=== PATIENT | male | born 1935 | race Caucasian/White ===

== ENCOUNTER 2016-11-29 14:55 | Emergency (ER) | payer OTHER, MEDICARE ==
[~2016-11-29 14:55] MED LIST: ABILIFY5 MG PO; ACETAMINOPHEN325 MG PO; ACETAMINOPHEN650 MG PR; ALPRAZOLAM0.25 MG PO; AMBIEN5 MG PO; ASPIRIN81 M1 PO; CARAFATE EQUIVAL1 GM PO; CARDIZEM C2 PO; CEPHALEXIN500 MG PO; DIGOXIN0.125 MG PO; GABAPENTIN300 MG PO; IPRATROPIUM BROMIDE/ IN; IRON325 MG PO; METHADONE HCL10 MG PO; METOPROLOL SUCC25 MG PO; METRONIDAZOLE500 MG PO; NICOTINE T21 MG/24 H TOP; NITROSTAT0.4 MG SL; O2; RANITIDINE ACID75 MG PO; REGLAN5 MG PO; ULTRAM EQIVALEN50 MG PO; ZOFRAN ODT4 MG PO; ZOLOFT50 MG PO
--- NOTE | 2016-11-29 16:46 | ED NURSING NOTES ---
Clinical Report - Nurses [facility] [place] [address] 11/29/2016 14:55 Patient: KOTA ROCHE TRIAGE Triage time 1550. --16:04 Ronald Forte R.N. History ( triage started, family asking about wait. Notified that no rooms were open and pt would have to wait in WR until room became available. Pt and son state he is fine and they will come back tomorrow. Pt is alert, oriented, no distress. Advised to stay for treatment, pt and family declines.). --16:04 Ronald Forte R.N. DISPOSITION / DISCHARGE The patient left the Emergency Department before triage; patient was accompanied by a family member. The patient appears to be alert, oriented x4, coherent and in no acute distress. The patient stated is leaving the ED due to the long waiting time. Prior to leaving the ED, he was advised to stay for completion of treatment and return if needed. He was informed of the risks of leaving and verbalized understanding of these risks. Patient left without signing form prior to leaving. He left the Emergency Department via private vehicle. --16:05 Ronald Forte R.N. Locked/Released at 11/29/2016 22:27 by Ronald Forte R.N.
--- NOTE | 2016-11-29 16:46 | ED NURSING NOTES ---
Clinical Report - Nurses [facility] [place] [address] 11/29/2016 14:55 Patient: KOTA ROCHE TRIAGE Triage time 1550. --16:04 Ronald Forte R.N. History ( triage started, family asking about wait. Notified that no rooms were open and pt would have to wait in WR until room became available. Pt and son state he is fine and they will come back tomorrow. Pt is alert, oriented, no distress. Advised to stay for treatment, pt and family declines.). --16:04 Ronald Forte R.N. DISPOSITION / DISCHARGE The patient left the Emergency Department before triage; patient was accompanied by a family member. The patient appears to be alert, oriented x4, coherent and in no acute distress. The patient stated is leaving the ED due to the long waiting time. Prior to leaving the ED, he was advised to stay for completion of treatment and return if needed. He was informed of the risks of leaving and verbalized understanding of these risks. Patient left without signing form prior to leaving. He left the Emergency Department via private vehicle. --16:05 Ronald Forte R.N. Locked/Released at 11/29/2016 22:27 by Ronald Forte R.N.
--- NOTE | 2016-11-29 22:27 | ED MED RECONCILIATION SUMMARY ---
Patient: KOTA ROCHE Medication Reconciliation Report [facility] VisitID: [id number] [address] [place] [place] [address] 81y, M Registration Date/Time: 11/29/2016 Weight: (not available) Height/Length: (not available) BMI: (not available) ALLERGIES: The patient's Home Medications are listed below: Not obtained. The source(s) of the original Home Medication information: Not obtained. The following Medications were given to the patient in the Emergency Department: None. The following Medications were prescribed to the patient: None.
--- NOTE | 2016-11-29 22:27 | ED MED RECONCILIATION SUMMARY ---
Patient: KOTA ROCHE Medication Reconciliation Report [facility] VisitID: [id number] [address] [place] [address] 81y, M Registration Date/Time: 11/29/2016 Weight: (not available) Height/Length: (not available) BMI: (not available) ALLERGIES: The patient's Home Medications are listed below: Not obtained. The source(s) of the original Home Medication information: Not obtained. The following Medications were given to the patient in the Emergency Department: None. The following Medications were prescribed to the patient: None.
--- NOTE | 2016-11-29 22:27 | ED MAR SUMMARY ---
..... Medication Administration Record [facility] [address] [place], [place] [id number] Patient: KOTA ROCHE Visit ID: [id number] 81y, M Weight: (not available) Height/Length: (not available) BMI: (not available) ALLERGIES:
--- NOTE | 2016-11-29 22:27 | ED MAR SUMMARY ---
..... Medication Administration Record [facility] [address] [place], [place] [id number] Patient: KOTA ROCHE Visit ID: [id number] 81y, M Weight: (not available) Height/Length: (not available) BMI: (not available) ALLERGIES:
== END 2016-11-29 16:00 | disposition left against medical advice (07) ==
LOC: ED SRH 14:55
DX: Z53.21 Procedure and treatment not carried out due to patient leaving prior to being seen by health care provider (principal)

== ENCOUNTER 2016-12-02 13:16 | Emergency (ER) | payer OTHER, MEDICARE ==
--- NOTE | 2016-12-02 14:52 | DIAGNOSTIC IMAGING REPORT ---
PROCEDURE: XR ANKLE 3 OR 4 VIEWS - LEFT INDICATION: TRAUMA/INJURY TECHNIQUE: Four views. COMPARISON: None. FINDINGS: Moderate soft tissue swelling over the lateral malleolus. Osseous structures are osteopenic. Osseous structure and joint spaces are otherwise normal. No evidence of fracture. IMPRESSION: 1. Normal moderate soft tissue swelling over the lateral malleolus. 2. Osteopenia. 3. Otherwise negative left ankle.
--- NOTE | 2016-12-02 15:35 | ED NURSING NOTES ---
Clinical Report - Nurses [facility] [address] [place] [address] 12/02/2016 13:16 Patient: KOTA ROCHE TRIAGE Triage time 13:29. Acuity: LEVEL 3. Chief Complaint: ABDOMINAL PAIN, NAUSEA, VOMITING and DIARRHEA and (DIARRHEA FOR A WEEK. Weakness, fell a couple of days ago, x2-3. C/O lt ankle and lt rib cage.). Alert. No acute distress. SEPSIS SCREEN: Sepsis Screen: negative. Negative (no infection suspected/documented). --13:40 Elham Noriega R.N. 13:28 12/02/16. BP: 115/62. HR: 96. RR: 20. O2 saturation: 99%. Temp: 98.2 F. Pain level now: 06/27. --13:40 Elham Noriega R.N. Weight: 70.3 kg stated. Height/Length: 74 inches Per Patient. BMI: 19.9. --13:39 Elham Noriega R.N. Medications ALPRAZolam Oral (Tablet 0.25 mg) 1 tablet, as needed (max 2 tab in 24 hours). ASA 81 mg, daily. Digoxin Oral 0.125 mg, daily. Diltiazem HCl Oral 240 mg, daily. Gabapentin Oral 300 mg, 3-4 times a day as needed. Iron Oral. Metoclopramide HCl Oral 5 mg, 3x a day (before meals). Metoprolol Succinate ER Oral (Tablet Extended Release 24 Hour 25 mg) 1 tablet, daily. Nitrostat Sublingual 0.4 mg, as needed. Ondansetron Oral 4 mg, as needed. Oxygen home at 2.5l/min . Ranitidine HCl Oral (Capsule 150 mg) 1 capsule, 2x a day. Sertraline HCl Oral 50 mg, daily. Tramodol 50mg mg q 4-6 hrs prn . Zolpidem Tartrate Oral 5 mg, daily as needed. --13:36 Elham Noriega R.N. Medication/allergy information source: the patient's family. --13:40 Elham Noriega R.N. Allergies Morphine Sulfate. (confusion) Sulfa Drugs. --13:36 Elham Noriega R.N. History Arrived by private vehicle. Historian: patient and family. Accompanied by family. Primary physician ([email or web address]). Onset. (1 weeks ago). He has had nausea, vomiting and diarrhea. ( lt rib and ankle pain). 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 PAST MEDICAL HX: Immunizations: up-to-date. SOCIAL HX: Heavy tobacco smoker (cigarette)- less than 1 pack per day. No alcohol use or drug use. SKIN INTEGRITY ASSESSMENT: Skin integrity risk assessment was performed per protocol. Risk factors identified include restricted mobility and impaired nutrition (cocyx). FUNCTIONAL ASSESSMENT: Functional assessment: no impairments noted. LEARNING NEEDS ASSESSMENT: The learning needs assessment revealed no barriers. FALL RISK ASSESSMENT: Fall risk assessment completed. Risk factors identified include nausea, dizziness and patient age greater than 65 years, history of fall and impairment of mobility and sensation. Fall interventions initiated. Patient placed on stretcher. Side rails up x2. Brakes on Bed in low position. Patient visible from nurses' station and identified as a fall risk by room flagged. Family at bedside. Call light in reach of patient. NUTRITIONAL RISK ASSESSMENT: The patient has experienced recent weight loss. The patient has recently had decreased intake, a decreased appetite, chewing difficulty, recurrent vomiting and recurrent diarrhea. --13:40 Elham Noriega R.N. PROBLEMS: COPD - Chronic Obstructive Pulmonary Disease [Active]. 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 --13:34 Elham Noriega R.N. Kidney disease [Chronic]. Prostate Cancer [Chronic]. Emphysema [Chronic]. Abdominal Pain [Chronic]. Gastroesophageal Reflux Disease [Chronic]. --13:34 Elham Noriega R.N. Hyperkalemia. Drug Poisoning. Hypercapnia. Gastroenteritis. Aortic Dissection. Pressure Ulcer. Hypertension. Back Injury. Back Pain. Lumbar Strain. Fall. UTI - Urinary Tract Infection. Congestive Heart Failure. Hypotension. Atrial Fibrillation. Weakness. Dyspnea. Pneumonia. Depression. Vomiting. Abdominal Pain. Bronchitis. Renal Insufficiency. Anemia. COPD - Chronic Obstructive Pulmonary Disease. Immunizations. GI Bleeding. Syncope. Abnormal Test. Chest Pain. Hyperlipidemia. --13:34 Elham Noriega R.N. Hypertension [RuleOut]. --13:34 Elham Noriega R.N. ADDITIONAL SURGERIES: Abdominal Aortic Aneurysm Repair. Appendectomy. Back Surgery. Cholecystectomy. Endoscopy. Prostatectomy. Renal stents. SMA stent. --13:34 Elham Noriega R.N. Interventions ID band on patient. To room. --13:40 Elham Noriega R.N. PHYSICAL ASSESSMENT Ambulatory to room. Patient gowned. GENERAL / NEURO / PSYCH: Alert. Oriented X 4. Appears anxious. HEENT: Mucous membranes are pink. RESPIRATORY: Respirations not labored. CVS: Capillary refill less than 2 seconds. GI / : Abdominal tenderness in the left upper quadrant. SKIN: Skin is warm and dry. --13:41 Elham Noriega R.N. NURSING PROGRESS NOTES Patient gowned. Head of bed elevated. Two patient identifiers checked. Call light placed in reach. Side rails up x 2. Bed placed in lowest position. Brakes of bed on. Patient ready for evaluation. --13:42 Elham Noriega R.N. 14:12/02/2016 Site #1 started via IV in the right forearm with an 20g angiocath, with aseptic technique and good blood return; one attempt. Blood drawn: rainbow set. Labeled in the presence of the patient. Saline lock flushed with saline (blood banded). --14:48 Elham Noriega R.N. 14:10 12/02/2016 Started bag #1 1000 mL IV Fluids IV NS (Saline); at 750 mL/hr over 1 hour(s) via site #1 via IV pump. Allergies verified and confirmed 5 rights. IV patency established. IV site checked: no pain, redness, or swelling. IV flushed thoroughly pre- and post-medication administration. --14:49 Elham Noriega R.N. 15:10 12/02/2016 Site #1 removed. Catheter intact. Manual pressure and bandaid applied. --15:56 Elham Noriega R.N. 15:11 12/02/2016 IV Fluids IV NS Discontinued: bag #1 infused upon discharge. Total amount infused: 1000 mL. IV patency established. IV site checked: no pain, redness, or swelling. IV flushed thoroughly. --15:56 Elham Noriega R.N. 15:45 12/02/2016 Tramadol (TraMADol HCl) PO 50 mg given. Allergies verified, confirmed 5 rights and sedative warning given to the patient. --15:56 Elham Noriega R.N. DISPOSITION / DISCHARGE 15:50. Condition at departure: improved. No learning barriers present. Discharge instructions provided and reviewed with the patient and family. Patient and family verbalized understanding. Written instructions provided in Yi. The patient was discharged home and accompanied by family. He left the Emergency Department in a wheelchair and via private vehicle. Family member driving. Medication list reviewed and validated. --16:00 Elham Noriega R.N. 15:57 12/02/16. BP: 120/78. HR: 81. RR: 16. O2 saturation: 99% on room air. Temp: deferred. Pain level now: 01/25. 14:37 12/02/16. BP: 119/78. HR: 79. RR: 16. O2 saturation: 100% on room air. 13:28 12/02/16. BP: 115/62. HR: 96. RR: 20. O2 saturation: 99%. Temp: 98.2 F. Pain level now: 06/27. --16:00 Elham Noriega R.N. Locked/Released at 12/02/2016 16:02 by Elham Noriega R.N.
--- NOTE | 2016-12-02 15:35 | ED ORDER SUMMARY ---
..... Patient: KOTA ROCHE OrderSheet [facility] VisitID: [id number] [place] [address] 81y, M Registration Date/Time: 12/02/2016 ORDER SHEET Weight: 70.3 kg (stated) Allergies: Morphine Sulfate, Sulfa Drugs GENERAL ORDERS: Ankle 3 or 4V Left Urgent (13:50 12/02/2016 Sweta Armstrong) (Ack 13:51 LTapper) (14:47 Jameson R.N.) CBC w Diff Urgent (13:50 12/02/2016 Sweta Armstrong) (Ack 13:51 LTapper) (14:47 Jameson Magaña.N.) CMP Urgent (13:50 12/02/2016 Sweta Armstrong) (Ack 13:51 LTapper) (14:47 Jameson R.N.) MEDICATION ORDERS: Tramadol PO 50 mg (NOW) (15:37 12/02/2016 Sweta Armstrong) (15:55 Jameson R.N.) Pt is on Tramadol at home IV FLUIDS: IV NS : initial bolus none -, then 1000 mL/hr for X1 (NOW) (13:49 12/02/2016 Sweta Armstrong) (14:49 Jameson R.NJunie) ORDER SHEET NOTES: [Electronically signed by Artem Ware Dr. (15:38 12/02/2016)] [Electronically signed by Elham Noriega R.N. (16:02 12/02/2016)] [Electronically locked/signed by Elham Noriega R.N. (16:02 12/02/2016)]
--- NOTE | 2016-12-02 15:35 | ED ORDER SUMMARY ---
..... Patient: KOTA ROCHE OrderSheet [facility] VisitID: [id number] [place] [address] 81y, M Registration Date/Time: 12/02/2016 ORDER SHEET Weight: 70.3 kg (stated) Allergies: Morphine Sulfate, Sulfa Drugs GENERAL ORDERS: Ankle 3 or 4V Left Urgent (13:50 12/02/2016 Sweta Armstrong) (Ack 13:51 LTapper) (14:47 Jameson R.N.) CBC w Diff Urgent (13:50 12/02/2016 Sweta Armstrong) (Ack 13:51 LTapper) (14:47 Jameson Magaña.N.) CMP Urgent (13:50 12/02/2016 Sweta Armstrong) (Ack 13:51 LTapper) (14:47 Jameson R.N.) MEDICATION ORDERS: Tramadol PO 50 mg (NOW) (15:37 12/02/2016 Sweta Armstrong) (15:55 Jameson R.N.) Pt is on Tramadol at home IV FLUIDS: IV NS : initial bolus none -, then 1000 mL/hr for X1 (NOW) (13:49 12/02/2016 Sweta Armstrong) (14:49 Jameson R.NJunie) ORDER SHEET NOTES: [Electronically signed by Artem Ware Dr. (15:38 12/02/2016)] [Electronically signed by Elham Noriega R.N. (16:02 12/02/2016)] [Electronically locked/signed by Elham Noriega R.N. (16:02 12/02/2016)]
--- NOTE | 2016-12-02 15:35 | ED CLINICAL REPORT ---
Clinical Report - Physicians/Mid Levels [facility] [address] [place] [address] 12/02/2016 13:16 [id number] Time Seen: 13:41; initial patient contact. Arrived- By private vehicle. Historian- patient. HISTORY OF PRESENT ILLNESS Chief Complaint: VOMITING and DIARRHEA. This started about 1 week ago and is still present (Loose stool QOD persistent). It was gradual in onset and has been intermittent. The patient has had nausea, vomiting and diarrhea. No black stools, bloody stools, abdominal pain, constipation or flank pain. Has not recently been on antibiotics. The illness is described as mild. Similar symptoms previously: Many times. ( Son states he had C diff last month and was asymptomatic after Tx. This course of diarrhea is much milder than then.). Recent medical care: Not recently seen/assessed. REVIEW OF SYSTEMS No fever, muscle aches, cough, chest pain or difficulty breathing. No jaundice. He has had joint pain, involving the left ankle. All systems otherwise negative, except as recorded above. PAST HISTORY COPD - Chronic Obstructive Pulmonary Disease [Active]. 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 Kidney disease [Chronic]. Prostate Cancer [Chronic]. Emphysema [Chronic]. Abdominal Pain [Chronic]. Gastroesophageal Reflux Disease [Chronic]. Hyperkalemia. Drug Poisoning. Hypercapnia. Gastroenteritis. Aortic Dissection. Pressure Ulcer. Hypertension. Back Injury. Back Pain. Lumbar Strain. Fall. UTI - Urinary Tract Infection. Congestive Heart Failure. Hypotension. Atrial Fibrillation. Weakness. Dyspnea. Pneumonia. Depression. Vomiting. Abdominal Pain. Bronchitis. Renal Insufficiency. Anemia. COPD - Chronic Obstructive Pulmonary Disease. Immunizations. GI Bleeding. Syncope. Abnormal Test. Chest Pain. Hyperlipidemia. Additional Surgeries: Abdominal Aortic Aneurysm Repair. Appendectomy. Back Surgery. Cholecystectomy. Endoscopy. Prostatectomy. Renal stents. SMA stent. SOCIAL HISTORY Current every day smoker. No alcohol use or drug use. Is a local resident. Has good social support. ADDITIONAL NOTES The nursing notes have been reviewed with agreement regarding the chief complaint, PMH and patient medications and allergies. PHYSICAL EXAM Vital Signs: 12/02/2016 13:28 BP: 115/62. HR: 96. RR: 20. O2 saturation: 99%. Temp: 98.2 F. Pain level now: 06/27. Have been reviewed as normal. Appearance: Alert. Oriented X3. No acute distress. Eyes: Eyes normal inspection. ENT: Pharynx normal. CVS: Normal heart rate and rhythm. Heart sounds normal. Respiratory: No respiratory distress. Breath sounds normal. Abdomen: Soft and nontender. Bowel sounds normal. No organomegaly. No mass. Skin: Skin warm and dry. Normal skin color. No rash. Normal skin turgor. Extremities: Left ankle: mild tenderness and swelling. No limitation in ROM. No lower extremity edema. Neuro: Oriented X 3. No motor deficit. LABS, X-RAYS, AND EKG Lt Ankle X-ray: No fracture. Normal alignment. No bony lesion. Soft tissue swelling. Views: 3 view ankle series. Technique: good. The X-rays were independently viewed by me and interpreted contemporaneously by me. Prior films were not available for comparison. Interpretation time: 15:00. Laboratory Tests: CBC w Diff: (VERONICA: 12/02/2016 14:10) ( MsgRcvd 12/02/2016 14:26) Final results Test Result Flag Units (Reference) WHITE BLOOD COUNT 5.4 K/uL (4.5-11.5) RED BLOOD COUNT 3.52 L M/uL (4.50-5.90) HEMOGLOBIN 10.1 L gm/dL (13.5-17.5) HEMATOCRIT 31.5 L % (41.0-53.0) MEAN CELL VOLUME 89 fL (80-100) MEAN CORPUSCULAR HGB 29 pg (26-34) MEAN CORPUSCULAR HGB CONC 32 g/dL (31-37) RED CELL DISTRIBUTION WIDTH 16.7 H % (11.6-14.8) PLATELET COUNT 196 K/uL (150-400) LYMPH % 21.0 L % (25-40) MONO % 5.4 % (3-14) GRANULOCYTE % 73.6 CMP: (VERONICA: 12/02/2016 14:10) ( MngRcvd 12/02/2016 14:48) Final results Test Result Flag Units (Reference) GLUCOSE 111 H mg/dL (70-110) BUN 23 H mg/dL (7-18) CREATININE 1.9 H mg/dL (0.6-1.3) Estimated GFR 36.53 mL/min Estimated GFR- 44.27 mL/min Note: Persistent reduction over 3 months in eGFR<60 mL/min/1.73 m2 defines CKD. Patients with eGFR values>=60 mL/min/1.73 m2 may also have CKD if evidence ofpersistent proteinuria. Additional information may be foundat www.kidney.org. SODIUM 146 H mmol/L (136-145) POTASSIUM 4.1 mmol/L (3.5-5.1) CHLORIDE 109 H mmol/L (98-107) CARBON DIOXIDE 30 mmol/L (21-32) CALCIUM 7.9 L mg/dL (8.5-10.1) TOTAL PROTEIN 6.5 g/dL (6.4-8.2) ALBUMIN 2.9 L g/dL (3.3-5.0) BILIRUBIN, TOTAL 0.6 mg/dL (0.0-1.0) ALKALINE PHOSPHATASE 107 U/L (46-116) AST (SGOT) 16 U/L (15-37) ALT (SGPT) 15 U/L (12-78) . PROGRESS AND PROCEDURES Course of Care: 12/02/2016 13:28 BP: 115/62. HR: 96. RR: 20. O2 saturation: 99%. Temp: 98.2 F. Pain level now: 8/10. Vital Signs: have been reviewed as normal. Disposition: Condition: good. CLINICAL IMPRESSION Acute viral gastroenteritis. INSTRUCTIONS Drink plenty of fluids until better. Your Current Medications: CONTINUE TAKING THE FOLLOWING MEDICATIONS: ALPRAZolam Oral : Tablet 0.25 mg, 1 tablet, prn, max 2 tab in 24 hours. ASA : 81 mg daily. Digoxin Oral : 0.125 mg daily. Diltiazem HCl Oral : 240 mg daily. Gabapentin Oral : 300 mg 3-4 times a day, prn. Iron Oral. Metoclopramide HCl Oral : 5 mg 3x a day, before meals. Metoprolol Succinate ER Oral : Tablet Extended Release 24 Hour 25 mg, 1 tablet daily. Nitrostat Sublingual : 0.4 mg, prn. Ondansetron Oral : 4 mg, prn. Oxygen home at 2.5l/min *. Ranitidine HCl Oral : Capsule 150 mg, 1 capsule 2x a day. Sertraline HCl Oral : 50 mg daily. Tramodol 50mg mg q 4-6 hrs prn *. Zolpidem Tartrate Oral : 5 mg daily, prn. Follow-up: Follow up with your doctor in about two days. Call for an appointment. Blood pressure screening was not performed during this visit because the patient has an active diagnosis of hypertension. (Electronically signed by Artem Ware Dr. 12/02/2016 15:38)
--- NOTE | 2016-12-02 16:02 | ED MED RECONCILIATION SUMMARY ---
Patient: KOTA ROCHE Medication Reconciliation Report [facility] VisitID: [id number] [address] [place] [address] 81y, M Registration Date/Time: 12/02/2016 Weight: 70.3 kg Height/Length: 74 in. BMI: 19.9 ALLERGIES: Morphine Sulfate, Sulfa Drugs The patient's Home Medications are listed below: CONTINUE TAKING THE FOLLOWING MEDICATIONS: ALPRAZolam Oral (0.25 mg) 1 tablet, max 2 tab in 24 hours ASA 81 mg, daily Digoxin Oral 0.125 mg, daily Diltiazem HCl Oral 240 mg, daily Gabapentin Oral 300 mg, 3-4 times a day Iron Oral Metoclopramide HCl Oral 5 mg, 3x a day, before meals Metoprolol Succinate ER Oral (25 mg) 1 tablet, daily Nitrostat Sublingual 0.4 mg Ondansetron Oral 4 mg Oxygen home at 2.5l/min Ranitidine HCl Oral (150 mg) 1 capsule, 2x a day Sertraline HCl Oral 50 mg, daily Tramodol 50mg mg q 4-6 hrs prn Zolpidem Tartrate Oral 5 mg, daily The source(s) of the original Home Medication information: patient's family member The following Medications were given to the patient in the Emergency Department: IV NS IV Fluids bolus 0, then 750 mL/hr, administered: 12/02/2016 2:10:00 PM Tramadol [PO] PO 50 mg, administered: 12/02/2016 3:45:00 PM The following Medications were prescribed to the patient: None.
--- NOTE | 2016-12-02 16:02 | ED MED RECONCILIATION SUMMARY ---
Patient: KOTA ROCHE Medication Reconciliation Report [facility] VisitID: [id number] [address] [place] [address] 81y, M Registration Date/Time: 12/02/2016 Weight: 70.3 kg Height/Length: 74 in. BMI: 19.9 ALLERGIES: Morphine Sulfate, Sulfa Drugs The patient's Home Medications are listed below: CONTINUE TAKING THE FOLLOWING MEDICATIONS: ALPRAZolam Oral (0.25 mg) 1 tablet, max 2 tab in 24 hours ASA 81 mg, daily Digoxin Oral 0.125 mg, daily Diltiazem HCl Oral 240 mg, daily Gabapentin Oral 300 mg, 3-4 times a day Iron Oral Metoclopramide HCl Oral 5 mg, 3x a day, before meals Metoprolol Succinate ER Oral (25 mg) 1 tablet, daily Nitrostat Sublingual 0.4 mg Ondansetron Oral 4 mg Oxygen home at 2.5l/min Ranitidine HCl Oral (150 mg) 1 capsule, 2x a day Sertraline HCl Oral 50 mg, daily Tramodol 50mg mg q 4-6 hrs prn Zolpidem Tartrate Oral 5 mg, daily The source(s) of the original Home Medication information: patient's family member The following Medications were given to the patient in the Emergency Department: IV NS IV Fluids bolus 0, then 750 mL/hr, administered: 12/02/2016 2:10:00 PM Tramadol [PO] PO 50 mg, administered: 12/02/2016 3:45:00 PM The following Medications were prescribed to the patient: None.
--- NOTE | 2016-12-02 16:02 | ED DISCHARGE INSTRUCTIONS ---
Patient: KOTA ROCHE General Instructions [facility] VisitID: [id number] [place] [address] 81y, M Registration Date/Time: 12/02/2016 Acute viral gastroenteritis. INSTRUCTIONS Drink plenty of fluids until better. Your Current Medications: CONTINUE TAKING THE FOLLOWING MEDICATIONS: ALPRAZolam Oral : Tablet 0.25 mg, 1 tablet, prn, max 2 tab in 24 hours. ASA : 81 mg daily. Digoxin Oral : 0.125 mg daily. Diltiazem HCl Oral : 240 mg daily. Gabapentin Oral : 300 mg 3-4 times a day, prn. Iron Oral. Metoclopramide HCl Oral : 5 mg 3x a day, before meals. Metoprolol Succinate ER Oral : Tablet Extended Release 24 Hour 25 mg, 1 tablet daily. Nitrostat Sublingual : 0.4 mg, prn. Ondansetron Oral : 4 mg, prn. Oxygen home at 2.5l/min *. Ranitidine HCl Oral : Capsule 150 mg, 1 capsule 2x a day. Sertraline HCl Oral : 50 mg daily. Tramodol 50mg mg q 4-6 hrs prn *. Zolpidem Tartrate Oral : 5 mg daily, prn. Follow-up: Follow up with your doctor in about two days. Call for an appointment. Blood pressure screening was not performed during this visit because the patient has an active diagnosis of hypertension. ADDITIONAL INFORMATION Viral Gastroenteritis (6Yr-Adult) Gastroenteritis is another name for thestomach flu.It is most often caused by a virus that affects the stomach and intestinal tract. Symptoms include stomach cramping and fever, vomiting and/or diarrhea, and can last from 2 to 7 days. The danger from repeated vomiting or diarrhea is dehydration. This is the loss of too much water and minerals from the body. When this occurs, body fluids must be replaced. Antibiotics are not effective for this illness, but simple home treatment will be helpful. Home Care If symptoms are severe, rest at home for the next 24 hours. Avoid tobacco, caffeine, and alcohol use, which can worsen symptoms. Acetaminophen (Tylenol) or ibuprofen (Motrin, Advil) may be usedfor fever or pain unless another medication was prescribed. NOTE: If you have chronic liver or kidney disease or ever had a stomach ulcer or GI bleeding, talk with your doctor before using these medicines. Aspirin should never be used in anyone under 18 years of age who is ill with a fever. It may cause severe liver damage. If medicines for diarrhea or vomiting were prescribed, be sure they are takenonly as directed. If vomiting, drink small amounts of clear fluids (such as water, sports drinks, clear sodas) at frequent intervals to prevent dehydration. Start with 1 to 2 tablespoons every 10 minutes. Once vomiting stops, follow these guidelines: During The First 12 To 24 Hours follow the diet below: Beverages: Sport drinks like Gatorade, soft drinks without caffeine; javier evelia, mineral water (plain or flavored), decaffeinated tea and coffee. Soups: Clear broth, consomm and bouillon Desserts: Plain gelatin (Jell-O), Popsicles and fruit juice bars. During The Next 24 Hours you may add the following to the above: Hot cereal, plain toast, bread, rolls, crackers Plain noodles, rice, mashed potatoes, chicken noodle or rice soup Unsweetened canned fruit (avoid pineapple), bananas Limit fat intake to less than 15 grams per day by avoiding margarine, butter, oils, mayonnaise, sauces, gravies, fried foods, peanut butter, meat, poultry, and fish. Limit fiber; avoid raw or cooked vegetables, fresh fruits (except bananas), and bran cereals. Limit caffeine and chocolate. Do not use spices or seasonings except salt. During The Next 24 Hours The patient can gradually resume a normal diet as symptoms lessen. Preventing Spread Hand washing with soap and water is the best way to prevent the spread of viruses. Caregivers should wash their hands before andafter touching the sick person. The sick person, as well as everyone in the family,should wash their hands after using the toilet and before meals. Clean the toilet after each use. People with diarrhea should not prepare food for others. If you are preparing your own foods, wash your hands before and after. Follow Up with your doctor as advised. Call your doctor if you are not improving over the next 2 to 3 days. If a stool (diarrhea) sample was taken, you may call in 2 days (or as directed) for the results. Get Prompt Medical Attention if any of the following occur: Increasing abdominal pain Continued vomiting (unable to keep liquids down) Frequent diarrhea (more than 5 times a day) Blood in vomit or stool (black or red color) Dark urine, reduced urine output, or extreme thirst Weakness, dizziness, fainting Drowsiness, confusion, stiff neck, or seizure Fever of 100.4F (38C) oral or higher, not better with fever medication New rash You have been given the following additional information: Gastroenteritis, Viral (8Y-Adult) (Electronically signed by Artem Ware Dr. 12/02/2016 15:38)
--- NOTE | 2016-12-02 16:02 | ED MAR SUMMARY ---
..... Medication Administration Record Former[facility] [address] [place] [address] Patient: KOTA ROCHE Visit ID: [id number] 81y, M Weight: 70.3 kg Height/Length: 74 in BMI: 19.9 ALLERGIES: Morphine Sulfate, Sulfa Drugs Start 14:10 12/02/2016 Elham Noriega R.N., Stop 15:11 12/02/2016 Elham Noriega R.N. Medication Administered: IV NS (SALINE), Dose: IV Fluids over 1 hour(s), Rate: 750 mL/hr, Dispensed: 1000 mL bag, Site: #1 right forearm. Medication Ordered: IV NS : initial bolus none -, then 1000 mL/hr for X1 (NOW). Given 15:45 12/02/2016 Elham Noriega R.N. Medication Administered: TRAMADOL [PO] (TRAMADOL HCL), Dose: 50 mg PO. Medication Ordered: Tramadol PO 50 mg (NOW).
--- NOTE | 2016-12-02 16:02 | ED MAR SUMMARY ---
..... Medication Administration Record [facility] [address] [place] [address] Patient: KOTA ROCHE Visit ID: [id number] 81y, M Weight: 70.3 kg Height/Length: 74 in BMI: 19.9 ALLERGIES: Morphine Sulfate, Sulfa Drugs Start 14:10 12/02/2016 Elham Noriega R.N., Stop 15:11 12/02/2016 Elham Noriega R.N. Medication Administered: IV NS (SALINE), Dose: IV Fluids over 1 hour(s), Rate: 750 mL/hr, Dispensed: 1000 mL bag, Site: #1 right forearm. Medication Ordered: IV NS : initial bolus none -, then 1000 mL/hr for X1 (NOW). Given 15:45 12/02/2016 Elham Noriega R.N. Medication Administered: TRAMADOL [PO] (TRAMADOL HCL), Dose: 50 mg PO. Medication Ordered: Tramadol PO 50 mg (NOW).
== END 2016-12-02 15:50 | disposition home or self-care (01) ==
LOC: ED SRH 13:16
DX: A08.4 Viral intestinal infection, unspecified (principal); K21.9 Gastro-esophageal reflux disease without esophagitis; J44.9 Chronic obstructive pulmonary disease, unspecified; Z79.891 Long term (current) use of opiate analgesic; Z79.899 Other long term (current) drug therapy; Z88.2 Allergy status to sulfonamides; F17.210 Nicotine dependence, cigarettes, uncomplicated

== ENCOUNTER 2016-12-24 13:49 | Inpatient (IN) | payer OTHER, MEDICARE ==
[~2016-12-24] VITALS: Ht 188 cm; Wt 72.3 kg
[2016-12-24] VITALS (7 sets, daily range): BP systolic 77–96; BP diastolic 46–62
--- NOTE | 2016-12-24 16:05 | DIAGNOSTIC IMAGING REPORT ---
PROCEDURE: XR CHEST 1 VIEW INDICATION: SHORTNESS OF BREATH, initial encounter TECHNIQUE: Portable AP view 03:35 p.m. COMPARISON: Chest x-ray 09/23/2016 FINDINGS: The patient is rotated. New mild retrocardiac consolidation with small left pleural effusion stable aneurysmal thoracic aorta. Heart size is normal. Thorax is normal. IMPRESSION: 1. Left basilar pneumonia with small pleural effusion 2. Stable aneurysmal thoracic aorta
--- NOTE | 2016-12-24 16:36 | ED CLINICAL REPORT ---
Clinical Report - Physicians/Mid Levels [facility] [address] [place] [address] 12/24/2016 13:50 Patient: KOTA ROCHE Time Seen: 14:52. Arrived- By private vehicle. Historian- patient and son. HISTORY OF PRESENT ILLNESS Chief Complaint: DYSPNEA, COUGH and WEAKNESS. This started several days ago and is still present. It was gradual in onset and has been waxing/waning. At its maximum, severity described as moderate. When seen in the E.D., severity described as moderate. The patient has had weight loss, fatigue and generalized weakness. (the patient has a home health nurse who comes twice weekly. She was at his home today and was concerned because his blood pressure was low and his heart rate was up.). REVIEW OF SYSTEMS The patient has had chills, a cough and difficulty breathing and experienced sweats. No fever, calf pain, chest pain, pedal edema or abdominal pain. No black stools, bloody stools, constipation, diarrhea or nausea. No vomiting or urinary problems. The patient has had palpitations (chronically). It has been similar to previous symptoms. All systems otherwise negative, except as recorded above. PAST HISTORY PCP - ZOLTAN FONSECA Problems: Hyperkalemia. Drug Poisoning. Hypercapnia. Gastroenteritis. Aortic Dissection. Pressure Ulcer. Hypertension. Back Injury. Back Pain. Lumbar Strain. Fall. UTI - Urinary Tract Infection. Congestive Heart Failure. Hypotension. Atrial Fibrillation. Weakness. Dyspnea. Pneumonia. Depression. Vomiting. Abdominal Pain. Bronchitis. Renal Insufficiency. Anemia. COPD - Chronic Obstructive Pulmonary Disease. GI Bleeding. Syncope. Abnormal Test. Chest Pain. Hyperlipidemia. Medications: ALPRAZolam Oral (Tablet 0.25 mg) 1 tablet, as needed (max 2 tab in 24 hours). ASA 81 mg, daily. Digoxin Oral 0.125 mg, daily. Diltiazem HCl Oral 240 mg, daily. Gabapentin Oral 300 mg, 3-4 times a day as needed. Iron Oral. Metoclopramide HCl Oral 5 mg, 3x a day (before meals). Metoprolol Succinate ER Oral (Tablet Extended Release 24 Hour 25 mg) 1 tablet, daily. Nitrostat Sublingual 0.4 mg, as needed. Ondansetron Oral 4 mg, as needed. Oxygen home at 2.5l/min . Ranitidine HCl Oral (Capsule 150 mg) 1 capsule, 2x a day. Tramodol 50mg mg q 4-6 hrs prn . Zolpidem Tartrate Oral 5 mg, daily as needed. Allergies: Morphine Sulfate. (confusion) Sulfa Drugs. SOCIAL HISTORY Current every day heavy tobacco smoker (cigarette)- 1 pack per day. No alcohol use or drug use. He lives with a family member. Has good social support. FAMILY HISTORY Denies family medical history. ADDITIONAL NOTES The nursing notes have been reviewed. PHYSICAL EXAM Vital Signs: 12/24/2016 13:53 BP: 84/58. HR: 117. RR: 18. O2 saturation: 96%. Pain level now: 7/10. Have been reviewed. Appearance: Alert. (Markedly kyphotic). Eyes: Pupils equal, round and reactive to light. ENT: Pharynx normal. Neck: Neck supple. CVS: Abnormal rhythm, which is irregularly irregular. Respiratory: No respiratory distress. Prolonged expirations. Decreased air movement. Mild bilateral rhonchi present in the bases. No wheezes. Abdomen: No visible injury. Soft and nontender. Bowel sounds normal. No organomegaly. No mass. Skin: Skin warm and dry. Normal skin color. No rash. Normal skin turgor. Extremities: Extremities exhibit normal ROM. No calf tenderness. No lower extremity edema. LABS, X-RAYS, AND EKG EKG: Rate: 105. Atrial fibrillation. Decreased QRS voltage. Non-specific ST segment / T wave abnormalities. Changes present when compared to prior EKG. (23 September 2016). The study has been independently viewed by me. Chest X-ray: (IMPRESSION: 1. Left basilar pneumonia with small pleural effusion 2. Stable aneurysmal thoracic aorta). The X-rays were interpreted by the radiologist and contemporaneously by me. Laboratory Tests: UA-Culture if indicated: (VERONICA: 12/24/2016 16:30) ( MsgRcvd 12/24/2016 16:54) Final results Test Result Flag Units (Reference) URINE COLOR YELLOW URINE APPEARANCE CLEAR URINE GLUCOSE NEGATIVE (NEGATIVE) URINE BILIRUBIN NEGATIVE (NEGATIVE) URINE KETONE NEGATIVE (NEGATIVE) URINE SPECIFIC GRAVITY 1.020 (1.010-1.030) URINE PH 6.0 (5.0-8.0) URINE PROTEIN 1+ (NEGATIVE) URINE UROBILINOGEN 0.2 EU/dL (0.2-1.0) URINE NITRITE NEGATIVE (NEGATIVE) URINE BLOOD NEGATIVE (NEGATIVE) URINE LEUK ESTERASE NEGATIVE (NEGATIVE) URINE RBC 0-1 rbc/hpf (0-1) URINE WBC 0-1 wbc/hpf (0-1) URINE EPITHELIAL CELLS 0-1 EPI/hpf (0-5) URINE BACTERIA NONE SEEN (NONE SEEN) URINE COMMENT CULT NOT INDICATED 3-5 Hyaline Casts/l.p.f.2+ AmorphousURINE CULTURES ARE SET-UP BASED ON THE FOLLOWING CRITERIA:POSITIVE NITRITEPOSITIVE LEUKOCYTE ESTERASEGREATER THAN 10 WHITE BLOOD CELLSMODERATE (2+) OR GREATER BACTERIA CBC w Diff: (VERONICA: 12/24/2016 14:00) ( [facility] 12/24/2016 16:37) Final results Test Result Flag Units (Reference) WHITE BLOOD COUNT 20.4 H K/uL (4.5-11.5) RED BLOOD COUNT 3.44 L M/uL (4.50-5.90) HEMOGLOBIN 10.3 L gm/dL (13.5-17.5) HEMATOCRIT 31.3 L % (41.0-53.0) MEAN CELL VOLUME 91 fL (80-100) MEAN CORPUSCULAR HGB 30 pg (26-34) MEAN CORPUSCULAR HGB CONC 33 g/dL (31-37) RED CELL DISTRIBUTION WIDTH 17.2 H % (11.6-14.8) PLATELET COUNT 263 K/uL (150-400) POLY % 70 % (50-75) BAND % 8 % (0-8) LYMPH 11 L % (25-40) MONO 11 % (3-14) EOSINOPHIL % 0 % (0-4) BASOPHIL % 0 % (0-2) METAMYELOCYTE % 0 % (0-1) MYELOCYTE 0 % (0-1) OTHER CELL TYPE 0 ANISOCYTOSIS 1+ [id number]: (VERONICA: 12/24/2016 14:00) ( MsgRcvd 12/24/2016 17:28) Final results Test Result Flag Units (Reference) PROCALCITONIN <0.5 ng/mL (0-0.5) PCT Concentration: Interpretation : Risk/option for action PCT <=0.5 ng/mL : Systemic : Low risk forinfection(sepsis): progression to severeis not likely. : systemic infection.Local bacterial : CAUTION-PCT levelsinfection is : below 0.5 ng/mL do notpossible. : exclude an infection,because localizedinfections (withoutsystemic signs) may beassociated with suchlow levels. If PCT ismeasured very earlyafter a bacterialchallenge (usually <6hours), these valuesmay still be low. Inthis case PCT shouldbe re-assessed 6-24hours later. PCT >0.5 and : Systemic infection: Moderate risk for<= 2 ng/mL : (sepsis) is : progression to severepossible, but : systemic infection.other conditions : The patient should beare known to : closely monitoredelevate PCT. : both clinically andby re-assessing PCTwithin 6-24 hours. PCT > 2 ng/mL : Systemic infection: High risk for(sepsis) is likely: progression to severeunless other : systemic infection.causes are known. : PCT >= 10 ng/mL : Important systemic: High likelihood ofinflammatory : severe sepsis orresponse, almost : septic shock.exclusively due to:severe bacterial :sepsis or septic :shock. : Lactate, Serum: (VERONICA: 12/24/2016 17:00) ( [facility] 12/24/2016 17:52) Final results Test Result Flag Units (Reference) LACTIC ACID 2.2 H mmol/L (0.4-2.0) BNP: (VERONICA: 12/24/2016 14:00) ( [facility] 12/24/2016 15:57) Final results Test Result Flag Units (Reference) B-TYPE NATRIURETIC PEPTIDE 158 H pg/ml (5-100) CMP: (VERONICA: 12/24/2016 14:00) ( [facility] 12/24/2016 15:42) Final results Test Result Flag Units (Reference) GLUCOSE 146 H mg/dL (70-110) BUN 31 H mg/dL (7-18) CREATININE 3.1 H mg/dL (0.6-1.3) Estimated GFR 20.76 mL/min Estimated GFR- 25.16 mL/min Note: Persistent reduction over 3 months in eGFR<60 mL/min/1.73 m2 defines CKD. Patients with eGFR values>=60 mL/min/1.73 m2 may also have CKD if evidence ofpersistent proteinuria. Additional information may be foundat www.[email or web address].org. SODIUM 141 mmol/L (136-145) POTASSIUM 3.4 L mmol/L (3.5-5.1) CHLORIDE 103 mmol/L (98-107) CARBON DIOXIDE 24 mmol/L (21-32) CALCIUM 8.4 L mg/dL (8.5-10.1) TOTAL PROTEIN 6.5 g/dL (6.4-8.2) ALBUMIN 2.6 L g/dL (3.3-5.0) BILIRUBIN, TOTAL 0.9 mg/dL (0.0-1.0) ALKALINE PHOSPHATASE 104 U/L (46-116) AST (SGOT) 13 L U/L (15-37) ALT (SGPT) 10 L U/L (12-78) LIPASE 48 L U/L (73-393) AMYLASE 19 L U/L (25-115) CPK 24 U/L (24-260) TROPONIN I 0.07 ng/mL (0.00-1.5) TROPONIN REFERENCE RANGE:<0.1 NEGATIVE0.1-1.5 INDETERMINANT>1.5 POSITIVE . PROGRESS AND PROCEDURES Course of Care: Patient is stable. Discussed case with hospitalist, (Edmond churchill saw the patient in the ER). Reviewed test results and need for additional work-up. Agreed upon treatment plan, need for patient follow-up and decision to admit. Patient/family counseled. Old medical records reviewed. Disposition: Admitted to the Critical Care Unit. CLINICAL IMPRESSION Hypotension. Pneumonia. Renal insufficiency. (Electronically signed by Kota Rodriguez MD 12/24/2016 18:57)
--- NOTE | 2016-12-24 16:36 | ED NURSING NOTES ---
Clinical Report - Nurses [facility] [address] [place] [address] 12/24/2016 13:50 [id number] Triage time 13:53 Dec 24 2016. Acuity: LEVEL 3. Chief Complaint: DIZZINESS and WEAKNESS. Alert. RAJESH COMA SCORE: [place] Coma Scale: 15- eyes open spontaneously (4); best verbal response- oriented x 4 (5); best motor response- obeys commands (6). --14:04 Venkata Albarado R.N. 13:53 12/24/16. BP: 84/58. HR: 117 (irregular). RR: 18. O2 saturation: 96% on nasal cannula at 2 liters/minute. Pain level now: 7/10. Additional comments: bACK AND lEG pAIN. --14:04 Venkata Albarado R.N. 13:53 12/24/16. Temp: 97.2 F (oral). --19:23 Venkata Albarado R.N. Weight: 58.5 kg. --13:54 Venkata Albarado R.N.. Height/Length: 108 inches Per Patient. BMI: 7.8. --13:52 Venkata Albarado R.N. Medications ALPRAZolam Oral (Tablet 0.25 mg) 1 tablet, as needed (max 2 tab in 24 hours). ASA 81 mg, daily. Digoxin Oral 0.125 mg, daily. Diltiazem HCl Oral 240 mg, daily. Gabapentin Oral 300 mg, 3-4 times a day as needed. Iron Oral. Metoclopramide HCl Oral 5 mg, 3x a day (before meals). Metoprolol Succinate ER Oral (Tablet Extended Release 24 Hour 25 mg) 1 tablet, daily. Nitrostat Sublingual 0.4 mg, as needed. Ondansetron Oral 4 mg, as needed. Oxygen home at 2.5l/min . Ranitidine HCl Oral (Capsule 150 mg) 1 capsule, 2x a day. Tramodol 50mg mg q 4-6 hrs prn . Zolpidem Tartrate Oral 5 mg, daily as needed. --13:56 Venkata Albarado R.N. Allergies Morphine Sulfate. (confusion) Sulfa Drugs. --13:56 Venkata Albarado R.N. History Historian: patient. ( Dizziness with Low BP and leg and Back Pain (chronic)). Patient was last known well (One and half Weeks ago). He has had trouble walking and weakness. Treatment SEARCH SPECIALIST: None. PAST MEDICAL HX: Immunizations: up-to-date. SOCIAL HX: Heavy tobacco smoker (cigarette)- 1 pack per day. No alcohol use or drug use. No infectious disease exposure. ABUSE ASSESSMENT: No report of abuse. FALL RISK ASSESSMENT: Fall risk assessment completed. No fall risk identified. NUTRITIONAL RISK ASSESSMENT: The nutritional risk assessment revealed no deficiencies. FUNCTIONAL ASSESSMENT: Functional assessment: no impairments noted. LEARNING NEEDS ASSESSMENT: The learning needs assessment revealed no barriers. SKIN INTEGRITY ASSESSMENT: Skin integrity risk assessment completed. No skin integrity risk identified. --14:04 Venkata Albarado R.N. PROBLEMS: COPD - Chronic Obstructive Pulmonary Disease [Active]. 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 --14:03 Venkata Albarado R.N. Kidney disease [Chronic]. Prostate Cancer [Chronic]. Emphysema [Chronic]. Abdominal Pain [Chronic]. Gastroesophageal Reflux Disease [Chronic]. --14:03 Venkata Albarado R.N. Hyperkalemia. Drug Poisoning. Hypercapnia. Gastroenteritis. Pressure Ulcer. Hypertension. Back Injury. Back Pain. Lumbar Strain. Fall. UTI - Urinary Tract Infection. Congestive Heart Failure. Hypotension. Weakness. Dyspnea. Pneumonia. Depression. Vomiting. Abdominal Pain. Bronchitis. Renal Insufficiency. Anemia. COPD - Chronic Obstructive Pulmonary Disease. Immunizations. GI Bleeding. Syncope. Abnormal Test. Chest Pain. Hyperlipidemia. --14:03 Venkata Albarado R.N. Hypertension [RuleOut]. --14:03 Venkata Albarado R.N. ADDITIONAL SURGERIES: Abdominal Aortic Aneurysm Repair. Appendectomy. Back Surgery. Cholecystectomy. Endoscopy. Prostatectomy. Renal stents. SMA stent. --14:03 Venkata Albarado R.N. Interventions ID band on patient. To treatment room. --14:04 Venkata Albarado R.N. PHYSICAL ASSESSMENT 14:10 12/24/16. To room via wheelchair. Patient gowned. GENERAL / NEURO / PSYCH: The patient is awake and alert, is oriented and cooperative and appears uncomfortable. He has good eye contact. RESPIRATORY: Respirations not labored. CVS: Cardiac rhythm: atrial fibrillation. SKIN: Skin is warm and dry. --14:10 Jill Virk R.N. NURSING PROGRESS NOTES 14:12/24/2016 Site #1 started via IV in the right antecubital space with an 20g angiocath, with aseptic technique and good blood return; one attempt. Saline lock flushed with 10 mL saline. --14:20 Jill Virk R.N. 14:10 12/24/2016 Site #2 started via IV in the left antecubital space with an 20g angiocath, with aseptic technique and good blood return; one attempt. Blood drawn: rainbow set. Labeled in the presence of the patient and sent to the lab (Blood Banded). --14:21 Jill Virk R.N. 14:10 12/24/16. Oxygen administered by nasal cannula at 2 liters. playground monitor, pulse oximeter and NIBP monitor placed on patient. Patient gowned. Head of bed elevated. Call light placed in reach. Side rails up x 2. Bed placed in lowest position. Brakes of bed on. --14:10 Jill Virk R.N. 14:16 12/24/16. Reassessment after oxygen administered. He is calm. Overall patient status is the same- he states feels the same. GENERAL / NEURO / PSYCH: Patient is calm and cooperative. Alert. RESPIRATORY: No respiratory distress. CVS: Cardiac rhythm: occasional ectopic beats (irregular). SKIN: Skin is dry. --14:16 Jill Virk R.N. 14:10 12/24/16. BP: 92/59. HR: 100. RR: 21. --14:16 Jill Virk R.N. 14:17 12/24/2016 Started bag #1 1000 mL IV Fluids IV NS (Saline); at 250 mL/hr over 4 hour(s) via site #2 via IV pump. --14:22 Jill Virk R.N. 14:48 12/24/16. The patient is resting quietly. Overall patient status is the same- he states feels the same. GENERAL / NEURO / PSYCH: Patient is calm and cooperative. RESPIRATORY: No respiratory distress. CVS: Cardiac rhythm: (irregular). SKIN: Skin is warm and dry. --14:48 Jill Virk R.N. 14:30 12/24/16. BP: 89/53. HR: 89. RR: 18. O2 saturation: 100% on nasal cannula at 2 liters/minute. --14:48 Jill Vrik R.N. EKG time: (5249). EKG was performed by a tech and shown to the ED physician. --14:51 Dipesh Alvarado 15:11 12/24/16. The patient is resting quietly. Overall patient status is the same- he states feels the same. GENERAL / NEURO / PSYCH: Alert. RESPIRATORY: No respiratory distress. CVS: Cardiac rhythm: (irregular). SKIN: Skin is warm and dry. --15:11 Jill Virk R.N. 15:09 12/24/16. BP: 93/58. HR: 92. RR: 18. O2 saturation: 99% on nasal cannula at 2 liters/minute. --15:11 Jill Virk R.N. 15:58 12/24/16. BP: 86/54. HR: 88 (irregular). RR: 21. O2 saturation: 99% on nasal cannula at 2 liters/minute. --15:59 Venkata Albarado R.N. 16:30 12/24/16. Patient ID band checked for patient name, birthdate and medical record number. Catheterized urine collected with return of darell-colored clear urine; odor is normal; sample sent to lab for urinalysis and culture. Specimen labeled in the presence of the patient. --16:43 Venkata Albarado R.N. ( H/P forms on chart.). --16:45 Karley Rosas ER Tech1 ( Overview faxed to CCU). --17:18 Karley Rosas ER Tech1 17:15 12/24/2016 Started 2 gm of Ceftriaxone IVPB in bag #1 50 mL; at 100 mL/hr over 30 minute(s) via site #2 via IV pump. Allergies verified and confirmed 5 rights. IV patency established. IV site checked: no pain, redness, or swelling. IV flushed thoroughly pre- and post-medication administration. --19:07 Venkata Albarado R.N. 17:45 12/24/2016 Ceftriaxone IVPB Discontinued: bag #1 infused. Total amount infused: 50 mL. IV patency established. IV site checked: no pain, redness, or swelling. IV flushed thoroughly. (Ceftriaxone 2 Gms IVPB). --19:08 Venkata Albarado R.N. 18:00 12/24/2016 Azithromycin * IVPB 500 --19:11 Venkata Albarado R.N. 18:00 12/24/2016 Site #[address] upon admission; patent, no pain and no signs of infection or infiltration. Flushed with 10 mL saline; flushes easily. --19:18 Venkata Albarado R.N. 18:00 12/24/2016 Site #[address] upon admission; no pain and no signs of infection or infiltration. No blood return present. Flushed with 10 mL saline; flushes easily. --19:18 Venkata Albarado R.N. 18:00 12/24/2016 IV Fluids IV NS Discontinued: bag #1 infused upon admission. Total amount infused: 1000 mL. IV patency established. IV site checked: no pain, redness, or swelling. IV flushed thoroughly. --19:17 Venkata Albarado R.N. 18:05 12/24/2016 Azithromycin IVPB Discontinued: bag #1 upon admission. Total amount infused: 250mL mL. IV patency established. IV site checked: no pain, redness, or swelling. IV flushed thoroughly. (Sent with pt on admit to ICU). --19:13 Venkata Albarado R.N. <<STRICKEN ENTRY-- 19:15 12/24/2016 IV Fluids IV NS Discontinued: bag #1 infused upon admission. IV patency established. IV site checked: no pain, redness, or swelling. IV flushed thoroughly. --19:16 Venkata Albarado R.N. --END STRIKE>> Correction. --19:17 Venkata Albarado R.N. DISPOSITION / DISCHARGE 17:47 12/24/16. BP: 93/63. HR: 87 (irregular and normal rate). RR: 20. O2 saturation: 98% on nasal cannula at 2 liters/minute. Pain level now: 5/10. Additional comments: Back and Legs. --17:51 Venkata Albarado R.N. 17:54 12/24/16. Temp: 98.2 F (oral). --17:54 Venkata Albarado R.N. Departure time: 18:00 Dec 24 2016. Condition at departure: improved. Admitted to the Critical Care Unit. Transported via by transport team with monitor, IV and O2. Report was given to a nurse via a phone call. Report included patient's care, treatment, medications, reviewed medication reconcilliation, and condition (including any recent changes or anticipated changes). All questions were answered. Report was acknowledged and care was transferred. (LINDY Dhillon). Patient's personal items; items were placed in belongings bag, given to the patient and transported with the patient. Collection of belongings was witnessed by 1 nurse. --18:01 Venkata Albarado R.N. Locked/Released at 12/24/2016 19:23 by Venkata Albarado R.N.
--- NOTE | 2016-12-24 16:37 | ED ORDER SUMMARY ---
..... Patient: KOTA ROCHE OrderSheet [facility] VisitID: [id number] [address] [place] [address] 81y, M Registration Date/Time: 12/24/2016 ORDER SHEET Weight: 58.5 kg Allergies: Morphine Sulfate, Sulfa Drugs GENERAL ORDERS: Brand Engineer (Continuous) (13:52 12/24/2016 Caden R.N. verbal order read back to Marcial LUNDBERG) (13:53 Ceferinoelli R.N.) EKG - ER Stat (13:52 12/24/2016 Caden R.N. verbal order read back to Marcial LUNDBERG) (Ack 13:56 LNations ER Tech1) (14:01 LNations ER Tech1) Oxygen (2 L/min) (NC) (13:52 12/24/2016 Caden R.N. verbal order read back to Marcial LUNDBERG) (13:53 Ceferinoelli R.N.) Pulse oximeter (13:52 12/24/2016 Caden R.N. verbal order read back to Marcial LUNDBERG) (Ack 13:56 LNations ER Tech1) (14:01 LNations ER Tech1) Chest 1V Urgent (15:15 12/24/2016 Marcial LUNDBERG) (Ack 15:18 LNations ER Tech1) (15:34 LNations ER Tech1) CBC w Diff Urgent (15:15 12/24/2016 Marcial LUNDBERG) (Ack 15:18 LNations ER Tech1) (15:59 JRomanelli R.N.) CMP Urgent (15:15 12/24/2016 Marcial LUNDBERG) (Ack 15:18 LNations ER Tech1) (15:59 omanelli R.N.) UA-Culture if indicated Urgent (15:15 12/24/2016 Marcial LUNDEBRG) (Ack 15:18 LNations ER Tech1) (16:42 JRomanelli R.N.) Amylase Urgent (15:15 12/24/2016 Marcial LUNDBERG) (Ack 15:18 LNations ER Tech1) (15:59 omanelli R.N.) Lipase Urgent (15:15 12/24/2016 Marcial LUNDBERG) (Ack 15:18 LNations ER Tech1) (15:59 JRomanelli R.N.) CPK Urgent (15:15 12/24/2016 Marcial LUNDBERG) (Ack 15:18 LNations ER Tech1) (15:59 JRomanelli R.N.) Troponin-I Urgent (15:15 12/24/2016 Marcial LUNDBERG) (Ack 15:18 LNations ER Tech1) (15:59 JRomanelli R.N.) BNP Urgent (15:15 12/24/2016 Marcial LUNDBERG) (Ack 15:18 LNations ER Tech1) (16:00 JRomanelli R.N.) Lactate, Serum Urgent (16:19 12/24/2016 Marcial LUNDBERG) (Ack 16:54 LNations ER Tech1) (19:17 JRomanelli R.N.) Blood Culture (No) (N/A) Urgent (16:20 12/24/2016 Marcial LUNDBERG) (Ack 16:54 LNations ER Tech1) (19:17 JRomanelli R.N.) PCT (Procalcitonin) Urgent (16:20 12/24/2016 Marcial LUNDBERG) (Ack 16:54 LNations ER Tech1) (19:17 JRomanelli R.N.) MEDICATION ORDERS: IV FLUIDS: IV NS : initial bolus none -, then 250 mL/hr (NOW) (13:51 12/24/2016 Caden R.N. verbal order read back to Marcial LUNDBERG) (14:22 Kathe R.N.) IV Saline Lock (13:52 12/24/2016 Caden R.N. verbal order read back to Marcial LUNDBERG) (14:20 Kathe R.N.) Ceftriaxone IV 2 gm/50mL (NOW) (17:14 12/24/2016 JRomanelli R.N. verbal order read back to Marcial LUNDBERG) (19:07 JRomanelli R.N.) Azithromycin IV 500 mg/250 mL (NOW) (17:15 12/24/2016 JRomanelli R.N. verbal order read back to Marcial LUNDBERG) (19:11 JRomanelli R.N.) ORDER SHEET NOTES: [Electronically signed by Kota Rodriguez MD (18:57 12/24/2016)] [Electronically signed by Venkata Albarado R.N. (:12/24/2016)] [Electronically locked/signed by Venkata Albarado R.N. (12/24/2016)]
--- NOTE | 2016-12-24 16:37 | ED ORDER SUMMARY ---
..... Patient: KOTA ROCHE OrderSheet [facility] VisitID: [id number] [address] [place] [address] 81y, M Registration Date/Time: 12/24/2016 ORDER SHEET Weight: 58.5 kg Allergies: Morphine Sulfate, Sulfa Drugs GENERAL ORDERS: Commercial Floor Covering Installer (Continuous) (13:52 12/24/2016 Caden R.N. verbal order read back to Marcial LUNDBERG) (13:53 Ceferinoelli R.N.) EKG - ER Stat (13:52 12/24/2016 Caden R.N. verbal order read back to Marcial LUNDBERG) (Ack 13:56 LNations ER Tech1) (14:01 LNations ER Tech1) Oxygen (2 L/min) (NC) (13:52 12/24/2016 Caden R.N. verbal order read back to Marcial LUNDBERG) (13:53 Ceferinoelli R.N.) Pulse oximeter (13:52 12/24/2016 Caden R.N. verbal order read back to Marcial LUNDBERG) (Ack 13:56 LNations ER Tech1) (14:01 LNations ER Tech1) Chest 1V Urgent (15:15 12/24/2016 Marcial LUNDBERG) (Ack 15:18 LNations ER Tech1) (15:34 LNations ER Tech1) CBC w Diff Urgent (15:15 12/24/2016 Marcial LUNDBERG) (Ack 15:18 LNations ER Tech1) (15:59 JRomanelli R.N.) CMP Urgent (15:15 12/24/2016 Marcial LUNDBERG) (Ack 15:18 LNations ER Tech1) (15:59 omanelli R.N.) UA-Culture if indicated Urgent (15:15 12/24/2016 Marcial LUNDBERG) (Ack 15:18 LNations ER Tech1) (16:42 JRomanelli R.N.) Amylase Urgent (15:15 12/24/2016 Marcial LUNDBERG) (Ack 15:18 LNations ER Tech1) (15:59 omanelli R.N.) Lipase Urgent (15:15 12/24/2016 Marcial LUNDBERG) (Ack 15:18 LNations ER Tech1) (15:59 JRomanelli R.N.) CPK Urgent (15:15 12/24/2016 Marcial LUNDBERG) (Ack 15:18 LNations ER Tech1) (15:59 JRomanelli R.N.) Troponin-I Urgent (15:15 12/24/2016 Marcial LUNDBERG) (Ack 15:18 LNations ER Tech1) (15:59 JRomanelli R.N.) BNP Urgent (15:15 12/24/2016 Marcial LUNDBERG) (Ack 15:18 LNations ER Tech1) (16:00 JRomanelli R.N.) Lactate, Serum Urgent (16:19 12/24/2016 Marcial LUNDBERG) (Ack 16:54 LNations ER Tech1) (19:17 JRomanelli R.N.) Blood Culture (No) (N/A) Urgent (16:20 12/24/2016 Marcial LUNDBERG) (Ack 16:54 LNations ER Tech1) (19:17 JRomanelli R.N.) PCT (Procalcitonin) Urgent (16:20 12/24/2016 Marcial LUNDBERG) (Ack 16:54 LNations ER Tech1) (19:17 JRomanelli R.N.) MEDICATION ORDERS: IV FLUIDS: IV NS : initial bolus none -, then 250 mL/hr (NOW) (13:51 12/24/2016 Caden R.N. verbal order read back to Marcial LUNDBERG) (14:22 Kathe R.N.) IV Saline Lock (13:52 12/24/2016 Caden R.N. verbal order read back to Marcial LUNDBERG) (14:20 Kathe R.N.) Ceftriaxone IV 2 gm/50mL (NOW) (17:14 12/24/2016 JRomanelli R.N. verbal order read back to Marcial LUNDBERG) (19:07 JRomanelli R.N.) Azithromycin IV 500 mg/250 mL (NOW) (17:15 12/24/2016 JRomanelli R.N. verbal order read back to Marcial LUNDBERG) (19:11 JRomanelli R.N.) ORDER SHEET NOTES: [Electronically signed by Kota Rodriguez MD (18:57 12/24/2016)] [Electronically signed by Venkata Albarado R.N. (:12/24/2016)] [Electronically locked/signed by Venkata Albarado R.N. (12/24/2016)]
--- NOTE | 2016-12-24 17:54 | History & Physical Report ---
Admission Admit Date 12/24/16 Information Source Information Source: Self, Child Reliability: Good History Chief Complaint diarrhea and low blood pressure History of Present Illness Pt is a 81 year old male with a pmh as outlined below that is presenting with a approximately one week history of diarrhea and generalized weakness. Patients son claims that for the past 6 days the patient has been having soft stools amixed with occasional bouts of diarrhea. Patients son has been attempting to coax the patient into eating and drinking more however the patient has been reluctant to eat. Patients son noticed that he was becoming progessively more lethargic which would cause a vicious sycle of not eating and becoming more lethargic. Patient today was seen by his visiting nurse and seen to be lethargic. When prompted to do vital signs the patient was seen to be hypotensive and tachycardic. At this time the visiting nurse decided to call ems. Patient History 1. Pneumonia 2. Aortic aneurysm 3. COPD (chronic obstructive pulmonary disease) 4. Hypotension 5. Diarrhea Social History - pt is an active smoker and has no plans on quiting anytime pt does not drink or use illicit substances Pt currently is retired lives at his sons house Family History Family history was reviewed; no changes noted. Medications and Allergies Medications Current Medications Sig/Dena Start time Last Medication Dose Route Stop Time Status Admin Alprazolam 0.25 MG DAILY 12/25 899 UNV PO Aspirin 81 MG DAILY 12/25 899 UNV PO Digoxin 125 MCG DAILY 12/25 899 UNV PO Diltiazem HCl 240 MG DAILY 12/25 899 UNV PO Metoprolol Succinate 25 MG DAILY 12/25 899 UNV PO Sertraline HCl 50 MG DAILY 12/25 899 UNV PO Pantoprazole Sodium 40 MG DAILY@12/25 UNV Sesquihydrate PO Ferrous Sulfate 325 MG BID 12/24 2100 UNV PO Gabapentin 300 MG BID 12/24 2100 UNV PO Azithromycin 500 MG DAILY 12/24 1716 AC Sodium Chloride 250 ML IV Ceftriaxone Sodium/ 50 ML DAILY 12/24 171 UNVr Dextrose IV Sodium Chloride 1,000 ML ASDIRECTED 12/24 171 UNV IV Trazodone HCl 25 MG Q6H 12/24 171 UNV PO Pt will be placed on ceftriaxone and azithromycin as well Allergies Coded Allergies: Sulfa Drugs (Intermediate, HIVES 03/20/16) Morphine (Intermediate, ITCHY & CRAZY 03/20/16) Review of Systems Constitutional Weakness, Malaise. Denies: Fever, Chills, Sweats, Other. Eyes Denies: Pain, Vision Change, Conjunctival Inflammation, Eyelid Inflammation, Redness, Other. ENT Denies: Ear Pain, Ear Discharge, Nose Pain, Nasal Discharge, Nasal Congestion, Mouth Pain, Mouth Swelling, Throat Pain, Throat Swelling, Other. Respiratory Pleuritic Pain. Denies: Cough, Dry, SOB w/exertion, Wheezing, Hemoptysis, Sputum, Other. Cardiovascular Denies: Chest Pain, Palpitations, Orthopnea, PND, Edema, Light-headedness, Other. Gastrointestinal Nausea, Diarrhea. Denies: Vomiting, Abdominal Pain, Constipation, Melena, Hematochezia, Other. Genitourinary Denies: Dysuria, Frequency, Incontinence, Hematuria, Retention, Other. Musculoskeletal Denies: Neck Pain, Shoulder Pain, Arm Pain, Back Pain, Hand Pain, Leg Pain, Foot Pain, Other. Skin Denies: Rash, Lesions, Jaundice, Bruising, Other. Neurological Denies: Weakness, Numbness, Incoordination, Change in speech, Confusion, Seizures, Other. Physical Exam General Appearance Alert, Cooperative, No acute distress HEENT Atraumatic, PERRLA, Moist mucous membranes Lungs Normal exam, Clear to auscultation, Normal air movement Neck Supple, No JVD, 2+ carotid pulse wo bruit Cardiovascular Regular rate and rhythm, Normal S1 and S2, No murmurs, gallops, rubs Abdomen Soft, No tenderness, No guarding, No rebound Extremities No cyanosis, No edema, Normal pulses, Strength = upper ext's, Strength = lower ext's Skin No Rashes Neurological Normal gait, Normal speech, Sensation intact, Reflexes 2+ and equal Psych/Mental Status Mental status normal LAB Results Laboratory Tests 12/24 12/24 12/24 12/24 1400 1400 1400 1630 Chemistry Plasma Sodium (136 - 145 mmol/L) 141 Plasma Potassium (3.5 - 5.1 mmol/L) 3.4 Plasma Chloride (98 - 107 mmol/L) 103 CO2 (Enzymatic) (21 - 32 mmol/L) 24 BUN (7 - 18 mg/dL) 31 Creatinine (0.6 - 1.3 mg/dL) 3.1 Est GFR ( Amer) (mL/min) 25.16 Est GFR (Non-Af Amer) (mL/min) 20.76 Glucose (70 - 110 mg/dL) 146 Plasma Calcium (8.5 - 10.1 mg/dL) 8.4 Total Bilirubin (0.0 - 1.0 mg/dL) 0.9 AST (15 - 37 U/L) 13 ALT (12 - 78 U/L) 10 Alkaline Phosphatase (46 - 116 U/L) 104 Creatine Kinase (24 - 260 U/L) 24 Troponin (0.00 - 1.5 ng/mL) 0.07 B-Natriuretic Peptide (5 - 100 pg/ml) 158 Total Protein (6.4 - 8.2 g/dL) 6.5 Albumin (3.3 - 5.0 g/dL) 2.6 Amylase (25 - 115 U/L) 19 Lipase (73 - 393 U/L) 48 Procalcitonin (0 - 0.5 ng/mL) <0.5 Hematology WBC (4.5 - 11.5 K/uL) 20.4 RBC (4.50 - 5.90 M/uL) 3.44 Hgb (13.5 - 17.5 gm/dL) 10.3 Hct (41.0 - 53.0 %) 31.3 MCV (80 - 100 fL) 91 MCH (26 - 34 pg) 30 RDW (11.6 - 14.8 %) 17.2 Neut % (Auto) (50 - 75 %) 70 Lymph % (Auto) (25 - 40 %) 11 Elliott % (Auto) (3 - 14 %) 11 Eos % (Auto) (0 - 4 %) 0 Baso % (Auto) (0 - 2 %) 0 Band Neutrophils % (0 - 8 %) 8 Metamyelocytes % (0 - 1 %) 0 Myelocytes (0 - 1 %) 0 Other Cell Type 0 Plt Count, EDTA (150 - 400 K/uL) 263 Anisocytosis (manual) 1+ PUBS MCHC (31 - 37 g/dL) 33 Urines Urine Color YELLOW Urine Appearance CLEAR Urine pH (5.0 - 8.0) 6.0 Ur Specific [place] (1.010 - 1.030) 1.020 Urine Protein (NEGATIVE) 1+ Urine Ketones (NEGATIVE) NEGATIVE Urine Blood (NEGATIVE) NEGATIVE Urine Nitrite (NEGATIVE) NEGATIVE Urine Bilirubin (NEGATIVE) NEGATIVE Urine Urobilinogen (0.2 - 1.0 EU/dL) 0.2 Ur Leukocyte Esterase (NEGATIVE) NEGATIVE Urine RBC (0 - 1 rbc/hpf) 0-1 Urine WBC (0 - 1 wbc/hpf) 0-1 Ur Epithelial Cells (0 - 5 EPI/hpf) 0-1 Urine Bacteria (NONE SEEN) NONE SEEN Urine Glucose (NEGATIVE) NEGATIVE Urine Comment CULT NOT INDICATED 12/24 1699 Chemistry Lactic Acid Pending Microbiology Date/Time Procedure - Status Source Growth 12/24 1699 Blood Culture - RECD BLOOD 12/24 1699 Blood Culture - RECD BLOOD Assessment and Plan Problem List 1. Pneumonia Plan - pt has an incidental finding of pneumonia on xray after a week long bout of diarrhea - pt has a wbc of 20 and resulting left shift - pt not coughing or producing sputum - will treat with ceftriaxone and azithromycin - will continue to trend bp - will monitor in icu 2. Diarrhea Status Chronic Onset Date Unknown Plan - pt has been having diarrhea for the better part of 5 days - will continue to monitor output - will start feeding patient and aggressively rehydrate 3. CKD (chronic kidney disease) stage 3, GFR 30-59 ml/min Status Chronic Onset Date Unknown Plan - Pt found to have worsening kidney function - pts creatinine has gone from 2-->3.1 - most likely secondary to dehydration given poor po intake and diarrhea - will aggressively hydrate as much as possible - if renal function does not improve will obtain urine lytes 4. COPD (chronic obstructive pulmonary disease) Plan - chronic - no exacerbation noted - will c/w home meds 5. Hypotension Plan - Pt seen to be hypotensive on arrival - secondary to dehydration, diarrhea, and infectious process - patient has responded to 750 ml of IV fluids while in the ER - will continue to monitor - will hydrate as much as possible given chf history - will trend bmp 6. Systolic and diastolic CHF, chronic Plan - chronic issue - will c/w home meds, will hold anti hypertensives until bp normalizes 7. Hypertension Plan - chronic established - will hold anti hypertensives for the time being
--- NOTE | 2016-12-24 18:45 | NUR ---
Patient admitted to room 301 from ER with Weakness, dizziness, and pneumonia. Patient CCU status. Patient transfered via stretcher accompanied by DINING CAR STEWARD. Patient moved from stretcher to bed via slide sheet. Son at bedside. Patient placed on Tele. Patient has HX of A-fib. Denies pain at this time. IV LAC patent and RAC saline locked. 3 open pressure ulcers on coccyx. Picture taken and will be placed in chart by NOC shift nurse. Mepilex placed on coccyx. Son states " he had a nursing coming out to check on his pressure wounds but is now going to be going over to wound care center to help with healing". Patient has a wound care appointment this 12/27/16 per son. Pleasant and cooperative with care. Will continue to monitor.
--- NOTE | 2016-12-24 19:23 | ED DISCHARGE INSTRUCTIONS ---
Patient: KOTA ROCHE General Instructions [facility] VisitID: [id number] [address] [place] [address] 81y, M Registration Date/Time: 12/24/2016 Hypotension. Pneumonia. Renal insufficiency. (Electronically signed by Kota Rodriguez MD 12/24/2016 18:57)
--- NOTE | 2016-12-24 19:23 | ED DISCHARGE INSTRUCTIONS ---
Patient: KOTA ROCHE General Instructions [facility] VisitID: [id number] [address] [place] [address] 81y, M Registration Date/Time: 12/24/2016 Hypotension. Pneumonia. Renal insufficiency. (Electronically signed by Kota Rodriguez MD 12/24/2016 18:57)
--- NOTE | 2016-12-24 19:24 | ED MAR SUMMARY ---
..... Medication Administration Record [facility] [address] [place] [address] Patient: KOTA ROCHE Visit ID: [id number] 81y, M Weight: 58.5 kg Height/Length: 108 in BMI: 7.8 ALLERGIES: Morphine Sulfate, Sulfa Drugs Start 14:17 12/24/2016 Jill Virk R.N., Stop 18:00 12/24/2016 Venkata Albarado R.N. Medication Administered: IV NS (SALINE), Dose: IV Fluids over 4 hour(s), Rate: 250 mL/hr, Dispensed: 1000 mL bag, Site: #2 left AC. Medication Ordered: IV NS : initial bolus none -, then 250 mL/hr (NOW). Start 17:15 12/24/2016 Venkata Albarado R.N., Stop 17:45 12/24/2016 Venkata Albarado R.N. Medication Administered: CEFTRIAXONE [IVPB], Dose: 2 gm IVPB over 30 minute(s), Rate: 100 mL/hr, Dispensed: 50 mL bag, Site: #2 left AC. Medication Ordered: Ceftriaxone IV 2 gm/50mL (NOW). Start 18:00 12/24/2016 Venkata Albarado R.N., Stop 18:05 12/24/2016 Venkata Albarado R.N. Medication Administered: Azithromycin *, Dose: 500 * IVPB. Medication Ordered: Azithromycin IV 500 mg/250 mL (NOW).
--- NOTE | 2016-12-24 19:24 | ED MED RECONCILIATION SUMMARY ---
Patient: KOTA ROCHE Medication Reconciliation Report [facility] VisitID: [id number] [address] [place] [address] 81y, M Registration Date/Time: 12/24/2016 Weight: 58.5 kg Height/Length: 108 in. BMI: 7.8 ALLERGIES: Morphine Sulfate, Sulfa Drugs The patient's Home Medications are listed below: THE FOLLOWING MEDICATIONS NEED TO BE RECONCILED: ALPRAZolam Oral (0.25 mg) 1 tablet, max 2 tab in 24 hours ASA 81 mg, daily Digoxin Oral 0.125 mg, daily Diltiazem HCl Oral 240 mg, daily Gabapentin Oral 300 mg, 3-4 times a day Iron Oral Metoclopramide HCl Oral 5 mg, 3x a day, before meals Metoprolol Succinate ER Oral (25 mg) 1 tablet, daily Nitrostat Sublingual 0.4 mg Ondansetron Oral 4 mg Oxygen home at 2.5l/min Ranitidine HCl Oral (150 mg) 1 capsule, 2x a day Tramodol 50mg mg q 4-6 hrs prn Zolpidem Tartrate Oral 5 mg, daily The source(s) of the original Home Medication information: Not obtained. The following Medications were given to the patient in the Emergency Department: IV NS IV Fluids bolus 0, then 250 mL/hr, administered: 12/24/2016 2:17:00 PM Ceftriaxone [IVPB] IVPB bolus 0, then 2 gm 100 mL/hr, administered: 12/24/2016 5:15:00 PM Azithromycin IVPB bolus 0, then 500, administered: 12/24/2016 6:00:00 PM The following Medications were prescribed to the patient: None.
--- NOTE | 2016-12-24 19:24 | ED MED RECONCILIATION SUMMARY ---
Patient: KOTA ROCHE Medication Reconciliation Report [facility] VisitID: [id number] [address] [place] [address] 81y, M Registration Date/Time: 12/24/2016 Weight: 58.5 kg Height/Length: 108 in. BMI: 7.8 ALLERGIES: Morphine Sulfate, Sulfa Drugs The patient's Home Medications are listed below: THE FOLLOWING MEDICATIONS NEED TO BE RECONCILED: ALPRAZolam Oral (0.25 mg) 1 tablet, max 2 tab in 24 hours ASA 81 mg, daily Digoxin Oral 0.125 mg, daily Diltiazem HCl Oral 240 mg, daily Gabapentin Oral 300 mg, 3-4 times a day Iron Oral Metoclopramide HCl Oral 5 mg, 3x a day, before meals Metoprolol Succinate ER Oral (25 mg) 1 tablet, daily Nitrostat Sublingual 0.4 mg Ondansetron Oral 4 mg Oxygen home at 2.5l/min Ranitidine HCl Oral (150 mg) 1 capsule, 2x a day Tramodol 50mg mg q 4-6 hrs prn Zolpidem Tartrate Oral 5 mg, daily The source(s) of the original Home Medication information: Not obtained. The following Medications were given to the patient in the Emergency Department: IV NS IV Fluids bolus 0, then 250 mL/hr, administered: 12/24/2016 2:17:00 PM Ceftriaxone [IVPB] IVPB bolus 0, then 2 gm 100 mL/hr, administered: 12/24/2016 5:15:00 PM Azithromycin IVPB bolus 0, then 500, administered: 12/24/2016 6:00:00 PM The following Medications were prescribed to the patient: None.
--- NOTE | 2016-12-24 19:24 | ED MAR SUMMARY ---
..... Medication Administration Record [facility] [address] [place] [address] Patient: KOTA ROCHE Visit ID: [id number] 81y, M Weight: 58.5 kg Height/Length: 108 in BMI: 7.8 ALLERGIES: Morphine Sulfate, Sulfa Drugs Start 14:17 12/24/2016 Jill Virk R.N., Stop 18:00 12/24/2016 Venkata Albarado R.N. Medication Administered: IV NS (SALINE), Dose: IV Fluids over 4 hour(s), Rate: 250 mL/hr, Dispensed: 1000 mL bag, Site: #2 left AC. Medication Ordered: IV NS : initial bolus none -, then 250 mL/hr (NOW). Start 17:15 12/24/2016 Venkata Albarado R.N., Stop 17:45 12/24/2016 Venkata Albarado R.N. Medication Administered: CEFTRIAXONE [IVPB], Dose: 2 gm IVPB over 30 minute(s), Rate: 100 mL/hr, Dispensed: 50 mL bag, Site: #2 left AC. Medication Ordered: Ceftriaxone IV 2 gm/50mL (NOW). Start 18:00 12/24/2016 Venkata Albarado R.N., Stop 18:05 12/24/2016 Venkata Albarado R.N. Medication Administered: Azithromycin *, Dose: 500 * IVPB. Medication Ordered: Azithromycin IV 500 mg/250 mL (NOW).
--- NOTE | 2016-12-24 19:41 | NUR ---
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 RN ENTERED ROOM TO ASSESS PATIENT. PT ALERT AND ORIENTED, COOPERATIVE WITH CARE. BP RECHECKED 78/62, BP CUFF CHANGED RIGHT ARM. BP WAS 79/55, HR 88, O2 SAT 100% ON 2 LPM. MD CALLED @ 1938 AND INFORMED OF PATIENTS LOW BP. MD ORDERED 200 ML NS BOLUS NOW. ORDER READ BACK, AND WRITTEN IN CHART, WILL ADMINISTER WHEN AVAILABLE.
--- NOTE | 2016-12-24 22:01 | NUR ---
DR. PEREZ PRESENT ON UNIT. MD INFORMED OF PATIENTS BP AFTER THE BOLUS OF 93/62, HR 86, O2 SAT 98% ON ROOM AIR. RN AND MD DISCUSSED PATIENT'S VITALS, URINE OUTPUT, LABS, AND CURRENT MEDICATIONS. MD ORDERED 1 GM VANCO TONIGHT, AND FOR PHARMACY TO DOSE IN AM, PRN APODACA ORDER FOR URINE RETENTION, AND TO NOTIFY MD IF PT BECOMES SYMPTOMATIC WITH HYPOTENSION, AND TO INCREASE IV FLUIDS TO 150 ML/HR. MD INFORMED OF CURRENT BP OF 84/59, DUE TO PT HX, AND LABS MD WANTS TO INCREASE FLUIDS TO SLOWLY HYDRATE PATIENT. ORDERS READ BACK, ORDERS WRITTEN IN CHART, FAXED TO PHARMACY. KENYETTA
[2016-12-25] VITALS (25 sets, daily range): BP systolic 79–110; BP diastolic 50–88
--- NOTE | 2016-12-25 01:15 | NUR ---
PT HAS HAD NO URINE OUTPUT SINCE COMING TO UNIT. URINAL OFFERED MULTIPLE TIMES. RN ASSIST PATIENT TO USE URINAL, PT WAS ABLE TO VOID 10 ML. BLADDER SCAN COMPLETED, 82 ML NOTED. ENCOURAGED PT TO DRINK FLUIDS. BP 97/58, HR 80, 100% ON 2 LPM O2. WCTM
--- NOTE | 2016-12-25 07:57 | NUR ---
Pharmacy to dose Vancomycin (assume PNA). SCr elevated over baseline, weight decreased substantially. Beginning at 1 gm IV q24hrs, next dose 2200 this pm; will follow SCr, hydration status and order trough as appropriate with dosing changes. bob
--- NOTE | 2016-12-25 10:47 | NUR ---
NUTRITION ASSESSMENT: S: Pt admitted with dx/o hypotension, pneumonia, diarrhea. Pt with PMH of abdominal aortic aneurysm, chronic anemia, chronic renal insuff, anxiety, smoking wiht no plans to quit per H&P. 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 Anti nausea rx in place, pt holding emesis bag, states nauseasted. Ate ~75% breakfast this am. O: Diet Rx: Low sodium, Mech Soft, Thin NKFA
--- NOTE | 2016-12-25 12:25 | NUR ---
NUTRITION ADDENDUM: Spoke with MD regarding my concerns about pts nutrition and wt loss. Consider nutrition support to help prevent further wt loss and promote some wt gain. RD to continue to communicate with multidiciplinary team and follow closely.
--- NOTE | 2016-12-25 18:30 | NUR ---
PT HAS BEEN UNABLE TO KEEP ANY FOOD OR DRINK DOWN TODAY. DENIES NAUSEA, BUT HAS EMESIS WITHIN A FEW MINUTES OF EATING OR DRINKING. BP IMPROVED. UOP REMAINS LOW, BUT IS ALSO IMPROVING. BLADDER SCAN DONE FOR 192 ML, BUT PT WAS UNABLE TO VOID AT THAT TIME. WILL CONTINUE TO MONITOR BLADDER SCAN AND CONSIDER APODACA PLACEMENT IF PT CONTINUES TO BE UNABLE TO VOID. MEDICATED WITH PO TRAMADOL FOR PAIN WITH SOME RELIEF. ORDER REC'D FOR IV TORADOL X1. WCTM.
--- NOTE | 2016-12-25 19:45 | Progress Note ---
Subjective General Pt seen and examined this morning. Patient is improving, his blood pressure and mentation are improving significantly. However patient is having persistent vomiting with ingestion of any food. Constitutional Denies: Fever, Chills, Sweats, Weakness, Malaise, Other. Eyes Denies: Pain, Vision Change, Conjunctival Inflammation, Eyelid Inflammation, Redness, Other. Respiratory Denies: Cough, Dry, SOB w/exertion, Wheezing, Hemoptysis, Pleuritic Pain, Sputum , Other. Cardiovascular Denies: Chest Pain, Palpitations, Orthopnea, PND, Edema, Light-headedness, Other. Gastrointestinal Vomiting. Denies: Nausea, Abdominal Pain, Diarrhea, Constipation, Melena, Hematochezia, Other. Genitourinary Denies: Dysuria, Frequency, Incontinence, Hematuria, Retention, Other. Physical Exam Vital Signs / I&Os Vital Signs Date Time Temp Pulse Resp B/P Pulse O2 O2 Flow FiO2 Ox Delivery Rate 12/25 1921 96 18 103/55 99 Nasal 2.0 Cannula 12/25 1810 97.9 108 21 101/64 100 Nasal 2.0 Cannula / 1716 90 21 87/63 100 Nasal 2.0 Cannula / 1611 82 16 91/62 100 Nasal 2.0 Cannula 02/07 1509 96 16 101/64 100 Nasal 2.0 Cannula 02/07 1402 97.5 81 18 95/57 100 Nasal 2.0 Cannula 02/ 1327 81 02/07 1327 72 18 96/65 100 Nasal 2.0 Cannula 02/07 1200 71 18 90/54 100 Nasal 2.0 Cannula 02/07 1129 97.5 77 18 97/56 100 Nasal 2.0 Cannula 02/07 1000 81 18 86/59 100 Nasal 2.0 Cannula 02/07 0900 Nasal 2.0 Cannula 02/07 0900 91 18 85/51 94 Nasal 2.0 Cannula 02/07 0800 93 18 102/57 94 Nasal 2.0 Cannula 02/07 0700 98.1 83 18 87/54 99 Nasal 2.0 Cannula 02/07 0600 98.1 87 18 88/51 99 Nasal 2.0 Cannula 02/07 0519 2.0 02/07 0505 77 18 87/50 99 Nasal 2.0 Cannula 02/07 0433 88 22 101/51 100 Nasal 2.0 Cannula 02/07 0308 86 20 90/56 100 Nasal 2.0 Cannula 12/25 0210 79 14 85/54 100 Nasal 2.0 Cannula 12/25 0100 79/53 12/25 0024 95 21 97/58 98 Nasal 2.0 Cannula 12/24 2309 93 20 96/57 97 Nasal 2.0 Cannula 12/24 2200 98.1 86 19 90/61 98 Nasal 2.0 Cannula 12/24 2100 98.2 78 17 84/59 100 Nasal 2.0 Cannula 12/24 2041 2.0 12/24 2016 89 22 93/62 100 Nasal 2.0 Cannula 12/24 2000 97.7 80 20 77/46 94 Nasal 2.0 Cannula 12/24 1931 Nasal 2.0 Cannula I&O 12/24 0800 12/24 1600 12/25 0000 Intake Total 516 Output Total 0 Balance 516 General Appearance Alert, Oriented X3, No acute distress HEENT Normal exam, PERRLA, Moist mucous membranes Lungs Normal exam, Clear to auscultation, Normal air movement Cardiovascular Regular rate and rhythm, No murmurs, gallops, rubs Abdomen Normal bowel sounds, Soft, No tenderness Extremities No edema, Normal pulses, No tenderness Neurological Normal speech, Sensation intact, Cranial nerves intact Psych/Mental Status Mental status normal LAB Results Laboratory Tests 12/25 035 Chemistry Plasma Sodium (136 - 145 mmol/L) 144 Plasma Potassium (3.5 - 5.1 mmol/L) 3.1 Plasma Chloride (98 - 107 mmol/L) 109 CO2 (Enzymatic) (21 - 32 mmol/L) 23 BUN (7 - 18 mg/dL) 33 Creatinine (0.6 - 1.3 mg/dL) 2.9 Est GFR ( Amer) (mL/min) 27.18 Est GFR (Non-Af Amer) (mL/min) 22.42 Glucose (70 - 110 mg/dL) 85 Plasma Calcium (8.5 - 10.1 mg/dL) 7.3 Plasma Magnesium (1.8 - 2.4 mg/dL) 1.5 Total Bilirubin (0.0 - 1.0 mg/dL) 0.4 AST (15 - 37 U/L) 8 ALT (12 - 78 U/L) 8 Alkaline Phosphatase (46 - 116 U/L) 78 Total Protein (6.4 - 8.2 g/dL) 5.2 Albumin (3.3 - 5.0 g/dL) 2.1 Hematology WBC (4.5 - 11.5 K/uL) 11.1 RBC (4.50 - 5.90 M/uL) 2.83 Hgb (13.5 - 17.5 gm/dL) 8.1 Hct (41.0 - 53.0 %) 25.2 MCV (80 - 100 fL) 89 MCH (26 - 34 pg) 29 RDW (11.6 - 14.8 %) 17.9 Gran % 69.9 Lymph % (Auto) (25 - 40 %) 23.0 Mcculloch % (Auto) (3 - 14 %) 7.1 Plt Count, EDTA (150 - 400 K/uL) 177 PUBS MCHC (31 - 37 g/dL) 32 Microbiology Date/Time Procedure - Status Source Growth 12/24 2319 MRSA Screen - RECD NASAL Assessment and Plan Problem List 1. Pneumonia Plan - currently stable, no evidence of worsening infection - will c/w antibioitics 2. Weak Plan - pts weakness is tied to po intake - will continue with feeding as tolerated - will get pt eval 3. CKD (chronic kidney disease) stage 3, GFR 30-59 ml/min Status Chronic Onset Date Unknown Plan - chronic issue - improving significantly - will continue with IV fluid 4. Nausea and vomiting Status Acute Onset Date Unknown Plan - pt has persistent vomiting without any nausea - pt presenting with vomiting without any nausea - pt is unable to keep any food down without immediately vomiting - will keep pt npo - will start bid ppis - will start q6 h carafate - will have surgery assess pt for scope 5. Diarrhea Plan - resolved 6. Hypotension Plan - improving steadily - will c.w fluid administration - will switch to d5 ns
--- NOTE | 2016-12-25 20:35 | NUR ---
PT RESTINGIN BED. ALERT ADN OREITNED TO NAME, PLACE AND BIRTHDATE - NEEDS REORIENTATION TO DATE AND YEAR. NO COMPLAINTS OF PAIN, NOCHEST PAIN,NO NAUSEA. TELE SHOWS AFIB - HEART RATE AT 74. BLOOD PRESSURE AT 106/67 - NO COMPLAINTS OF DIZZINESS. PT MOVING AROUND IN BED ON REQUESTS. WAFFLE MATTRESS IN PLACE. KCL INFUSING, NORMAL SALINE INFUSING AT 150/HR. NO SOB NOTED. PT IS ON 2 LITERS NC - O2 SATS AT 100%. NO COMPLAINTS OF NAUSEA BUT EMEISIS OF 150ML NOTED - UNDIGESTED FOOD - PT JUST ATE A CINNAMON ROLE. SCDS BILAT. BRUISING NOTED AT IV SITE - IV TO LAC AND RAC NOTED. CALL LIGHT WITHIN REACH. WILL CONTINUE TO MONITOR.
--- NOTE | 2016-12-25 23:29 | NUR ---
SPOKE WITH DR RIGGINS - MADE AWARE THAT PT HAS HAD LOW URINE OUTPUT, PT UNABLE TO VOID AT THIS TIME, BLADDER SCAN OF 259ML. DR AWARE OF FLUIDS INFUSING AT 150/HR. NEW ORDER RECIEVED FOR A POLEY PRN BLADDER SCAN GREATER THAN 500ML. NO OTHER NEW ORDERS AT THIS TIME. WILL CONTINUE TO MONITOR.
[2016-12-26] VITALS (24 sets, daily range): BP systolic 80–108; BP diastolic 49–64
--- NOTE | 2016-12-26 06:46 | NUR ---
BLADDER SCAN SHOWS 232ML.
--- NOTE | 2016-12-26 10:51 | NUR ---
NUTRITION FOLLOW UP NOTE: Pt NPO for EGD today. Pt apparently cannot keep any food down and is having emesis after eating. Rec consider post pyloric nutrition support if pt unable to return to eating. Or TPN if not able to use gut. RD avail for consult if desired.
--- NOTE | 2016-12-26 11:24 | NUR ---
NOT SEEN D/T H[facility]ENS[facility]. WILL CK BK 12-27-16
--- NOTE | 2016-12-26 11:55 | NUR ---
PT ALERT AND ORIENTED X3 HAS NO COMPLAINTS, HAS BEEN NPO SINCE THIS MORNING. WAITING FOR DR. OLIVAS TO SIGN CONSENT FOR EGD TO DX WHY IS VOMITTING AFTER EATING OR TAKING FLUIDS. DIMITRIOS HALL GIVEN TO KEEP PT WARM.
--- NOTE | 2016-12-26 12:56 | NUR ---
PATIENT ARRIVED TO PACU AT 1248. SPONT RESP. AROUSABLE. VITALS STABLE. NO COMPLAINT OF NAUSEA OR DISCOMFORT. WILL CONTINUE TO MONITOR.
--- NOTE | 2016-12-26 13:51 | CONSULTATION REPORT ---
DATE OF CONSULTATION: 12/26/2016 CHIEF COMPLAINT: 1. Food intolerance HISTORY OF PRESENT ILLNESS: The patient is a 81-year-old man who was admitted to the hospital 2 days ago due to diarrhea, low blood pressure and general weakness and weight loss. The patient reported that he could not hold down food, and vomited immediately after eating. Things will just simply not go down, and the patient has been extremely reluctant to eat, resulting in a great deal of weight loss and wasting. He is suspected of having some kind of mechanical problem in the upper GI tract, perhaps a stricture or stenosis or obstruction. The patient also had a 1 week history of diarrhea and generalized weakness. He had soft stools, and there was no blood reported. He appeared to be getting more lethargic at the time of admission and has been now managed with IV fluids and supportive treatment. MEDICAL/SURGICAL HISTORY: Medical history includes pneumonia, a thoracic aneurysm which is being watched, COPD, hypertension, and diarrhea. 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 In September last year, he had an upper GI endoscopy demonstrating gastritis, and at that time he was also noted to have weight loss and recurrent vomiting. MEDICATIONS: As an outpatient: 1. Alprazolam. 2. Aspirin. 3. Digoxin. 4. Diltiazem. 5. Metoprolol. 6. Sertraline. 7. Pantoprazole. 8. Ferrous sulfate. 9. Gabapentin. 10. Azithromycin. 11. Ceftriaxone. 12. Trazodone. 13. He has been started on antibiotics for pneumonia treatment while in the hospital. ALLERGIES: 1. SULFA, CAUSING HIVES. 2. MORPHINE, CAUSING MENTAL DISTURBANCE. SOCIAL HISTORY: The patient is still smoking and does not plan to quit. He is not drinking. He lives at his son's house. FAMILY HISTORY: Negative for GI malignancies, and no other changes noted. REVIEW OF SYSTEMS: A multipoint review of systems was obtained on 12/24/[address] Pruitt and is reviewed at this time. It is pertinent in that the patient denies vomiting, though this is now reported as being a significant symptom. PHYSICAL EXAMINATION: GENERAL: The patient is alert and cheerful, and he is familiar to me from previous encounters. HEENT: His ears and nose demonstrate no gross external lesions. Eyes are equal. There is no icterus. NECK: Without palpable masses. CHEST: Clear to auscultation. HEART: Regular, without murmur. ABDOMEN: Reveals no localized tenderness with palpation, and no localized tenderness in the epigastrium or the liver. LAB/IMAGING: Lab tests on admission were reviewed. His white count at that time was 20,000, hemoglobin and hematocrit of 10 and 31. The hemoglobin and hematocrit have since dropped to 8.1 and 25.2 as of yesterday. Chemistries showed hypokalemia at 3.1, decreased protein and albumin of 5.2 and 2.1. IMPRESSION: 1. Upper gastrointestinal dysfunction, possibly esophageal stricture or gastric outlet obstruction. 2. Left basilar pneumonia. 3. Stable thoracic aneurysm. 4. Unexplained anemia. PLAN: I agreed to perform an upper GI endoscopy as requested by Dr. Pruitt. The patient is familiar with this procedure, as well as the potential risks of perforation and bleeding and would like proceed as described.
--- NOTE | 2016-12-26 13:59 | OPERATIVE REPORT ---
DATE OF SURGERY: 12/26/2016 SURGEON: Giancarlo Salgado MD PREOPERATIVE DIAGNOSES: 1. Recurrent vomiting 2. Weight loss 3. Anemia POSTOPERATIVE DIAGNOSIS: 1. Gastric ulcer PROCEDURE PERFORMED: 1. Esophagogastroduodenoscopy with biopsy ANESTHESIA: Total IV general. INDICATIONS: The patient is a 81-year-old man with ongoing weight loss and anemia. He had recurrent emesis with eating. SURGICAL TECHNIQUE: The patient was taken to the endoscopy suite, where total IV general was administered and the patient was placed in the left lateral decubitus position. A well-lubricated endoscope was inserted. There was a white oval-shaped pill found in the lower esophagus, but this pushed through easily and may have refluxed up or simply been awaiting in the esophagus. This suggested possibly some poor peristaltic activity in the esophagus. There was no mechanical stricture in the esophagus, and the GE junction looked otherwise normal and nonconstricted. The stomach gastric body was entered. There was a 1.5 cm punched-out ulcer in the antrum with a fibrinous base. This did not appear to have particularly heaped up edges and was not strongly suggestive of a neoplastic ulcer. This is also a little surprising, since the patient was supposed to be on proton pump inhibitors prior to this procedure. The duodenum was entered and appeared to be normal, and there was no gastric outlet obstruction noted. On withdrawal, a CLOtest was obtained as well as multiple biopsies from the rim of the ulcer to rule out neoplastic change. In summary, this patient has a punched-out antral ulcer and needs intensified ulcer therapy. We will also need to rule out a neoplastic ulcer. If this patient should have ongoing inability to tolerate eating, then enteral feedings or a PEG tube or a PEG jejunostomy tube may be a consideration down the road.
--- NOTE | 2016-12-26 15:04 | Progress Note ---
Subjective General Pt seen and examined this morning. Patient was unable to tolerate any of his food last night. Patient altogether took less than 10% of his overall meals yesterday. Given patients reactivity to food, an EGD was obtained which showed the presence of an ulcer. Patient will be kept npo temporarily, will look for nutritional supplemenation while npo. Constitutional Denies: Fever, Chills, Sweats, Weakness, Malaise, Other. Respiratory Denies: Cough, Dry, SOB w/exertion, Wheezing, Hemoptysis, Pleuritic Pain, Sputum , Other. Cardiovascular Denies: Chest Pain, Palpitations, Orthopnea, PND, Edema, Light-headedness, Other. Gastrointestinal Vomiting. Denies: Nausea, Abdominal Pain, Diarrhea, Constipation, Melena, Hematochezia, Other. Musculoskeletal Neck Pain. Denies: Shoulder Pain, Arm Pain, Back Pain, Hand Pain, Leg Pain, Foot Pain, Other. Physical Exam Vital Signs / I&Os Vital Signs Date Time Temp Pulse Resp B/P Pulse O2 O2 Flow FiO2 Ox Delivery Rate 12/26 1438 86 12/26 1430 79 18 97/57 98 Room Air 12/26 1405 97.2 83 16 97/54 100 Nasal 0.0 Cannula 12/26 1324 75 15 103/60 100 Nasal 0.0 Cannula 12/26 1322 86 20 107/62 100 Nasal 0.0 Cannula 12/26 1305 97.9 75 13 102/59 95 02/08 1300 73 16 98/59 93 02/08 1255 74 19 84/49 98 02/08 1250 66 19 91/57 99 02/08 1248 97.3 73 18 92/58 98 02/08 1233 2.0 02/08 1106 97.5 80 18 100 Nasal 2.0 Cannula 02/08 1000 97.5 74 18 97/55 100 Nasal 2.0 Cannula 02/08 0900 2.0 02/08 0900 79 17 107/56 100 Nasal 2.0 Cannula 02/08 0800 85 14 107/63 100 Nasal 2.0 Cannula 02/08 0700 74 17 95/56 100 Nasal 2.0 Cannula 02/08 0600 98.1 82 16 98/63 100 Nasal 2.0 Cannula 02/08 0500 80 14 108/64 100 Nasal 2.0 Cannula 02/08 0400 69 17 98/52 100 Nasal 2.0 Cannula 02/08 0300 70 15 98/61 100 Nasal 2.0 Cannula 12/26 0200 98.1 79 17 101/62 100 Nasal 2.0 Cannula 12/26 0100 78 18 100/51 100 Nasal 2.0 Cannula 12/26 0010 85 23 94/58 100 Nasal 2.0 Cannula 12/25 2300 74 14 106/57 100 Nasal 2.0 Cannula 12/25 2219 98.2 82 16 98/58 100 Nasal 2.0 Cannula 12/25 2137 98 16 110/65 100 Nasal 2.0 Cannula 12/25 2019 Nasal 2.0 Cannula 12/25 2019 87 16 109/67 100 Nasal 2.0 Cannula 12/25 1952 2.0 12/25 1921 96 18 103/55 99 Nasal 2.0 Cannula 12/25 1810 97.9 108 21 101/64 100 Nasal 2.0 Cannula 12/25 1716 90 21 87/63 100 Nasal 2.0 Cannula 12/25 1611 82 16 91/62 100 Nasal 2.0 Cannula 12/25 1509 96 16 101/64 100 Nasal 2.0 Cannula I&O 12/25 0800 02/07 1600 /08 0000 Intake Total 6370 943 3993 Output Total 120 350 350 Balance 8615 571 5733 General Appearance Alert, Oriented X3, No acute distress HEENT PERRLA, EOMI, Moist mucous membranes Lungs Clear to auscultation, Normal air movement Cardiovascular Regular rate and rhythm, Normal S1 and S2, No murmurs, gallops, rubs Abdomen Normal bowel sounds, Soft, -continues to vomit after every meal Extremities No clubbing, Normal pulses, No tenderness Neurological Normal speech, Sensation intact, Cranial nerves intact LAB Results Microbiology Date/Time Procedure - Status Source Growth 12/26 1240 CLOtest - RECD GASTRIC Assessment and Plan Problem List 1. Diarrhea Plan - resolved no repeat episodes noted 2. Hypotension Plan - patient has periods of hypotension which is improved since admission - will continue with hydration - will continue with tele monitoring 3. Nausea and vomiting Status Acute Onset Date Unknown Plan - Pt was unable to tolerate any po intake since admission and stemming from his home - Pt was diagnosed with gastric ulcers in September but has not proceeded with treatment - Pt had an EGD today which showed the presence of a gastic ulcer with little to no bleeding 4. CKD (chronic kidney disease) stage 3, GFR 30-59 ml/min Status Chronic Onset Date Unknown Plan - pt has an established history of ckd - will continue with IV hydration - pts renal function has improved since admission.
--- NOTE | 2016-12-26 19:50 | NUR ---
PT RETURNED FROM EGD TODAY WHICH REVEALED A ULCER. PT HAS BEEN NPO AFTER THE PROCEDURE EXCEPT FOR HIS MEDS AND SIPS OF WATER. NO VOMITTING HAS OCCURRED SINCE HE HAS BEEN NPO ALL DAY. OOB TO [facility] AND HE PASSED DARK STOOL. BP HAS BEEN LOW 88/50. DR. MARTELL WAS NOTIFIED OF THIS WITH NO NEW ORDERS. PT HAS NO COMPLAINTS OF PAIN.
--- NOTE | 2016-12-26 23:07 | NUR ---
PT REMAINS ALERT AND ORIENTED TO NAMES, BIRTHDATE, PLACE AND YEAR - NEEDS REORIENTATION TO MONTH. DROWSY BUT ALERT. NO COMPLAINTS OF NUASEA. NO EMESIS. PT REMAINS NPO EXCEPT SIPS WITH MEDS. O2 SATS ON ROOM AIR AT 95%. WAFFLE MATTRESS IN PLACE. SCDS BILAT. PT MOVING AROUND IN BED WITH 1PERSON ASSIST AND ENCOURAGEMENT. TELE SHOWS AFIB - NO CHEST PAIN, NO HEART PALPITAITONS, NO SOB. PAIN AT A 3/10 TO BACK - CHRONIC PAIN DESCRIBED A CONSTANT ACHE - MEDICATED WITH PO TRAMADOL. CALL LIGHT WITHIN REACH. WILL CONTINUE TO MONITOR.
[2016-12-27] VITALS (32 sets, daily range): BP systolic 84–134; BP diastolic 51–84
--- NOTE | 2016-12-27 08:07 | NUR ---
PT SHOWED INCREASE CONFUSION THROUGH OUT THE SHIFT - PT BELIEVED HE WAS AT HOME. FOLLOWING COMMANDS. TUURNED EVERY COUPLE HOURS. MEPILEX IN PLACE. COOPERATIVE TO CARE. NO EMESIS. NO NAUSEA. REMAINS NPO. BED ALARM ON. CALL LIGHT WITHIN REACH.
--- NOTE | 2016-12-27 11:08 | NUR ---
pt with respiratory and unable to be seen this AM . WIll ck bk 2-10
--- NOTE | 2016-12-27 16:23 | NUR ---
NUTRITION CONSULT (FEEDING TUBE): Pt to have J-tube placed tomorrow a.m. This RD recieved verbal consult for enteral nutrition recommendations. Rec Peptamen or Vivonex RTF or equivalent. Rec rate to start slow at 25 mls per hour and then increase by 25 mls q shift to goal of 75 mls per hour continuous to provide ~1800 kcals and 90 g protein per 24 hour cycle. Monitor tolerance, bloading, cramping, diarrhea, etc. IVFs still running at 100 mls per hour. If IVFs d/c'd rec H20 bolus flush of 150 mls tid per protocol. RD to follow closely.
--- NOTE | 2016-12-27 18:52 | Progress Note ---
Subjective General Pt seen and examined. Patient is stable in comparison to the day prior. However patient is still vomiting medication and unable to keep anything down. Will speak to surgery regarding the possibility of placing a j tube for feeding. Constitutional Other (unable to assess ). Physical Exam Vital Signs / I&Os Vital Signs Date Time Temp Pulse Resp B/P Pulse O2 O2 Flow FiO2 Ox Delivery Rate 12/27 1830 98.2 72 22 113/73 100 Nasal 1.0 Cannula 12/27 1732 98.1 69 21 107/67 100 Nasal 1.0 Cannula 12/27 1700 98.1 69 16 115/67 100 Nasal 1.0 Cannula 12/27 1634 97.5 70 12 115/66 100 Nasal 1.0 Cannula 12/27 1616 98.2 70 19 101/71 100 Nasal 1.0 Cannula 12/27 1601 98.2 70 20 104/70 99 Nasal 1.0 Cannula 12/27 1534 98.1 67 17 99/69 100 Nasal 1.0 Cannula 12/27 1433 97.5 66 18 96/54 100 Nasal 1.0 Cannula 12/27 1330 97.5 67 15 94/51 100 Nasal 1.0 Cannula 12/27 1304 97.9 74 19 93/56 100 Nasal 1.0 Cannula 12/27 1300 97.9 68 19 87/59 100 Nasal 1.0 Cannula 12/27 1235 97.3 75 21 104/67 98 Nasal 1.0 Cannula 12/27 1200 97.3 68 22 84/53 100 Nasal 1.0 Cannula / 1100 72 20 95/65 100 Nasal 1.0 Cannula / 1000 70 18 107/66 100 Room Air 0.0 12/27 0909 2.0 / 0900 98.1 67 18 84/53 100 Room Air 0.0 / 0800 71 17 100/57 100 Room Air 0.0 / 0700 72 18 128/73 100 Room Air 0.0 / 0600 98.1 80 18 134/84 96 Room Air 2.0 12/27 0500 67 18 105/65 99 Room Air / 0412 69 19 117/59 97 Room Air / 0300 74 19 112/61 99 Room Air / 0200 98.1 84 18 113/67 96 Room Air / 0100 78 23 116/74 100 Room Air 12/27 0012 78 19 92/59 98 Room Air 12/26 2311 84 19 93/56 99 Room Air 12/26 2215 99.1 80 21 88/50 99 Room Air 12/26 2126 78 21 80/49 99 Room Air 12/26 2019 Room Air 12/26 2019 78 20 88/50 99 Room Air 12/26 2003 70 20 85/55 100 Room Air 12/26 2001 2.0 I&O 12/26 0800 12/26 1600 12/27 0000 Intake Total 2482 213 6181 Output Total 250 275 300 Balance 1407 -75 800 General Appearance Alert, Oriented X3, No acute distress HEENT PERRLA, Moist mucous membranes Lungs Clear to auscultation, Normal air movement Cardiovascular Normal S1 and S2, No murmurs, gallops, rubs Abdomen No tenderness, No guarding, No rebound Extremities Normal pulses, No tenderness Skin No Breakdown, No Significant Lesions Psych/Mental Status Confused LAB Results Laboratory Tests 12/27 0345 Chemistry Plasma Sodium (136 - 145 mmol/L) 147 Plasma Potassium (3.5 - 5.1 mmol/L) 3.4 Plasma Chloride (98 - 107 mmol/L) 115 CO2 (Enzymatic) (21 - 32 mmol/L) 22 BUN (7 - 18 mg/dL) 30 Creatinine (0.6 - 1.3 mg/dL) 2.7 Est GFR ( Amer) (mL/min) 29.51 Est GFR (Non-Af Amer) (mL/min) 24.35 Glucose (70 - 110 mg/dL) 94 Plasma Calcium (8.5 - 10.1 mg/dL) 7.4 Total Bilirubin (0.0 - 1.0 mg/dL) 0.3 AST (15 - 37 U/L) 13 ALT (12 - 78 U/L) 10 Alkaline Phosphatase (46 - 116 U/L) 81 Total Protein (6.4 - 8.2 g/dL) 4.8 Albumin (3.3 - 5.0 g/dL) 1.9 Hematology WBC (4.5 - 11.5 K/uL) 8.0 RBC (4.50 - 5.90 M/uL) 2.53 Hgb (13.5 - 17.5 gm/dL) 7.5 Hct (41.0 - 53.0 %) 23.0 MCV (80 - 100 fL) 91 MCH (26 - 34 pg) 30 RDW (11.6 - 14.8 %) 17.9 Neut % (Auto) (50 - 75 %) 77.7 Lymph % (Auto) (25 - 40 %) 10.7 [place] % (Auto) (3 - 14 %) 11.4 Eos % (Auto) (0 - 4 %) 0.1 Baso % (Auto) (0 - 2 %) 0.1 Plt Count, EDTA (150 - 400 K/uL) 177 PUBS MCHC (31 - 37 g/dL) 33 Assessment and Plan Problem List 1. Pneumonia Plan - will continue with antibiotics - improved - adequate lung exam 2. CKD (chronic kidney disease) stage 3, GFR 30-59 ml/min Status Chronic Onset Date Unknown Plan - established - stable at the moment - will continue with ivf infusion with D5NS 3. Nausea and vomiting Status Acute Onset Date Unknown Plan - secondary to gastic ulcer - will keep npo on IVF 4. Anemia Plan - Pt has anemia secondary to blood loss from ulcer - Will plan to do j tube tomorrow to feed patient - family agrees to plan 5. Gastric ulcer Plan - will continue with carafate and ppis bid - will obtain j tube tomorrow
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
[2016-12-28] VITALS (21 sets, daily range): BP systolic 98–127; BP diastolic 57–81
--- NOTE | 2016-12-28 02:46 | NUR ---
Pt alert and cooperative, SBP teens, afebrile, Afib 70-80 frequent PVC's, multi-focal and couplets, assists with repositioning, stools via bedpan brief, soft dark brown, forgets to use call light bed alarm on for safety/fall prevention. NPO for J-tube placement tomorrow.
--- NOTE | 2016-12-28 10:31 | NUR ---
INTRODUCED SELF TO PT AND DAUGHTER IN PRE OP HOLDING. PT AND DAUGHTER VERIFIED PT NAME, BIRTHDATE, ALLERGIES AND SURGICAL CONSENT. PT WAS GIVEN METOPROLOL AT APPROX 0915 12-28-16. PT NPO PREMIDNIGHT. PT CHART REVIEWED AND PT AND DAUGHTER QUESTIONS WERE ANSWERED. ANTIBIOTICS NOT INDICATED FOR PROCEDURE. FIOR
--- NOTE | 2016-12-28 10:33 | NUR ---
PT RESTATED NAME AND BIRTHDATE AFTER ENTERING OR SUITE. PT WAS TRASFERRED TO OR BED VIA OR STAFF. FIOR
--- NOTE | 2016-12-28 10:33 | NUR ---
RECEIVED TO UNIT, DROWSY, ABLE TO CLEAR THROAT. O2/NC IV TKO, ATRIAL FIB NOTED ON RHYTHM MONITOR.
--- NOTE | 2016-12-28 10:33 | NUR ---
PT TRANSPORTED TO PACU, REPORT GIVEN TO PACU NURSE. SD
--- NOTE | 2016-12-28 10:47 | NUR ---
SEEN BY SURGEON POST OPERATIVELY, SIPPING WATER, POSITIONED TO COMFORT IN BED, OMAR HUGGER FOR COMFORT. PLAN - RETURN TO UNIT
--- NOTE | 2016-12-28 11:02 | NUR ---
pt in OR. Will ck bk 2-13
--- NOTE | 2016-12-28 11:16 | OPERATIVE REPORT ---
DATE OF SURGERY: 12/28/2016 SURGEON: Jyoti Dunn III, MD CARDIOVASCULAR RADIOLOGIC TECHNOLOGIST: None. PREOPERATIVE DIAGNOSIS: 1. Peptic ulcer disease and poor nutrition POSTOPERATIVE DIAGNOSIS: 1. Peptic ulcer disease and poor nutrition PROCEDURE PERFORMED: 1. Upper gastrointestinal endoscopy with percutaneous endoscopic gastrostomy tube placement. ANESTHESIA: TIVA, posterior pharynx Cetacaine spray. ESTIMATED BLOOD LOSS: None. FLUIDS: 200 mL. PATHOLOGY SPECIMEN: None. INDICATIONS: The patient is a 81-year-old male with a recent diagnosis of pneumonia and a gastric ulcer who was having a hard time keeping food down and having diarrhea. Because of his nutritional status, it was felt that he should have some type of feeding tube device originally thought perhaps a jejunostomy would be better. However, because of his previous abdominal aortic aneurysm repair and possible adhesions, that a feeding jejunostomy would be much more complicated. Therefore, it was decided to place a PEG tube placement to see how this would work out for the patient. SURGICAL FINDINGS: No gross evidence of outlet obstruction. The patient was noted to have a superficial gastric nonbleeding ulcer of the distal stomach. The PEG tube was placed proximal to this in the stomach. SURGICAL TECHNIQUE: The patient was brought to the operating room and placed in the dorsal supine position, where he was administered TIVA and monitored closely by anesthesia. After proper anesthesia had taken effect, an Olympus fiberoptic video flexible upper GI endoscope was passed down the patient's posterior pharynx, esophagus intubated under direct visualization. The scope passed easily down the esophagus , through the EG junction, into the gastric lumen, where the ulcer was identified. The stomach was insufflated with air. The anterior abdominal wall was balloted, a good site proximal to the ulcer was identified. This site was then prepped using ChloraPrep, infiltrated using local anesthetic. A percutaneous needle was inserted through this site into the gastric lumen, through which a wire was passed through the catheter, which was grasped using a loop biopsy snare and pulled up along with the scope out the patient's mouth. The loop biopsy snare was released. The wire was then attached to the PEG tube. The PEG tube was then well lubricated and a small incision made at the exit site of the wire. The wire was then pulled, pulling the PEG tube down the patient's mouth and out the anterior abdominal wall. It was then secured into position after first dressing the wound with Betadine and 4 x 4s. The bolster was then slid down the PEG tube catheter and secured using 2 -0 silk. The PEG tube was then trimmed to length and the attachment placed. The patient tolerated the procedure well. The scope was then passed down the patient's mouth again down the esophagus into the gastric lumen. The PEG tube was visualized to be in good position. The scope was then withdrawn. The patient tolerated the procedure well and was transferred to the recovery room in stable condition. There were no intraoperative or anesthetic complications. PEG tube left behind was a 20-[place]ron[place].
--- NOTE | 2016-12-28 13:16 | NUR ---
NUTRITION NOTE: Pt with PEG tube placment. Recommend VIVONEX RTF to start slow at 20 mls per hour and run for 12 hours, if tolerated advance to 40 mls per hour and run for 12 hours, advance by 15 mls to goal rate of 55 mls per hour to provide 1320 kcals and 66 g protein. Initally wanted 75 mls per hour but MD would like to remain lower at 50 or 55 mls per hour to ensure tolerance. IVS continue to run at 100 mls per hour. If IVFs d/c' recommend water bolus flushes at 90 mls TID and 30 mls before and after med administration. Will follow up and monitor wts, labs, overal tolerance.
--- NOTE | 2016-12-28 18:17 | NUR ---
PT IS MORE ALERT TODAY AFTER HE HAD HIS PEG TUBE PLACEMENT. PT HAS BEEN PASSING LARGE AMOUNT OF BILE APPEARING LIQUID STOOL WHICH HAS EXCORIATED AROUND HIS RECTUM. RECTUM TUBE WAS PLACED BUT DUE TO THE SIZE OF HIS RECTAL VOLT IT MAY NOT WORK PLANNED HIS RECTAL AREA WAS COVERED WITH A THICK PINK PROTECTIVE CREAM AND MEPLEX WAS PLACED ON HIS COCCYX. PT WAS STARTED ON TUBE FEEDING AT 1600 AT 20 CC/HR. PT WAS GIVEN TORADOL FOR PAIN. EARLIER TODAY PT WAS HAVE RUNS OF CUPLETS AND BIGIMINY AND PRIOR TO OR PT HAD BEEN GIVEN METROPOLOL 5 MG IV. TORODOL 30 MG IV WAS GIVEN FOR PAIN.
--- NOTE | 2016-12-28 18:21 | Progress Note ---
Subjective General Pt had no acute events overnight. Patient went for feeding tube placement without any problems. Feeds were started on the patient and he is currently tolerating it. Constitutional Other (unable to assess ). Physical Exam Vital Signs / I&Os Vital Signs Date Time Temp Pulse Resp B/P Pulse O2 O2 Flow FiO2 Ox Delivery Rate 12/28 1705 84 16 120/70 98 Nasal 2.0 Cannula 12/28 1604 73 18 122/81 98 Nasal 2.0 Cannula 12/28 1510 69 22 116/70 97 Nasal 2.0 Cannula 12/28 1330 68 15 103/76 100 Nasal 2.0 Cannula 12/28 1300 72 22 104/73 99 Nasal 2.0 Cannula 12/28 1222 98.1 73 22 112/76 99 Nasal 2.0 Cannula 12/28 1200 76 20 114/76 Nasal Cannula 12/28 1145 70 20 110/71 98 Nasal 2.0 Cannula 12/28 1130 66 22 114/59 99 Nasal 2.0 Cannula 12/28 1115 70 20 112/74 99 Nasal 2.0 Cannula 12/28 1108 97.3 68 20 114/75 100 Nasal 2.0 Cannula 12/28 1045 74 20 109/68 99 Nasal 2.0 Cannula 12/28 1040 64 19 99/66 99 Nasal 2.0 Cannula 12/28 1035 68 20 97/61 100 / 1030 68 18 99/65 100 Nasal 2.0 Cannula 12/28 1027 98.8 77 16 98/62 97 Nasal 2.0 Cannula 12/28 0700 98.1 82 20 111/68 99 Room Air 1.0 12/28 0600 80 20 105/64 99 Room Air 12/28 0500 67 20 99/60 100 Room Air / 0400 68 21 107/60 100 Room Air 12/28 0300 99.0 72 20 100/65 100 Room Air / 0211 69 21 117/69 100 Room Air / 0100 76 23 98/57 99 Room Air / 0000 66 21 99/63 100 Room Air 12/27 2300 64 20 104/69 99 Room Air 12/27 2200 98.1 68 19 113/73 98 Room Air 12/27 2118 98.2 68 20 104/63 99 Room Air 12/27 2027 98.1 71 22 112/61 100 Room Air 12/27 1954 1.0 12/27 1915 98.4 79 18 110/62 98 Nasal 1.0 Cannula 12/27 1830 98.2 72 22 113/73 100 Nasal 1.0 Cannula I&O 12/27 0800 12/27 1600 12/28 0000 Intake Total 0 310 1695 Output Total 252 0 400 Balance -465 274 3603 General Appearance Cooperative, No acute distress HEENT Atraumatic, PERRLA, EOMI, Moist mucous membranes Lungs Normal exam, Clear to auscultation, Normal air movement Cardiovascular Regular rate and rhythm, Normal S1 and S2, No murmurs, gallops, rubs Abdomen Normal bowel sounds, Soft Rectal -diarrhea Extremities No clubbing, No edema, Normal pulses Skin No Rashes, No Significant Lesions Psych/Mental Status Mood normal LAB Results Laboratory Tests 12/28 0350 Chemistry Plasma Sodium (136 - 145 mmol/L) 149 Plasma Potassium (3.5 - 5.1 mmol/L) 3.0 Plasma Chloride (98 - 107 mmol/L) 118 CO2 (Enzymatic) (21 - 32 mmol/L) 19 BUN (7 - 18 mg/dL) 29 Creatinine (0.6 - 1.3 mg/dL) 2.6 Est GFR ( Amer) (mL/min) 30.83 Est GFR (Non-Af Amer) (mL/min) 25.43 Glucose (70 - 110 mg/dL) 101 Plasma Calcium (8.5 - 10.1 mg/dL) 7.5 Total Bilirubin (0.0 - 1.0 mg/dL) 0.6 AST (15 - 37 U/L) 11 ALT (12 - 78 U/L) 8 Alkaline Phosphatase (46 - 116 U/L) 77 Total Protein (6.4 - 8.2 g/dL) 4.7 Albumin (3.3 - 5.0 g/dL) 1.8 Coagulation Protein C Antigen Pending Hematology WBC (4.5 - 11.5 K/uL) 5.9 RBC (4.50 - 5.90 M/uL) 3.08 Hgb (13.5 - 17.5 gm/dL) 9.2 Hct (41.0 - 53.0 %) 27.7 MCV (80 - 100 fL) 90 MCH (26 - 34 pg) 30 RDW (11.6 - 14.8 %) 17.0 Neut % (Auto) (50 - 75 %) 65.8 Lymph % (Auto) (25 - 40 %) 19.5 [place] % (Auto) (3 - 14 %) 14.1 Eos % (Auto) (0 - 4 %) 0.3 Baso % (Auto) (0 - 2 %) 0.3 Plt Count, EDTA (150 - 400 K/uL) 168 PUBS MCHC (31 - 37 g/dL) 33 Assessment and Plan Problem List 1. Gastric ulcer Plan - Pt has endoscopic evidence of gastric ulcer - peg tube placed for feeding given inability to keep food down - will initiate tube feedings and monitor for ability to tolerate it - will begin at 20 ml/hr and advance slowly 2. Diarrhea Plan - Pt having repeat episodes of diarrhea despite not having it for a few days - will place rectal tube - will send stool for c diff 3. Nausea and vomiting Status Acute Onset Date Unknown Plan - no episodes of vomiting since the feeding throught the peg started - will monitor for vomiting 4. CKD (chronic kidney disease) stage 3, GFR 30-59 ml/min Status Chronic Onset Date Unknown Plan - stable - will continue with IV hydration
[2016-12-29] VITALS (8 sets, daily range): BP systolic 102–126; BP diastolic 63–87
--- NOTE | 2016-12-29 00:55 | NUR ---
PATIENT HAD RUNS OF BIGEMINY, ASSESSED PATIENT, STATED NO PAIN OR DISCOMFORT, HAD SOME ELECTRICAL ACTIVITY AND BASELINE AFIB, PATIENT C/O SEVERE PRESSURE CHEST PAIN, GAVE 2MG OF MORPHINE WITH NO RELIEF, APPLIED O2 NC AT 2L, GOT EKG, BASELINE AFIB, HR BETWEEN, 75-90, BP 126/87, RR 17, O2 SAT 100% ON 2L, PATIENT PALE, MD AWARE, NEW ORDERS RECIEVED, WILL CONTINUE TO MONITOR
--- NOTE | 2016-12-29 01:24 | NUR ---
PATIENT STATES CHEST PAIN BETTER AFTER GI COCKTAIL, WILL CONTINUE TO MONITOR
--- NOTE | 2016-12-29 01:46 | NUR ---
RESIDUAL CHECKED FREQUENTLY FROM NEW PEG PLACEMENT AND TUBE FEED ADMINISTRATION, LESS THAN 1ML RESIDUAL EACH TIME, 90ML WATER GIVEN AT 2200, WILL CONTINUE TO MONITOR
--- NOTE | 2016-12-29 04:39 | NUR ---
CHECKED RESIDUALS ON TUBE FEED, 0 OUT, INCREASED TUBE FEED TO 40ML PER HOUR, NO FURTHER C/O CHEST PAIN AFTER GI COCKTAIL ADMINISTERED, WILL CONTINUE TO MONITOR
--- NOTE | 2016-12-29 13:45 | NUR ---
PT UP IN CHAIR WITH LIFT. DID NOT TOLERATE BEING UP IN CHAIR. C/O BACK AND GENERALIZED PAIN. MORPHINE GIVEN WITH LITTLE RELIEF. ATE 1/2 OF YOGURT AND SIPS OF COFFEE. FELT BETTER ONCE BACK IN BED. MONITOR SHOWS AF WITH PERIODS OF FREQUENT PVC'S AND RUNS. DR. TARANGO AWARE OF UNABLE TO TOLERATED CHAIR. NO EMESIS. RECTAL TUBE DRAINING ABOUT 150ML OF DARK LIQUID STOOL.
--- NOTE | 2016-12-29 17:02 | NUR ---
REPORT GIVEN TO DUNCAN RN, ON ACUTE CARE, AND ACCEPTED CARE. PT TRANSFERRED TO 202.
--- NOTE | 2016-12-29 17:38 | Progress Note ---
Subjective General Pt doing very well today. Patient has not vomited once since feeding has started. Patient additionally has increased energy. Patient has been having diarrhea which will be sent for analysis. Constitutional Other (unable to assess ). Physical Exam Vital Signs / I&Os Vital Signs Date Time Temp Pulse Resp B/P Pulse O2 O2 Flow FiO2 Ox Delivery Rate 12/29 1723 97.9 77 24 115/65 98 Nasal 2.0 Cannula 12/29 1438 97.9 70 24 108/63 98 Nasal 2.0 Cannula 12/29 1035 97.7 70 24 116/75 100 Nasal 2.0 Cannula 12/29 0800 Nasal 2.0 Cannula 12/29 0740 2.0 12/29 0632 97.5 75 22 102/63 99 Nasal 2.0 Cannula 12/29 0226 97.5 84 24 107/68 99 Nasal 2.0 Cannula 12/29 0056 89 19 126/87 100 Nasal 2.0 Cannula 12/29 0053 2.0 12/28 2234 97.3 71 21 108/76 98 Room Air 12/28 2123 Room Air 12/28 1811 97.3 77 21 127/65 97 I&O 12/28 0800 12/28 1600 12/29 0000 Intake Total 0924 696 0893 Output Total 200 100 Balance 253 744 5789 General Appearance Cooperative, No acute distress HEENT Atraumatic, PERRLA, Moist mucous membranes Lungs Normal exam, Clear to auscultation Cardiovascular Normal S1 and S2, No murmurs, gallops, rubs Abdomen Soft, - peg site looks appropriate Extremities Normal pulses, No tenderness Skin - some rawness seen on the backside Psych/Mental Status Mood normal LAB Results Laboratory Tests 12/29 12/29 0600 0600 Chemistry Plasma Sodium (136 - 145 mmol/L) 146 Plasma Potassium (3.5 - 5.1 mmol/L) 2.9 Plasma Chloride (98 - 107 mmol/L) 114 CO2 (Enzymatic) (21 - 32 mmol/L) 18 BUN (7 - 18 mg/dL) 27 Creatinine (0.6 - 1.3 mg/dL) 2.5 Est GFR ( Amer) (mL/min) 32.25 Est GFR (Non-Af Amer) (mL/min) 26.61 Glucose (70 - 110 mg/dL) 157 Plasma Calcium (8.5 - 10.1 mg/dL) 7.3 Plasma Magnesium (1.8 - 2.4 mg/dL) 1.4 Troponin (0.00 - 1.5 ng/mL) <0.05 Hematology WBC (4.5 - 11.5 K/uL) 6.4 RBC (4.50 - 5.90 M/uL) 2.98 Hgb (13.5 - 17.5 gm/dL) 9.0 Hct (41.0 - 53.0 %) 26.9 MCV (80 - 100 fL) 90 MCH (26 - 34 pg) 30 RDW (11.6 - 14.8 %) 16.7 Neut % (Auto) (50 - 75 %) 64.9 Lymph % (Auto) (25 - 40 %) 19.9 [place] % (Auto) (3 - 14 %) 14.5 Eos % (Auto) (0 - 4 %) 0.3 Baso % (Auto) (0 - 2 %) 0.4 Plt Count, EDTA (150 - 400 K/uL) 158 PUBS MCHC (31 - 37 g/dL) 33 Microbiology Date/Time Procedure - Status Source Growth 12/29 1615 Clostridium difficile Toxin A & B - RECD STOOL 12/29 1615 Specimen Source - RECD STOOL Assessment and Plan Problem List 1. Gastric ulcer Plan - c/w treatment- ppis bid and carafate solution - will continue with tube feeding for the time being 2. Diarrhea Plan - pt has been having diarrhea since the feeds had started - will send for c diff - will replace electrolytes as needed 3. Nausea and vomiting Status Acute Onset Date Unknown Plan - resolved - pt has not had any vomiting episodes today 4. CKD (chronic kidney disease) stage 3, GFR 30-59 ml/min Status Chronic Onset Date Unknown Plan - stable
--- NOTE | 2016-12-29 22:53 | NUR ---
PATIENT IS ALERT AND ORIENTED, HE HAS BEEN C/O PX, NO C.O N,V. BOWEL TONES PRESENT, ALERT AND ORIENTED, RECTAL DRAIN IN TACT. LUNG SOUNDS DIMINISHED.
[2016-12-30 02:34] VITALS: BP 108/62
[2016-12-30 06:47] VITALS: BP 116/65
--- NOTE | 2016-12-30 09:36 | NUR ---
PATIENT SITTING UP IN CHAIR FOR BREAKFAST USING MECHANICAL LIFT TO GET FROM BED TO CHAIR. G TUBE RUNNING W/O PROBLEMS. IV SL'D PER MD ORDERS. RECTAL TUBE IN PLACE. NO DISTRESS NOTED. SEE SHIFT ASSESSMENT FOR DETAILS.
[2016-12-30 10:49] VITALS: BP 117/77
--- NOTE | 2016-12-30 12:01 | NUR ---
THIS RN SPOKE TO SON THIS MORNING AND TO DTR ABOUT DC PLANS. BOTH STATE THEY WOULD LIKE PATIENT TO DC HOME WITH THEM WITH 24 HOUR CARE AND HAVE TEACHING ABOUT TUBE FEEDING AND NOT TO DC TO SNF. RELAYED INFO TO CARE TEAM.
[2016-12-30 14:43] VITALS: BP 107/65
--- NOTE | 2016-12-30 16:30 | Progress Note ---
Subjective General PT doing well without any acute events overnight. Patient is more energetic this morning, and is communicating more than he had in the previous days. Patient has not had any vomiting after feeds were started. Constitutional Denies: Fever, Chills, Sweats, Weakness, Malaise, Other. Respiratory Denies: Cough, Dry, SOB w/exertion, Wheezing, Hemoptysis, Pleuritic Pain, Sputum , Other. Gastrointestinal Diarrhea. Denies: Nausea, Vomiting. Musculoskeletal Neck Pain. Physical Exam Vital Signs / I&Os Vital Signs Date Time Temp Pulse Resp B/P Pulse O2 O2 Flow FiO2 Ox Delivery Rate 12/30 1443 97.9 84 20 107/65 97 Room Air 12/30 1049 97.9 82 20 117/77 98 Room Air 12/30 1024 96 12/30 0918 2.0 12/30 0647 97.9 90 18 116/65 96 Nasal 2.0 Cannula 12/30 0234 97.9 65 16 108/62 98 Nasal 2.0 Cannula 12/30 0025 Nasal 2.0 Cannula 12/29 2254 98.1 68 18 111/64 99 Nasal 2.0 Cannula 12/29 2104 2.0 12/29 1840 97.9 75 20 117/70 97 Nasal 2.0 Cannula 12/29 1723 97.9 77 24 115/65 98 Nasal 2.0 Cannula I&O 12/29 0800 12/29 1600 12/30 0000 Intake Total 4598 600 0017 Output Total 225 415 925 Balance 1244 247 399 General Appearance Alert, No acute distress HEENT Normal exam, PERRLA, EOMI, Moist mucous membranes Lungs Clear to auscultation, Normal air movement Cardiovascular - no tachycardia, irregular rhtym Abdomen Normal exam, Normal bowel sounds, - peg site looks good Skin - rawness to the backside secondary to frequent cleaning Psych/Mental Status Mood normal LAB Results Laboratory Tests 12/30 0550 Chemistry Plasma Sodium (136 - 145 mmol/L) 144 Plasma Potassium (3.5 - 5.1 mmol/L) 3.4 Plasma Chloride (98 - 107 mmol/L) 115 CO2 (Enzymatic) (21 - 32 mmol/L) 19 BUN (7 - 18 mg/dL) 22 Creatinine (0.6 - 1.3 mg/dL) 2.1 Est GFR ( Amer) (mL/min) 39.44 Est GFR (Non-Af Amer) (mL/min) 32.54 Glucose (70 - 110 mg/dL) 108 Plasma Calcium (8.5 - 10.1 mg/dL) 7.5 Total Bilirubin (0.0 - 1.0 mg/dL) 0.4 AST (15 - 37 U/L) 11 ALT (12 - 78 U/L) 9 Alkaline Phosphatase (46 - 116 U/L) 77 Total Protein (6.4 - 8.2 g/dL) 4.8 Albumin (3.3 - 5.0 g/dL) 1.9 Hematology WBC (4.5 - 11.5 K/uL) 6.1 RBC (4.50 - 5.90 M/uL) 3.08 Hgb (13.5 - 17.5 gm/dL) 9.3 Hct (41.0 - 53.0 %) 27.7 MCV (80 - 100 fL) 90 MCH (26 - 34 pg) 30 RDW (11.6 - 14.8 %) 17.5 Neut % (Auto) (50 - 75 %) 60.6 Lymph % (Auto) (25 - 40 %) 26.4 [place] % (Auto) (3 - 14 %) 12.3 Eos % (Auto) (0 - 4 %) 0.3 Baso % (Auto) (0 - 2 %) 0.4 Plt Count, EDTA (150 - 400 K/uL) 147 PUBS MCHC (31 - 37 g/dL) 33 Assessment and Plan Problem List 1. Gastric ulcer Plan - will continue with ppi and carafate solution - will continue with low rate feeds for the time being - will increase rate to 30 ml,hr - will sit upright while in chair 2. Nausea and vomiting Status Acute Onset Date Unknown Plan - pt has not had any vomiting since the peg was placed 3. Diarrhea Plan - continual - c diff sent - will continue to monitor electrolytes and replace as necessary 4. CKD (chronic kidney disease) stage 3, GFR 30-59 ml/min Status Chronic Onset Date Unknown Plan - stable 5. Weak Plan - pt has improved strength after feeds had started
[2016-12-30 19:25] VITALS: BP 109/69
[2016-12-30 22:26] VITALS: BP 117/76
--- NOTE | 2016-12-30 23:00 | NUR ---
Patient repositioned in bed periodically. PEG feed on rest period and is to resume at 6AM. Made sure rectal tube is not kinked.
[2016-12-31] VITALS (7 sets, daily range): BP systolic 109–125; BP diastolic 67–86
--- NOTE | 2016-12-31 | NUR ---
Dr. Iqbal confirms that Vivonex feed (which is currently not available) could be substituted with Fibresource feed as it has the same contents.
--- NOTE | 2016-12-31 10:42 | NUR ---
In to see patient who presents to the hospital with stage 3 pressure ulcers to the coccyx that were present upon admission, in fact patient [facility] that they missed because of this admission. Please see the photographic wound assessment sheet for photo and wound characterisitics. Dressing change completed, wounds cleansed with NS, then Therahoney applied to wound bases after ensuring no allergies to honey. Covered with Adpatic cut to fit and secured with Mepilex Sacrum Foam that will both cover wounds and also treat/protect the surrounding stage 1 pressure injuries on sacrum/coccyx and buttocks. Extensive patient education regarding etiology, prevention and treatment of pressure injuries to patient. Showed picture patient so he will understand the dire need to keep pressure/weight off of coccyx area. Pt agrees to try and keep weight off and will allow staff to repostion him regularly. In addition, feet/ankles swollen, heels feel mushy, and with Erythema, faint blanchable, no open areas, there is patches of dry skin plaques on plantar surface of left heel. Will continue to monitor.
--- NOTE | 2016-12-31 11:43 | NUR ---
pt supine in bed upon entering room. pt agreeable to skilled PT intervention. pt completed supine to sit Min A and HOB elevated. pt completed sit to stand using a FWW Min A x2. Once standing pt completed 3 side steps towards HOB and then controlled stand to sit at the EOB. pt c/o of fatigue. pt required Mod A for sit to supine for BLE. pt continued to require 2PA to adjust and move in bed. pt left supine in a bridge position of his bottom per instructions from finger grip machine operator. pt is recommended to d/c to SNF with PT for increased strengthening for safe basic functional mobility. Will continue to follow.
--- NOTE | 2016-12-31 13:04 | NUR ---
NUTRITION FOLLOW UP NOTE: Pt continues on tube feeding this am, continues with diarrhea which started prior to tube feeding. Rectal tube placed as well. Per brick pitcher pt has a stage III healing ucler (on his bottom) not open per nsg. Pt is tolerating his tube feeding at 55 mls per hour, minimal residuals and no nausea reported per nsg. Pt started on Fibersource HN over the weekend d/t limited supply for the weekend, suggested pt go back to free amino acid formula for optimal absorption of protein. Discussed pt in multidiciplinary rounds today, pt was C-diff negative, and MD suggesting start Immodium for diarrhea. Home infusion to be consulted for eligability for home enteral feedings. Noted pt sign wt gain since admit admit wt 59kg and todays wt 70 kg since Dec 24, alerted MD with concern via phone. RD continue to closely monitor.
--- NOTE | 2016-12-31 18:51 | Progress Note ---
Subjective General Pt seen and examined. Patient is tolerating feeds and is very energetic today. Patient is improved and speaking much more. Constitutional Weakness. Denies: Fever, Chills, Sweats, Malaise, Other. Respiratory Denies: Cough, Dry, SOB w/exertion, Wheezing, Hemoptysis, Pleuritic Pain, Sputum , Other. Cardiovascular Denies: Chest Pain, Palpitations, Orthopnea, PND, Edema, Light-headedness, Other. Gastrointestinal Diarrhea. Denies: Nausea, Vomiting, Abdominal Pain, Constipation, Melena, Hematochezia, Other. Musculoskeletal Neck Pain. Denies: Shoulder Pain, Arm Pain, Back Pain, Hand Pain, Leg Pain, Foot Pain, Other. Physical Exam Vital Signs / I&Os Vital Signs Date Time Temp Pulse Resp B/P Pulse O2 O2 Flow FiO2 Ox Delivery Rate 01/01 1051 98.1 80 20 117/70 98 Nasal 2.0 Cannula 01/01 0855 97.5 77 20 113/77 99 Nasal 2.0 Cannula 01/01 0800 2.0 01/01 0752 2.0 01/01 0227 98.1 73 20 124/85 99 Nasal 2.0 Cannula 12/31 2344 Nasal 2.0 Cannula 12/31 2227 97.3 79 20 121/72 100 Nasal 2.0 Cannula 12/31 2109 2.0 12/31 1808 2.0 12/31 1808 97.9 113 20 121/79 100 Nasal 2.0 Cannula I&O 12/31 0800 12/31 1600 01/01 0000 Intake Total 330 748 Output Total 728 350 325 Balance -398 -350 423 General Appearance Alert, Oriented X3, No acute distress HEENT Normal exam, PERRLA, Moist mucous membranes Lungs Normal exam, Clear to auscultation Neck Supple Cardiovascular Regular rate and rhythm, Normal S1 and S2, No murmurs, gallops, rubs Abdomen Soft, - peg site looks clean Extremities Normal exam, - edema present throughout his body Neurological Normal speech, Normal tone, Cranial nerves intact Assessment and Plan Problem List 1. Gastric ulcer Plan - Pt has endoscopic evidence of gastic ulcer - will continue treatment with bid ppis and carafate - will continue with tube feeding as tolerated 2. Persistent vomiting Plan - pt has persistent vomiting secondary to gastric inflammation - Pt when fed po is unable to tolerate anything and vomits it back up almost instataneously secondary to the inflammation - Given this scenario patient is at very high risk of aspiration and as a result aspiration pneumonia - Pts feeding tube is present to prevent this 3. Diarrhea Status Chronic Onset Date Unknown Plan - pt is having persistent diarrhea - will start immodium and hold reglan - pt is c diff negative 4. CKD (chronic kidney disease) stage 3, GFR 30-59 ml/min Status Chronic Onset Date Unknown Plan - stable - no further detioration 5. UTI (urinary tract infection) Status Acute Onset Date Unknown Plan - treatment complete
[2017-01-01] VITALS (7 sets, daily range): BP systolic 113–124; BP diastolic 68–85
--- NOTE | 2017-01-01 06:23 | NUR ---
TUBE FEEDING RESTARTED AT 0615. VIVONEX RTF AT 55ML/HR. NEW TUBING HUNG. FLUSHED PEG TUBE WITH 90ML PRIOR TO START.
--- NOTE | 2017-01-01 07:25 | NUR ---
VSS. A&OX3, FORGETFUL AT TIMES. UNEVENTFUL NIGHT. MEDICATED FOR PAIN. WCTM.
--- NOTE | 2017-01-01 10:54 | NUR ---
pt supine in bed upon entering room. pt was agreeable to completing skilled PT treatment. pt completed resistive knee/hip extension x5 BLE; resistive shoulder/elbow extension x5 BUE. pt completed supine to sit SBA with HOB elevated 30degrees. pt completed STS using Mod A with a FWW. pt completed 5 side steps towards HOB. LLE had increased difficulty lifting off the floor. pt completed stand to sit. pt had a seated break for 2 min and then stood again using Mod A with a FWW. v/c to get balance and not lean against the bed for the balance. pt required Min A for sit to supine and 2PA to scoot pt up in bed. pt safety is a concern if pt d/c home as pt's endurance and strength levels are not high enough to complete a safe bed <=> BSC transfer at this time. Safety with mobility concerns brought up with DTR in the room. pt is continued to be recommended to d/c to SNF with PT and OT to increase strength for safe basic functional mobility prior to returning home.
--- NOTE | 2017-01-01 11:14 | NUR ---
NUTRITION FOLLOW UP NOTE: Pt hipolito under review for home infusion, spoke with home infusion RD regarding qualifications for pump and semi elemental formula. Per review of pt PMH and admission course. Pt has been assessessed medically at high risk for aspiration as he is unable to keep food down prior PEG tube placement. Pt has lost ~27 pounds see September 2016 and has had diarrhea. Review MD notes and H&P. Pt tube feeding is currently running at 16 hours a day at 55 mls. Pt is off from 10pm to 6am to prevent risk of aspiration during noc while sleeping per MD. Pt is recieving ~880 kcals and 74 g protein. If pt unable to run continues which just was reported to this RD, Rec consider higher aidee formula to optimize kcal and protein at a lower volume. Will continue to discuss with multidicipliary team and home infusion. Will follow kodi.
--- NOTE | 2017-01-01 14:47 | NUR ---
NUTRITION FOLLOW UP NOTE (ADDENDUM) Spoke with dietitian from [facility] home infusion regarding formula change. Would like to try house formula as pt has been on enteral nutrition since 12/28 and tolerating. Would like to suggest a formula that would not exacerbate pts diarrhea with low to mod osmolality. Rec Isoursource HN to run at 55 mls per hour continuous x 24 hours to provide ~1584 kcals and 70 g protein. Would like to see pt advance to 80 mls per hour to provide ~2160 kcls and 100 g per protein which would provide ~27 kcals per kg IBW (80 kg), 1.25 g protein per kg. Rec 100 ml water bolus flushes tid to provide ~1 ml of H20 per kcal total free water. Monitor tolerance, elevate HOB at least [address] to continue to monitor closely. Noted albumin 1.9, nsg suspects possible 3rd spacing, MD aware. Rec order prealbumin lab.
--- NOTE | 2017-01-01 15:03 | Progress Note ---
Subjective General Pt doing well today, still having diarrhea. Will dc reglan and continue with stool softener. Constitutional Denies: Fever, Chills, Sweats, Weakness, Malaise, Other. Respiratory Denies: Cough, Dry, SOB w/exertion, Wheezing, Hemoptysis, Pleuritic Pain, Sputum , Other. Cardiovascular Edema. Denies: Chest Pain, Palpitations, Orthopnea, PND, Light-headedness, Other. Gastrointestinal Denies: Nausea, Vomiting, Abdominal Pain, Diarrhea, Constipation, Melena, Hematochezia, Other. Musculoskeletal Denies: Neck Pain, Shoulder Pain, Arm Pain, Back Pain, Hand Pain, Leg Pain, Foot Pain, Other. Physical Exam Vital Signs / I&Os Vital Signs Date Time Temp Pulse Resp B/P Pulse O2 O2 Flow FiO2 Ox Delivery Rate 01/01 1545 2.0 01/01 1436 97.5 81 20 119/68 100 Nasal 2.0 Cannula 01/01 1051 98.1 80 20 117/70 98 Nasal 2.0 Cannula 01/01 0855 97.5 77 20 113/77 99 Nasal 2.0 Cannula 01/01 0800 2.0 01/01 0752 2.0 01/01 0227 98.1 73 20 124/85 99 Nasal 2.0 Cannula 12/31 2344 Nasal 2.0 Cannula 12/31 2227 97.3 79 20 121/72 100 Nasal 2.0 Cannula 12/31 2109 2.0 12/31 1808 2.0 12/31 1808 97.9 113 20 121/79 100 Nasal 2.0 Cannula I&O 12/31 0800 12/31 1600 01/01 0000 Intake Total 330 748 Output Total 728 350 325 Balance -398 -350 423 General Appearance Alert, Cooperative, No acute distress HEENT Atraumatic, PERRLA, Moist mucous membranes Lungs Clear to auscultation, Normal air movement Cardiovascular Regular rate and rhythm, Normal S1 and S2 Abdomen Normal bowel sounds, No tenderness (- peg site looks good ) Extremities -generalized edema Skin No Rashes Assessment and Plan Problem List 1. Gastric ulcer Plan - will continue with ppis and carafate - will avoid po feeds for the time being secondary to the inflammation 2. Persistent vomiting Plan - secondary to gastric inflammation - unable to keep anything down po - will continue with the feeding tube 3. Diarrhea Plan - p[t has continual diarrhea - will stop reglan and continue with immodium 4. CKD (chronic kidney disease) stage 3, GFR 30-59 ml/min Status Chronic Onset Date Unknown Plan - stable
--- NOTE | 2017-01-01 21:08 | NUR ---
PATIENT IS ALERT AND ORIENTED, HE IS A LITTLE FORGETFULT THROUGHOUT THE DAY. NO C/O N/V/ PAIN CURRENTLY. ON TELE, LUNG SOUNDS DIMINISHED THROUGHOUT, BOWEL TONES PRESENT IN ALL QUARDRANTS. SORE ON COCXY, DRESSING C/D/I. PATIETN HAS BEEN MOVING AROUND, BEEN WEARING SCDS EARLIER.
--- NOTE | 2017-01-01 22:45 | NUR ---
CALLED DR. RIGGINS AND HE SAID TO MAKE SURE PATIENTS IS WEARING SCDS. PATIENT HAS SCDS ON NOW.
[2017-01-02] VITALS (9 sets, daily range): BP systolic 105–126; BP diastolic 62–79
--- NOTE | 2017-01-02 06:42 | NUR ---
Pt did not sleep during the night, watched movies and was restless when movies were not on. Pt had many episodes of brief tachycardia, none lasted more than 30 sec, but did get up into high 140s. This was usually when pt care was being done or he was moving around. Pt complained of chest pain, morphine given, pain improved. Pt turned q2 hours. Besides HR, other VSS on 2L nc. Earlier in the shift pt complained of difficulty breathing. All vitals were WNL, but respirations were increased and lungs sounded wheezy. RT called and breathing treatment given. Pt tolerated continuous feeds well. Zero amount for residuals when drawn. Meds given through PEG tube.
--- NOTE | 2017-01-02 11:37 | NUR ---
pt unable to be seen d/t high census. will ck bk 01-03-17
--- NOTE | 2017-01-02 12:40 | NUR ---
In to see patient, dressing change completed to 2 Pressure injuries stage 3 to coccyx. Old dressing removed, wound bases remain pale pink/cream, evidence of some maceration on smaller wound. Both wounds cleansed with NS, barrier cream then applied around both periwound areas for protection and treatment of maceration. Therahoney applied to wound bases, covered with Adaptic cut to fit over wounds, Sacrum foam dressing applied over top. Pt tolerated well. Pts heels are red, blanchable. Aggressive prevention measures in place, feet being raised on WAFFLE overlay and pillows for complete offloading. WIll continue to monitor.
--- NOTE | 2017-01-02 16:36 | Progress Note ---
Subjective General Pt doing well today, patient is communicating more and is asking me when can he go home. Patient is otherwise stable. Constitutional Denies: Fever, Chills, Sweats, Weakness, Malaise, Other. Respiratory Denies: Cough, Dry, SOB w/exertion, Wheezing, Hemoptysis, Pleuritic Pain, Sputum , Other. Cardiovascular Edema. Denies: Chest Pain, Palpitations, Orthopnea, PND, Light-headedness, Other. Gastrointestinal Diarrhea. Denies: Nausea, Vomiting, Abdominal Pain, Constipation, Melena, Hematochezia, Other. Genitourinary Denies: Dysuria, Frequency, Incontinence, Hematuria, Retention, Other. Musculoskeletal Denies: Neck Pain, Shoulder Pain, Arm Pain, Back Pain, Hand Pain, Leg Pain, Foot Pain, Other. Neurological Denies: Weakness, Numbness, Incoordination, Change in speech, Confusion, Seizures, Other. Physical Exam Vital Signs / I&Os Vital Signs Date Time Temp Pulse Resp B/P Pulse O2 O2 Flow FiO2 Ox Delivery Rate 01/02 1612 1.0 01/02 1425 98.2 94 18 105/69 98 Nasal 1.0 Cannula 01/02 1405 1.0 01/02 1020 97.5 86 16 108/76 98 Nasal 2.0 Cannula 01/02 0931 2.0 01/02 0845 2.0 01/02 0816 97.5 88 22 112/62 99 Nasal 2.0 Cannula 01/02 0449 97.9 78 22 112/78 100 Nasal 2.0 Cannula 01/02 0240 97.5 84 20 113/66 98 Nasal 2.0 Cannula 01/02 0140 2.0 01/02 0005 Nasal 2.0 Cannula 01/01 2233 98.2 87 20 113/84 99 Nasal 2.0 Cannula 01/01 2122 2.0 01/01 1855 84 119/73 01/01 1820 97.9 89 20 116/77 100 Nasal 2.0 Cannula I&O 01/01 0800 01/01 1600 01/02 0000 Intake Total 0 40 0 Output Total 295 500 604 Balance -035 -369 -641 General Appearance Alert, No acute distress HEENT Atraumatic, PERRLA, Moist mucous membranes Lungs Clear to auscultation, Normal air movement Cardiovascular Regular rate and rhythm, No murmurs, gallops, rubs Abdomen Soft, No tenderness Extremities diffuse edema present Psych/Mental Status Mental status normal, Mood normal LAB Results Laboratory Tests 01/02 0735 Chemistry Prealbumin Pending Assessment and Plan Problem List 1. Gastric ulcer Plan - Pt has evidence of gastric ulcer on endoscopy - will c/w bid ppis and carafate - will continue as out patient as well 2. Persistent vomiting Plan - Pt has not had any vomiting symptoms since PEG tube was placed - Pt has not been having any nausea either - will continue with tube feeds - will start bolus feeds today, to see if patient can tolerate it 3. Diarrhea Plan - Pt has persistent diarrhea creating malabsorption - Pt has low overall protein and low albumin as a result - will continue to treat with immodium - will look for other modalities to treat him with 4. CKD (chronic kidney disease) stage 3, GFR 30-59 ml/min Status Chronic Onset Date Unknown Plan - stable 5. UTI (urinary tract infection) Status Acute Onset Date Unknown Plan - treatment is complete
--- NOTE | 2017-01-02 18:58 | NUR ---
PATIENT IS ALERT AND ORIENTED, HE IS A LITTLE FORGETFUL THROUGHOUT THE DAY, HE IS CURRENTLY SITTING UP IN BED NOW WITH SCDS ON. DRESSIGNS C/D/I ON FEEDING TUBE. NO C/O N/V OR PAIN AT THE MOMENT. LUNGS DIMINISHED THROUGHOUT. HR BEEN TACHY TODAY WHILE MOVING AROUND IN BED, THEN GOES BACK DOWN. CALL LIGHT WITHIN REACH. DAUGHTER BEEN SITTING AT BEDSIDE THROUGHOUT DAY.
--- NOTE | 2017-01-02 22:52 | NUR ---
TOLD DR. BRENNAN THAT PATIENT HAS BEEN TACHY TODAY. NO C/O OF SOB, NO C/P CHEST PAIN OR N/V. NO C/O PAIN. THROUGHOUT THE DAY.
[2017-01-03 02:15] VITALS: BP 112/64
[2017-01-03 07:04] VITALS: BP 104/70
--- NOTE | 2017-01-03 09:29 | NUR ---
pt completed supine to sit CGA->Min A d/t somnolence. Once sitting pt needed v/c for upright body positioning. pt completed sit to stand using a FWW Min A. pt maintained standing position with only CGA to maintain balance. pt had a 3 min seated break and then stood again using Min A. pt completed step pivot transfer to the chair. pt left in chair with call liu within reach.
--- NOTE | 2017-01-03 10:02 | NUR ---
pt very somnolent but able to be aroused to complete step pivot transfer back to bed. pt completed sit to stand Mod Ax2 using FWW. 2PA for sit to supine. pt left with call liu in place and DTR in room. Education given for use of gait belt at home. pt is continued to be recommended to d/c to SNF with PT and OT for strength training but pt is refusing. per EMR pt will have hospital bed and 24/7 support from DTR. HHPT is recommended and DTR educated on safety of transfers. Will continue to follow.
--- NOTE | 2017-01-03 10:21 | NUR ---
NUTRITION FOLLOW UP NOTE: This RD continues to communicate with home infusion on helping pt qualify for a pump, have explored several methods of enteral nutrition delivery with MD, family and multidiciplinary team. Multiple phone conversations with home infusion intake staff and home infusion RDs on qualifying for enteral pump and approprite formula for pt. Upon review of pts enteral formula, does not appear to be any ingredients that exacerbate diarrhea. Home ifusion Certified nutrition support dietitian recommended Isorsource for this pt given diarrhea which is what is currently running. Will continue to work with staff on these items and communicate with all professional involved in this patients care and transition to home as pt desires.
[2017-01-03 10:51] VITALS: BP 97/67
[2017-01-03 14:18] VITALS: BP 107/74
--- NOTE | 2017-01-03 15:49 | Progress Note ---
Subjective General Pt seen and examined today, patient is tired throughout the day secondary to the pain medicaiton we were giving him yesterday. Patient is otherwise stable with no acute events noted Constitutional Denies: Fever, Chills, Sweats, Weakness, Malaise, Other. Respiratory Denies: Cough, Dry, SOB w/exertion, Wheezing, Hemoptysis, Pleuritic Pain, Sputum , Other. Cardiovascular Denies: Chest Pain, Palpitations, Orthopnea, PND, Edema, Light-headedness, Other. Gastrointestinal Diarrhea. Denies: Nausea, Vomiting, Abdominal Pain, Constipation, Melena, Hematochezia, Other. Genitourinary Denies: Dysuria, Frequency, Incontinence, Hematuria, Retention, Other. Musculoskeletal Denies: Neck Pain, Shoulder Pain, Arm Pain, Back Pain, Hand Pain, Leg Pain, Foot Pain, Other. Physical Exam Vital Signs / I&Os Vital Signs Date Time Temp Pulse Resp B/P Pulse O2 O2 Flow FiO2 Ox Delivery Rate 01/03 1418 97.7 81 18 107/74 98 Nasal 2.0 Cannula 01/03 1343 2.0 01/03 1051 97.3 94 22 97/67 99 Nasal 1.0 Cannula 01/03 0755 1.0 01/03 0704 97.0 90 24 104/70 99 Nasal 2.0 Cannula 01/03 0215 98.1 72 16 112/64 98 Nasal 2.0 Cannula 01/03 0031 Nasal 2.0 Cannula 01/02 2317 106 126/76 100 Nasal 2.0 Cannula 01/02 2246 97.9 69 18 121/75 97 Nasal 2.0 Cannula 01/02 2053 2.0 01/02 2049 97.5 65 18 108/69 98 Nasal 1.0 Cannula 01/02 1738 97.5 82 18 112/79 99 Nasal 1.0 Cannula 01/02 1612 1.0 I&O 01/02 0800 01/02 1600 01/03 0000 Intake Total 600 700 Output Total 363 450 700 Balance 237 250 -700 General Appearance Alert, Cooperative, No acute distress HEENT Atraumatic, PERRLA, Moist mucous membranes Lungs Normal exam Neck Supple, No JVD, No thyromegaly Cardiovascular Normal exam, - diffuse edema Abdomen Soft, No tenderness Extremities No clubbing, No edema, Normal pulses Skin No Rashes Neurological Normal exam Assessment and Plan Problem List 1. Gastric ulcer Plan - stable - no issues noted - will continue with medication - pt will need to remain on tube feeds for the next 3 weeks for ulcer to heal - family will reassess in 3 weeks to see it patient can tolerate po feeds 2. Persistent vomiting Plan - no vomiting since feeding tube was placed 3. CKD (chronic kidney disease) stage 3, GFR 30-59 ml/min Status Chronic Onset Date Unknown Plan - stable 4. Diarrhea Plan - Pt is having continual diarrhea - will add lomotil to medicaiton regimen - will look for improvement
[2017-01-03 17:33] VITALS: BP 95/60
--- NOTE | 2017-01-03 19:22 | NUR ---
PATIENT IS ALERT AND ORIENTED, NO C/O N/V. HAS HAD SOME PAIN THROUGHOUT THE DAY, HAS BEEN VERY SLEEPY WELL THROUGHOUT THE DAY. HEART RATE CURRENTLY 88. VSS THROUGHOUT THE DAY. NO C/O CHEST PAIN. NO C/O SOB. BOWEL TONES PRESENT ALL QUARDRANTS. BEEN GIVING HIM HIS CONTINUOUS TUBE FEEDING, FLUSHING WITH 30CC WATER BEFORE AFTER MEDICATINS. AND HAVE BEEN DOING THE ORDERED DOES OF WATER BOULUS OVER LAST CUPPLE DAYS OF 100CC 3X/DAY.
--- NOTE | 2017-01-03 19:32 | NUR ---
HELD PATIENTS MEDICATION TODAY, [facility] PHYSICIAN ASSISTANT SAID IT WAS OK TO HOLD MEDICATION B/C PATIENT HAS BEEN VERY SLEEPY TODAY.
--- NOTE | 2017-01-03 21:17 | NUR ---
GAVE 100CC BOLUS WATER PER ORDER.
[2017-01-03 22:48] VITALS: BP 92/96
--- NOTE | 2017-01-04 | NUR ---
RESTING IN BED, TF ISOSOURCE HN @ 40 CC/PUMP INFUSING TO PEG TUBE. TELE AFIB HR 88, RECTAL TUBE IN PLACED. DENIES ANY PAIN AT THIS TIME.
[2017-01-04 02:40] VITALS: BP 103/77
[2017-01-04 07:37] VITALS: BP 91/58
--- NOTE | 2017-01-04 09:50 | NUR ---
PEG TUBE C/D/I, FEEDING INFUSING PER PUMP. PHYSICAL THERAPY IN ROOM. RECTAL TUBE IN PLACE. WILL CONTINUE TO MONITOR.
--- NOTE | 2017-01-04 10:28 | NUR ---
pt supine in bed and agreeable to skilled PT intervention. pt completed supine to sit CGA with HOB elevated 30degrees. Once sitting pt required v/c to maintain upright position as he tends to lean onto his left elbow. pt completed sit to stand using a FWW Min A. Took side steps towards the HOB and then sat down. pt worked on sitting balance [id number] and requested to lay down. pt completed 5 more sit to stands at the EOB and then completed sit to supine Min A to A with BLE to clear bed. Supine exercises x7 reps of the following: resistive knee/hip flexion/extension; quad sets, glute sets, ankle pumps. Sheet of exercises left with instruction to completed at least one more time today.
[2017-01-04 11:22] VITALS: BP 105/65
[2017-01-04 14:34] VITALS: BP 95/58
--- NOTE | 2017-01-04 15:49 | NUR ---
In to see patient for dressing change, old dressin removed which was saturated near distal portion of dressing, most likely from drainage around rectal tube. Upon assessment, wounds appear the same, with both some maceration and dryness to periwound skin in different areas. Both wounds cleansed well with NS. Therahoney applied to wound bases, covered with adaptic to keep Therahoney in place, calazime withheld at this time due to dryness, Mepilex Border sacrum foam placed over wounds to protect and control drainage, maceration. Positioned up higher over wounds as to hopefully prevent drainage from rectal tube going into dressing. Pt needs to have appointment at the [facility] after discharge, call placed to [facility] to schedule appt, message recorder on , left message informing of need for appt. Suggest that if maceration develops from Therahoney, that therahoney and adaptic be discontinued and soley use foam dressing until seen at the [facility]. Patient on WAFFLE mattress, positioned on right side, offloading sacrum, Barrier cream applied to skin around rectal tube to prevent irritation as had some leaking. Pt tolerated procedure well, will continue to monitor. and tolerated procedure well.
--- NOTE | 2017-01-04 16:04 | NUR ---
NUTRITION FOLLOW UP NOTE: Pt diarrhea improving per nsg. Tolerating tube feeding formula as well per nsg. Pt to d/c home in the next few days with feeding pump and home infusion svs. Goal is for pt to meet ~100% estimated nutrition needs and followed by home infusion RD. RD avail for further consult prn.
--- NOTE | 2017-01-04 18:12 | Progress Note ---
Subjective General Pt seen and examined. Patient has no complaints at the moment. Patients stool is starting to form up better than previously. Constitutional Denies: Fever, Chills, Sweats, Weakness, Malaise, Other. Eyes Denies: Pain, Vision Change, Conjunctival Inflammation, Eyelid Inflammation, Redness, Other. ENT Denies: Ear Pain, Ear Discharge, Nose Pain, Nasal Discharge, Nasal Congestion, Mouth Pain, Mouth Swelling, Throat Pain, Throat Swelling, Other. Respiratory Denies: Cough, Dry, SOB w/exertion, Wheezing, Hemoptysis, Pleuritic Pain, Sputum , Other. Cardiovascular Edema. Denies: Chest Pain, Palpitations, Orthopnea, PND, Light-headedness, Other. Gastrointestinal Denies: Nausea, Vomiting, Abdominal Pain, Diarrhea, Constipation, Melena, Hematochezia, Other. Genitourinary Denies: Dysuria, Frequency, Incontinence, Hematuria, Retention, Other. Musculoskeletal Denies: Neck Pain, Shoulder Pain, Arm Pain, Back Pain, Hand Pain, Leg Pain, Foot Pain, Other. Skin Denies: Rash, Lesions, Jaundice, Bruising, Other. Neurological Denies: Weakness, Numbness, Incoordination, Change in speech, Confusion, Seizures, Other. Physical Exam Vital Signs / I&Os Vital Signs Date Time Temp Pulse Resp B/P Pulse O2 O2 Flow FiO2 Ox Delivery Rate 01/04 1434 97.5 93 20 95/58 96 Nasal 1.0 Cannula 01/04 1122 98.1 95 20 105/65 100 Nasal 1.0 Cannula 01/04 0945 1.0 01/04 0828 1.0 01/04 0737 98.1 79 18 91/58 100 Nasal 1.0 Cannula 01/04 0300 Nasal 1.0 Cannula 01/04 0240 98.1 93 18 103/77 100 Nasal 1.0 Cannula 01/03 2248 98.1 89 16 92/96 99 Nasal 1.0 Cannula 01/03 1958 1.0 I&O 01/03 0800 01/03 1600 01/04 0000 Intake Total 789 320 Output Total 970 1100 875 Balance -192 -237 -603 General Appearance Alert, No acute distress HEENT Normal exam Lungs Normal exam Neck Supple, No JVD Cardiovascular Regular rate and rhythm, Normal S1 and S2 Abdomen Normal bowel sounds, Soft Extremities No clubbing, No tenderness, - bialteral edema Neurological Normal speech, Sensation intact LAB Results Laboratory Tests 01/04 0600 Chemistry Plasma Sodium (136 - 145 mmol/L) 139 Plasma Potassium (3.5 - 5.1 mmol/L) 4.5 Plasma Chloride (98 - 107 mmol/L) 106 CO2 (Enzymatic) (21 - 32 mmol/L) 26 BUN (7 - 18 mg/dL) 28 Creatinine (0.6 - 1.3 mg/dL) 1.4 Est GFR ( Amer) (mL/min) >60 Est GFR (Non-Af Amer) (mL/min) 51.96 Glucose (70 - 110 mg/dL) 110 Plasma Calcium (8.5 - 10.1 mg/dL) 8.0 Total Bilirubin (0.0 - 1.0 mg/dL) 0.5 AST (15 - 37 U/L) 19 ALT (12 - 78 U/L) 11 Alkaline Phosphatase (46 - 116 U/L) 122 Total Protein (6.4 - 8.2 g/dL) 5.0 Albumin (3.3 - 5.0 g/dL) 2.1 Hematology WBC (4.5 - 11.5 K/uL) 6.0 RBC (4.50 - 5.90 M/uL) 2.82 Hgb (13.5 - 17.5 gm/dL) 8.4 Hct (41.0 - 53.0 %) 25.6 MCV (80 - 100 fL) 91 MCH (26 - 34 pg) 30 RDW (11.6 - 14.8 %) 17.3 Neut % (Auto) (50 - 75 %) 61.2 Lymph % (Auto) (25 - 40 %) 21.6 [place] % (Auto) (3 - 14 %) 16.2 Eos % (Auto) (0 - 4 %) 0.6 Baso % (Auto) (0 - 2 %) 0.4 Plt Count, EDTA (150 - 400 K/uL) 139 PUBS MCHC (31 - 37 g/dL) 33 Assessment and Plan Problem List 1. Gastric ulcer Plan - will continue with bid ppis and carafate - will keep feeds with peg tube - will monitor for improvement 2. Nausea and vomiting Status Acute Onset Date Unknown Plan - no vomiting since feeding tube was placed 3. CKD (chronic kidney disease) stage 3, GFR 30-59 ml/min Status Chronic Onset Date Unknown Plan - stable 4. UTI (urinary tract infection) Status Acute Onset Date Unknown Plan - resolved - antibiotics completed 5. Diarrhea Status Chronic Onset Date Unknown Plan - pts diarrhea slowed down immensely with immodium and lamotil - will continue to monitor
[2017-01-04 18:20] VITALS: BP 101/75
[2017-01-04 22:09] VITALS: BP 107/62
--- NOTE | 2017-01-04 23:00 | NUR ---
patient has been wide awake so far and has requested pain meds for his shoulder. Continuous PEG feeding running at 55 mls/hr. Due PEG flushes done. He is to be turned and check periodically during the night as he can be incontinent at times. Rectal tube still in place and draining good amounts of semi solid stools.
[2017-01-05 02:00] VITALS: BP 110/63
[2017-01-05 06:46] VITALS: BP 105/74
[2017-01-05 11:05] VITALS: BP 98/72
--- NOTE | 2017-01-05 12:35 | NUR ---
PLACED NEW COLLECTION BAG ON RECTAL TUBE TO ASSESS FOR CONTINUANCE OF DIARRHEA
[2017-01-05 14:43] VITALS: BP 106/79
--- NOTE | 2017-01-05 16:42 | Progress Note ---
Subjective General Pt seen and examined, patient doing well today without any acute events overnight. Patient has been having minimal amounts of diarrhea. Will continue to monitor. Constitutional Denies: Fever, Chills, Sweats, Weakness, Malaise, Other. Eyes Denies: Pain, Vision Change, Conjunctival Inflammation, Eyelid Inflammation, Redness, Other. ENT Denies: Ear Pain, Ear Discharge, Nose Pain, Nasal Discharge, Nasal Congestion, Mouth Pain, Mouth Swelling, Throat Pain, Throat Swelling, Other. Cardiovascular Denies: Chest Pain, Palpitations, Orthopnea, PND, Edema, Light-headedness, Other. Gastrointestinal Denies: Nausea, Vomiting, Abdominal Pain, Diarrhea, Constipation, Melena, Hematochezia, Other. Musculoskeletal Neck Pain, Back Pain. Denies: Shoulder Pain, Arm Pain, Hand Pain, Leg Pain, Foot Pain, Other. Physical Exam Vital Signs / I&Os Vital Signs Date Time Temp Pulse Resp B/P Pulse O2 O2 Flow FiO2 Ox Delivery Rate 01/05 1443 97.9 81 20 106/79 92 Room Air 01/05 1105 97.5 85 20 98/72 92 Room Air 01/05 0828 Room Air 01/05 0801 1.0 01/05 0646 98.4 149 20 105/74 90 Nasal 1.0 Cannula 01/05 0200 97.9 52 16 110/63 93 Nasal 1.0 Cannula 01/04 2209 97.5 56 24 107/62 92 Nasal 1.0 Cannula 01/04 2034 1.0 01/04 2000 1.0 01/04 1820 97.7 73 20 101/75 96 Nasal 1.0 Cannula I&O 01/04 0800 01/04 1600 01/05 0000 Intake Total 740 500 416 Output Total 597 225 575 Balance 143 275 -159 General Appearance Cooperative, No acute distress Lungs Clear to auscultation, Normal air movement Cardiovascular Normal S1 and S2, No murmurs, gallops, rubs Abdomen Soft, No tenderness, No guarding Extremities Normal pulses, -diffuse edema Skin No Rashes Assessment and Plan Problem List 1. Diarrhea Plan - currently slowed down significantly - will continue to monitor - will c/w lamotil and immodium 2. Nausea and vomiting Status Acute Onset Date Unknown Plan - no vomiting since feeding tube was placed - will continue to place food via feeding tube - will continue with Isosource 50 ml/hour - pt currently on 150 ml flushes of free water qid, will need to increase gradually until patient is taking in 800 ml free water daily 3. Gastric ulcer Plan - c/w protonix and carafate 4. CKD (chronic kidney disease) stage 3, GFR 30-59 ml/min Status Chronic Onset Date Unknown 5. UTI (urinary tract infection) Status Acute Onset Date Unknown Plan - therapy completed - no further antibiotics
[2017-01-05 18:31] VITALS: BP 100/78
--- NOTE | 2017-01-05 20:17 | NUR ---
PATIENT APPEARS TIRED TONIGHT. HE WAS RESUMED ON O2 AT 2LPMMAS SATURATING TO LOW 90s ON ROOM AIR. PEG FEEDING ON CONTINUOUS DELIVERY AND IS DUE FLUSHES SOON. RECTAL TUBE IN PLACE. ORAL CARE DELIVERED.
[2017-01-05 22:24] VITALS: BP 105/76
[2017-01-06] VITALS (7 sets, daily range): BP systolic 83–105; BP diastolic 49–76
--- NOTE | 2017-01-06 07:45 | Progress Note ---
Subjective General Note Date: January 06, 2017 Admission Date: December 24, 2016 Hospital Day: 14 PCP: Twin Mar M.D. Status: Inpatient Advanced Directive: Full code Room: 202 Brief History: The patient is a 81-year-old white male with a significant past medical history of abdominal aortic aneurysm, chronic anemia, chronic renal insufficiency, degenerative joint disease, coronary disease, hypertension, peripheral arterial disease, chronic pain, generalized anxiety disorder, who presented to [facility] emergency room on the day of admission secondary to complaints of nausea, diarrhea, and weakness. ER evaluation was consistent with pneumonia, hypertension, anemia, renal insufficiency. Secondary to the above, the patient was admitted by Vincent Pruitt M.D. for further evaluation and treatment. For other history present illness, past medical history, family history, social history, review of systems, and admission physical examination please see the patient's history and physical examination and ER visit note in the patient's medical record. Subjective: The patient voices no specific complaints today. Continue loose stool but improved. Patient requests: No specific Medications and Allergies Medications Current Medications Sig/Dena Start time Last Medication Dose Route Stop Time Status Admin Oxycodone HCl 5 MG ONCE 01/05 1630 AC 01/05 PTUBE 1700 Tramadol HCl 25 MG Q6H PRN 01/05 1215 AC 01/06 PTUBE 0427 Diphenoxylate HCl/ 1 TAB QID 01/03 1230 AC 01/06 Atropine PTUBE 0601 Baclofen 5 MG TID 01/02 2200 AC 01/06 PTUBE 0601 Gabapentin 300 MG TID 01/02 2200 AC 01/06 PTUBE 0601 Sertraline HCl 100 MG DAILY 01/02 1900 AC 01/05 PTUBE 0827 Furosemide 20 MG DAILY 01/01 1400 AC 01/05 PTUBE 0827 Diltiazem HCl 30 MG Q6HR 12/31 1800 AC 01/06 PTUBE 0029 Lansoprazole 30 MG PPIBID 12/31 1600 AC 01/06 PTUBE 0601 Loperamide HCl 2 MG Q2H PRN 12/31 1215 AC 01/03 PTUBE 1827 Sucralfate 1 GM Q6HR 12/28 1200 AC 01/06 PTUBE 0601 Nicotine 21 MG DAILY 12/24 1915 AC 01/05 TOP 0827 Albuterol/Ipratropium 3 ML RTQ6H PRN 12/24 1800 AC 01/02 IN 1404 Allergies Coded Allergies: Sulfa Drugs (Intermediate, HIVES 03/20/16) Morphine (Intermediate, ITCHY & CRAZY 03/20/16) Physical Exam Vital Signs / I&Os Vital Signs Date Time Temp Pulse Resp B/P Pulse O2 O2 Flow FiO2 Ox Delivery Rate 01/06 0703 98.2 14 83/59 96 Nasal 2.0 Cannula 01/06 0245 66 18 92/66 95 Nasal 2.0 Cannula 01/05 2224 96.4 81 20 105/76 95 Nasal 1.0 Cannula 01/05 2004 Nasal 1.0 Cannula 01/05 1917 1.0 01/05 1831 97.9 66 20 100/78 90 Room Air 01/05 1443 97.9 81 20 106/79 92 Room Air 01/05 1105 97.5 85 20 98/72 92 Room Air 01/05 0828 Room Air 01/05 0801 1.0 I&O 01/06 0000 01/05 1600 01/05 0800 Intake Total 986 100 860 Output Total 200 950 300 Balance 786 -850 560 General Appearance Cooperative, No acute distress, lethargic Lungs Normal air movement, Scattered rhonchi. Cardiovascular Normal S1 and S2, Irregular rhythm, rate control Abdomen Normal bowel sounds, Soft, No tenderness, PEG tube in place Extremities No cyanosis, No clubbing, Edema unchanged Neurological Cranial nerves intact, No lateralizing signs Psych/Mental Status Mood normal, slightly lethargic LAB Results Laboratory Tests 01/06 0630 Chemistry Plasma Sodium (136 - 145 mmol/L) 133 Plasma Potassium (3.5 - 5.1 mmol/L) 5.0 Plasma Chloride (98 - 107 mmol/L) 101 CO2 (Enzymatic) (21 - 32 mmol/L) 27 BUN (7 - 18 mg/dL) 31 Creatinine (0.6 - 1.3 mg/dL) 1.2 Est GFR ( Amer) (mL/min) >60 Est GFR (Non-Af Amer) (mL/min) >60 Glucose (70 - 110 mg/dL) 120 Plasma Calcium (8.5 - 10.1 mg/dL) 7.5 Hematology WBC (4.5 - 11.5 K/uL) 5.8 RBC (4.50 - 5.90 M/uL) 2.64 Hgb (13.5 - 17.5 gm/dL) 7.8 Hct (41.0 - 53.0 %) 23.9 MCV (80 - 100 fL) 90 MCH (26 - 34 pg) 30 RDW (11.6 - 14.8 %) 17.5 Neut % (Auto) (50 - 75 %) 69 Lymph % (Auto) (25 - 40 %) 16 [place] % (Auto) (3 - 14 %) 9 Eos % (Auto) (0 - 4 %) 1 Baso % (Auto) (0 - 2 %) 0 Band Neutrophils % (0 - 8 %) 4 Metamyelocytes % (0 - 1 %) 1 Myelocytes (0 - 1 %) 0 Other Cell Type 0 Plt Count, EDTA (150 - 400 K/uL) 152 Hypochromic-Microcytic 1+ Poikilocytosis (manual 1+ Anisocytosis (manual) 1+ Microcytosis (manual) 1+ Ovalocytes 1+ PUBS MCHC (31 - 37 g/dL) 33 Assessment and Plan Problem List 1. Pneumonia Plan -Resolved -Afebrile, normalized white count -Monitor 2. UGI bleed Plan -Patient with findings of peptic ulcer disease -Continue with Protonix/Carafate -Persistent anemia -Monitor 3. Anemia Plan -Patient with progressive anemia -Transfuse 2 units packed RBCs over 3 hours each -Monitor -H&H 7.8/23.9 today 4. Diarrhea Status Chronic Onset Date Unknown Plan -Patient with persistent diarrhea. -We'll add Benefiber to PEG tube feedings in a.m., discussed with pharmacy. -Monitor 5. UTI (urinary tract infection) Status Acute Onset Date Unknown Plan -Resolved 6. CKD (chronic kidney disease) stage 3, GFR 30-59 ml/min Status Chronic Onset Date Unknown Plan -Stable -BUN and creatinine 31/1.2 -Monitor Current status: Fair, improved Anticipated discharge date: Anticipated discharge in 1-2 days Anticipated discharge placement: Home Patient care time: Time spent in chart review, patient interview, physical exam, CPOE, and care documentation: 25 minutes Visit to patient today: 1 Complexity of care: Moderate E&M Codes Rounding: Inpt-Moderate/[id number]
--- NOTE | 2017-01-06 13:48 | NUR ---
RECTAL TUBE OOZING LOOSE STOOL. RECTAL TUBE REMOVED PER DR RIGGINS AT 1340. WHEN REMOVED, PT OOZED LOOSE STOOL. PT CHANGED/CLEANED. CHANGED MEPILEX. APPLIED BARRIER CREAM. RECTUM AND COCCYX PINK. WILL CHECK ON PT FREQUENTLY.
[2017-01-07] VITALS (12 sets, daily range): BP systolic 93–110; BP diastolic 54–79
--- NOTE | 2017-01-07 05:39 | NUR ---
TOOK OVER CARE OF PT AROUND 0300. PT IS ALERT AND ABLE TO COMMUNICATE NEEDS AND USE CALL LIGHT APPROPRIATELY. C/O BACK PAIN WHICH WAS BEING MANAGED WITH TRAMADOL AND CHANGE OF POSITION. ALL MEDS ARE BEING CRUSHED AND GIVEN VIA PEG TUBE. MEPILEX ON L BUTTOCK FOR STAGE 2 PRESSURE ULCER IS CDI. PT REFUSED 1 POSITION CHANGE. DENIES SOB, NAUSEA OR CP. HR RANGE IS 80-120'S. FLUSED WITH 100 ML OF WATER POST BATCH AND FURNACE OPERATOR AND PT TOLERATED WELL. NO DIARRHEA DISPLAYED OF YET. VSS, LUNGS DIMINISHED. WCTM.
--- NOTE | 2017-01-07 06:47 | NUR ---
AROUND 0550 PT WAS FOUND WITH FECAL MATTER COVERING WHOLE BODY, BEDSIDE URINAL AND TABLE. CLEANED PT, CHANGED LINENS AND PROVIDED PEG TUBE MEDS. FLUSHED WITH 100 ML WATER WELL. MEPILEX CONTAINED SMALL AMOUNT OF FECAL MATTER SO IT WAS LEFT IN PLACE. RESIDUALS HAVE BEEN ZERO.
--- NOTE | 2017-01-07 09:35 | NUR ---
PATIENT SITTING UP IN BED AND TURN Q 2 HOURS. USES A VERA LIFT TO GET UP TO CHAIR. 1 UNIT PRBC'S ORDERED AND HUNG BY THIS RN. INFUSING WNL. CONSENT RECEIVED FROM PATIENT. TUBE FEEDING RUNNING W/O PROBLEMS @ 55C'S/HR CONTINUOUS. 5CC'S ONLY RESIDUAL FROM TF. SEE SHIFT ASSESSMENT FOR FURTHER DETAILS.
--- NOTE | 2017-01-07 09:54 | NUR ---
NUTRITION FOLLOW UP NOTE: Pt continues on Isosource with was initially recommended by home infusion RD 2/2 pt with diarrhea. Isosource running at 55 mls per hour continuous and flushes are 100 mls qid, 30 mls before and after med administration. Pts rectal tube out over the weekend and pt having increased episodes of diarrhea. Will continue to communicate with multidiciplinary team, home infusion, etc. Pt likely to d/c soon when diarrhea manageable for family at home. Rev'd labs, rec check BNP, last BNP was 2/ secondary to wt gain and noted sodium level 132? RD to follow closely.
--- NOTE | 2017-01-07 11:08 | NUR ---
No PT d/t High census. Will ck bk 2
--- NOTE | 2017-01-07 14:23 | NUR ---
In to see patient, recheck on stage 3 pressure ulcers to coccyx x2. Picture taken,please see Photographic wound assessment sheet. Please see dressing documentation-Pt has had rectal tube removed, to get ready for possible discharge soon, pt is still having diarrhea though, which has been complicating dressings to the coccyx area. Decision made to place Hydrocolloid dressing at this time, to cover and secure area, barrier to germs and stool, maintain proper wound moisture. Dressing placed, adhered with some Mastisol as well to ensure adhesion, even with moisture. Pt tolerated procedure well, spoke with daughter, and explained challenges with patient, pt most comfortable on his back, is allowing some position changes, but any pressure on the wounds inhibit healing.Nutrition is also a factor, daughter aware of all of this, and agrees with plan of care. Will continue to monitor.
--- NOTE | 2017-01-07 16:51 | NUR ---
I discussed with the patient their current medications, possible side effects, and answered questions.
--- NOTE | 2017-01-07 17:53 | NUR ---
PATIENT IS AWAKE NOW, HE IS AOX3 NOW, BUT SOMETIMES GETS FORGETFUL THOUGHOUT THE DAY. HIS PEG TUBE SITE IS C/D/I, BEEN MONITORING HIS WOUND ON HIS BOTTOM AREA. CURRENTLY DRESSING IS C/D/I. PATIENTS VSS, BOWEL TONES PRESENT ALL QUARDRANTS, LUNGS DIMINISHED THROUGHOUT. NO C.O SOB, NO C/O N/V OR CHSET PAIN. IN NO DISTRESS. WATCHING TV AND SPEAKING IN FULL SENTENCES NOW.B HAS SCDS ON TO PREVENT DVT.
--- NOTE | 2017-01-07 18:00 | NUR ---
BEEN TURNING EVERY HOUR TO PREVENT PRESSURE SORES.
--- NOTE | 2017-01-07 19:40 | Progress Note ---
Subjective General Patient with "pain with urination." will check UA
--- NOTE | 2017-01-07 19:40 | Progress Note ---
Subjective General Patient with "pain with urination." will check UA
--- NOTE | 2017-01-07 20:26 | NUR ---
NOTIFIED DR. BRENNAN REGARDING PATIETNS CRITICAL LAB VALUES. ALSO TOLD HIM PATIENT IS C/O PAIN ON URINATION. V/O TO GET URINALYSIS ON PT.
--- NOTE | 2017-01-07 22:36 | NUR ---
GAVE HIM HIS WATER BOLUS OF 100CC TONIGHT.
--- NOTE | 2017-01-07 22:49 | Progress Note ---
Subjective General Note Date: January 07, 2017 Admission Date: December 24, 2016 Hospital Day: 15 PCP: Twin Mar M.D. Status: Inpatient Advanced Directive: Full code Room: 202 Brief History: The patient is a 81-year-old white male with a significant past medical history of abdominal aortic aneurysm, chronic anemia, chronic renal insufficiency, degenerative joint disease, coronary disease, hypertension, peripheral arterial disease, chronic pain, generalized anxiety disorder, who presented to [facility] emergency room on the day of admission secondary to complaints of nausea, diarrhea, and weakness. ER evaluation was consistent with pneumonia, hypertension, anemia, renal insufficiency. Secondary to the above, the patient was admitted by Vincent Pruitt M.D. for further evaluation and treatment. For other history present illness, past medical history, family history, social history, review of systems, and admission physical examination please see the patient's history and physical examination and ER visit note in the patient's medical record. Subjective: The patient voices no specific complaints today. Continue loose stool but improved. No speciific complaints. Patient requests: No specific Medications and Allergies Medications Current Medications Sig/Dena Start time Last Medication Dose Route Stop Time Status Admin Sodium Chloride 250 ML .[FOR TRANSFUSION] 01/06 194 AC IV Oxycodone HCl 5 MG ONCE 01/05 1630 AC 01/05 PTUBE 1700 Tramadol HCl 25 MG Q6H PRN 01/05 1215 AC 01/07 PTUBE 191 Diphenoxylate HCl/ 1 TAB QID 01/03 1230 AC 01/07 Atropine PTUBE 2218 Baclofen 5 MG TID 01/02 2200 AC 01/07 PTUBE 2218 Gabapentin 300 MG TID 01/02 2200 AC 01/07 PTUBE 2218 Sertraline HCl 100 MG DAILY 01/02 1900 AC 01/07 PTUBE 0837 Furosemide 20 MG DAILY 01/01 1400 AC 01/07 PTUBE 0837 Diltiazem HCl 30 MG Q6HR 12/31 1800 AC 01/07 PTUBE 1740 Lansoprazole 30 MG PPIBID 12/31 1600 AC 01/07 PTUBE 1609 Loperamide HCl 2 MG Q2H PRN 12/31 1215 AC 01/07 PTUBE 1055 Sucralfate 1 GM Q6HR 12/28 1200 AC 01/07 PTUBE 1740 Nicotine 21 MG DAILY 12/24 1915 AC 01/07 TOP 0837 Albuterol/Ipratropium 3 ML RTQ6H PRN 12/24 1800 AC 01/06 IN 1356 Allergies Coded Allergies: Sulfa Drugs (Intermediate, HIVES 03/20/16) Morphine (Intermediate, ITCHY & CRAZY 03/20/16) Physical Exam Vital Signs / I&Os Vital Signs Date Time Temp Pulse Resp B/P Pulse O2 O2 Flow FiO2 Ox Delivery Rate 01/07 1910 98.1 100 20 103/69 96 Nasal 2.0 Cannula 01/07 1729 98.1 100 20 110/54 98 Nasal 2.0 Cannula 01/07 1615 2.0 01/07 1448 98.1 81 17 106/69 96 Nasal 2.0 Cannula 01/07 1339 98.2 92 18 100/71 90 Nasal 2.0 Cannula 01/07 1236 98.2 89 18 102/71 94 Nasal 2.0 Cannula 01/07 1208 98.8 67 18 98/68 96 Nasal 2.0 Cannula 01/07 1049 97.7 102 18 105/76 95 Nasal 2.0 Cannula 01/07 1001 2.0 01/07 0933 97.9 87 18 105/76 99 Nasal 2.0 Cannula 01/07 0818 97.9 94 18 99/62 95 Nasal 2.0 Cannula 01/07 0646 98.4 103 18 105/67 99 Nasal 2.0 Cannula 01/07 0159 97.3 132 20 93/71 98 Nasal 2.0 Cannula 01/06 2331 98.1 88 16 91/65 98 Nasal 2.0 Cannula I&O 01/07 0000 01/06 1600 01/06 0800 Intake Total 100 350 870 Output Total 150 475 300 Balance -50 -125 570 General Appearance Alert, Oriented X3, Cooperative, No acute distress Lungs Normal air movement, scattered rhonchi, no wheezes Cardiovascular Normal S1 and S2, irregular rhythm, rate controlled Abdomen Normal bowel sounds, Soft, No tenderness, PEG tube in place Extremities No cyanosis, No clubbing Psych/Mental Status Mental status normal, Mood normal, slight lethargy LAB Results Laboratory Tests 01/07 0755 Chemistry Plasma Sodium (136 - 145 mmol/L) 132 Plasma Potassium (3.5 - 5.1 mmol/L) 5.4 Plasma Chloride (98 - 107 mmol/L) 101 CO2 (Enzymatic) (21 - 32 mmol/L) 30 BUN (7 - 18 mg/dL) 33 Creatinine (0.6 - 1.3 mg/dL) 1.3 Est GFR ( Amer) (mL/min) >60 Est GFR (Non-Af Amer) (mL/min) 56.60 Glucose (70 - 110 mg/dL) 116 Plasma Calcium (8.5 - 10.1 mg/dL) 7.7 Hematology WBC (4.5 - 11.5 K/uL) 6.0 RBC (4.50 - 5.90 M/uL) 2.72 Hgb (13.5 - 17.5 gm/dL) 8.1 Hct (41.0 - 53.0 %) 24.6 MCV (80 - 100 fL) 90 MCH (26 - 34 pg) 30 RDW (11.6 - 14.8 %) 17.0 Neut % (Auto) (50 - 75 %) 64.2 Lymph % (Auto) (25 - 40 %) 17.1 [place] % (Auto) (3 - 14 %) 17.7 Eos % (Auto) (0 - 4 %) 0.7 Baso % (Auto) (0 - 2 %) 0.3 Plt Count, EDTA (150 - 400 K/uL) 165 PUBS MCHC (31 - 37 g/dL) 33 Assessment and Plan Problem List 1. Gastric ulcer Plan -stable -No evidence of ongoing bleeding -Continue Prevacid/Carafate -Monitor 2. Diarrhea Status Chronic Onset Date Unknown Plan -patient with persistent diarrhea in setting of tube feedings -Changed to a high-fiber tube feedings -Monitor 3. Nausea and vomiting Status Acute Onset Date Unknown Plan -resolved -Patient remains on tube feeding only. 4. CKD (chronic kidney disease) stage 3, GFR 30-59 ml/min Status Chronic Onset Date Unknown Plan -stable -Monitor 5. UTI (urinary tract infection) Status Acute Onset Date Unknown Plan -resolved 6. GI bleed Plan -Resolved -Continue with Carafate/Prevacid 7. COPD (chronic obstructive pulmonary disease) Plan -stable -Continue DuoNeb -Monitor 8. Pneumonia Plan -resolved -Afebrile, normal his white count Current Status: Fair, improved Anticipated Discharge: Anticipated discharge in 1-2 days Anticipated discharge placement: Home E&M Codes Rounding: Inpt-Moderate/[id number]
--- NOTE | 2017-01-08 00:14 | NUR ---
Pt. is resting in bed at this time. Alert and cooperative during care, but only oriented to self. continous TF fibersource HN at 55 mls/hr, pt. tolerating well, placement checked. Pt. denies pain at this time. Pt. does not know why he is in the hospital, reorients easily. Able to make needs known. Using urinal to void. SCD's on. 2+ pitting edema in BLE, legs floated and elevated. Assessment completed. Turning pt. every 2 hours to prevent pressure sore development. Continous telemetry monitoring in place. WCTM.
[2017-01-08 02:29] VITALS: BP 99/76
[2017-01-08 06:49] VITALS: BP 107/79
--- NOTE | 2017-01-08 07:20 | Progress Note ---
Subjective General Note Date: January 08 2017 Admission Date: December 24, 2016 Hospital Day: 16 PCP: Twin Mar M.D. Status: Inpatient Advanced Directive: Full code Room: 202 Brief History: The patient is a 81-year-old white male with a significant past medical history of abdominal aortic aneurysm, chronic anemia, chronic renal insufficiency, degenerative joint disease, coronary disease, hypertension, peripheral arterial disease, chronic pain, generalized anxiety disorder, who presented to [facility] emergency room on the day of admission secondary to complaints of nausea, diarrhea, and weakness. ER evaluation was consistent with pneumonia, hypertension, anemia, renal insufficiency. Secondary to the above, the patient was admitted by Vincent Pruitt M.D. for further evaluation and treatment. For other history present illness, past medical history, family history, social history, review of systems, and admission physical examination please see the patient's history and physical examination and ER visit note in the patient's medical record. Subjective: The patient voices no specific complaints today. Continue loose stool but improved. No speciific complaints. Ready for discharge. Patient requests: No specific. Medications and Allergies Medications See MAR Allergies Coded Allergies: Sulfa Drugs (Intermediate, HIVES 03/20/16) Morphine (Intermediate, ITCHY & CRAZY 03/20/16) Physical Exam Vital Signs / I&Os Vital Signs Date Time Temp Pulse Resp B/P Pulse O2 O2 Flow FiO2 Ox Delivery Rate 01/08 0649 97.9 87 20 107/79 95 Nasal 2.0 Cannula 01/08 0229 97.9 111 20 99/76 97 Nasal 2.0 Cannula 01/08 0005 2.0 01/07 2319 2.0 01/07 2210 98.1 97 18 105/79 97 Nasal 2.0 Cannula 01/07 1910 98.1 100 20 103/69 96 Nasal 2.0 Cannula 01/07 1729 98.1 100 20 110/54 98 Nasal 2.0 Cannula 01/07 1615 2.0 01/07 1448 98.1 81 17 106/69 96 Nasal 2.0 Cannula 01/07 1339 98.2 92 18 100/71 90 Nasal 2.0 Cannula 01/07 1236 98.2 89 18 102/71 94 Nasal 2.0 Cannula 01/07 1208 98.8 67 18 98/68 96 Nasal 2.0 Cannula 01/07 1049 97.7 102 18 105/76 95 Nasal 2.0 Cannula 01/07 1001 2.0 01/07 0933 97.9 87 18 105/76 99 Nasal 2.0 Cannula 01/07 0818 97.9 94 18 99/62 95 Nasal 2.0 Cannula I&O 01/08 0000 01/07 1600 01/07 0800 Intake Total 0 2320 Output Total 425 750 200 Balance -425 1570 -200 General Appearance Alert, Cooperative, No acute distress Lungs Scattered rhonchi otherwise clear to ausc Cardiovascular Irregular rhythm. Rate controlled Abdomen Normal bowel sounds, Soft, PEG tube in place Extremities No cyanosis, No clubbing Psych/Mental Status Mood normal LAB Results Laboratory Tests 01/08 01/07 01/07 0530 2036 0755 Chemistry Plasma Sodium (136 - 145 mmol/L) 136 132 Plasma Potassium (3.5 - 5.1 mmol/L) 5.4 5.4 Plasma Chloride (98 - 107 mmol/L) 100 101 CO2 (Enzymatic) (21 - 32 mmol/L) 32 30 BUN (7 - 18 mg/dL) 34 33 Creatinine (0.6 - 1.3 mg/dL) 1.2 1.3 Est GFR ( Amer) (mL/min) >60 >60 Est GFR (Non-Af Amer) (mL/min) >60 56.60 Glucose (70 - 110 mg/dL) 102 116 Plasma Calcium (8.5 - 10.1 mg/dL) 7.8 7.7 Hematology WBC (4.5 - 11.5 K/uL) 6.0 RBC (4.50 - 5.90 M/uL) 2.72 Hgb (13.5 - 17.5 gm/dL) 8.1 Hct (41.0 - 53.0 %) 24.6 MCV (80 - 100 fL) 90 MCH (26 - 34 pg) 30 RDW (11.6 - 14.8 %) 17.0 Neut % (Auto) (50 - 75 %) 64.2 Lymph % (Auto) (25 - 40 %) 17.1 [place] % (Auto) (3 - 14 %) 17.7 Eos % (Auto) (0 - 4 %) 0.7 Baso % (Auto) (0 - 2 %) 0.3 Plt Count, EDTA (150 - 400 K/uL) 165 PUBS MCHC (31 - 37 g/dL) 33 Urines Urine Color YELLOW Urine Appearance CLEAR Urine pH (5.0 - 8.0) 6.0 Ur Specific [place] (1.010 - 1.030) 1.010 Urine Protein (NEGATIVE) NEGATIVE Urine Ketones (NEGATIVE) NEGATIVE Urine Blood (NEGATIVE) NEGATIVE Urine Nitrite (NEGATIVE) NEGATIVE Urine Bilirubin (NEGATIVE) NEGATIVE Urine Urobilinogen (0.2 - 1.0 EU/dL) 0.2 Ur Leukocyte Esterase (NEGATIVE) NEGATIVE Urine RBC (0 - 1 rbc/hpf) 0-1 Urine WBC (0 - 1 wbc/hpf) 0-1 Ur Epithelial Cells (0 - 5 EPI/hpf) 0-1 Urine Bacteria (NONE SEEN) NONE SEEN Urine Glucose (NEGATIVE) NEGATIVE Urine Comment CULT NOT INDICATED Assessment and Plan Problem List 1. Gastric ulcer Plan -stable -No evidence of ongoing bleeding -Discharge on Prevacid/Carafate -Outpatient follow-up with PCP 2. Diarrhea Plan -much improved -Changed to high fiber tube feeding 3. Nausea and vomiting Status Acute Onset Date Unknown Plan -resolved 4. CKD (chronic kidney disease) stage 3, GFR 30-59 ml/min Status Chronic Onset Date Unknown Plan -Stable. No further evaluation 5. GI bleed Plan -resolved -H&H improved status post transfusion -Outpatient follow-up PCP 6. COPD (chronic obstructive pulmonary disease) Plan -stable -No significant wheezing, bronchospasm -No O2 requirements -Continue present therapy 7. Pneumonia Plan -resolved Current status: Fair, improved Anticipated discharge date: Anticipated discharge today or in a.m. Anticipated discharge placement: Home Patient care time: Time spent in chart review, patient interview, physical exam, CPOE, and care documentation: 30 minutes Visit to patient today: 2 Complexity of care: Moderate E&M Codes Discharge: Inpt >30 min spent/[id number]
--- NOTE | 2017-01-08 07:52 | NUR ---
PATIENT RESTING IN BED. T Q 2 HOURS BY STAFF. PEG TUBE INTACT, DRSG CDI. PEG TUBE INFUSING WNL FIBERSOURCE HN @ 55CC/HR. SEE SHIFT ASSESSMENT FOR FURTHER DETAILS.
[2017-01-08 10:45] VITALS: BP 105/69
--- NOTE | 2017-01-08 11:29 | NUR ---
pt unable to be seen d/t high census. Will ck bk 01-09
[2017-01-08] MEDS ORDERED: DILTIAZEM HCL30 MG PTUBE (13:51)
[2017-01-08] MEDS ORDERED: PREVACID SOLUTA30 MG PTUBE (13:51)
[2017-01-08] MEDS ORDERED: LOPERAMIDE HCL PTUBE (13:51)
[2017-01-08] MEDS ORDERED: DIPHENOXYLATE/2.5 MG PTUBE (13:51)
[2017-01-08] MEDS ORDERED: CARAFATE E1 GM/10 ML PTUBE (13:51)
[2017-01-08] MEDS ORDERED: FUROSEMIDE20 MG PTUBE (13:51)
--- NOTE | 2017-01-08 13:56 | Provider's Discharge Care Plan ---
Problem, Goal, Plan Problem List 1. Gastric ulcer Goals: Improve disease control, Prevent disease progress Instructions: Follow up as directed, Take meds as directed 2. Persistent vomiting Goals: Improve disease control, Prevent disease progress Instructions: Follow up as directed, Take meds as directed, Tube feedings for one week then begin oral diet per your family physician recommendations 3. Anemia Goals: Improve disease control, Prevent disease progress Instructions: Follow up as directed, Take meds as directed
[2017-01-08 14:22] VITALS: BP 102/75
[2017-01-08] MEDS ORDERED: NICODERM C14 MG/24 H TOP (17:35)
--- NOTE | 2017-01-08 17:36 | NUR ---
DC INSTRUCTIONS GIVEN TO DTR AND DTR VERBALIZED UNDERSTANDING. PATIENT TO FOLLOW UP WITH DR. FONSECA PCP AND WHO WILL BE TAKING OVER CARE OF TUBE FEEDINGS AND TRANSITIONING TO PO WHEN APPROPRIATE. INFUSION SERVICES TO MEET FAMILY AT HOME FOR TEACHING AT 1830. DC'D IV TO RFA, HEMOSTASIS ACHIEVED WITH MANUAL PRESSURE, PAPER TAPE AND GAUZE TO SECURE. PATIENT DC'D HOME VIA AMBULANCE AND DTR TO MEET PATIENT UPON ARRIVAL TO HOME.
--- NOTE | 2017-01-09 09:06 | NUR ---
Call placed to daughter Davida, as patient was discharged yesterday and I was off from work, and hadn't made official wound dressing plan for discharge. Was going to check status of pressure ulcers today after placing Hydrocolloid on Sunday 01/07. Home Health Nurse is due to see patient tomorrow, recommend that no dressing change be done today, as this is third day of dressing, and they may stay in place 3-5 days if intact. Davida states dressing is intact still and patient has not had any diarrhea. Plan then for Davida to do dressing change with Home Health nurse tommorow, then if dressing is deemed appropriate, will replace with another hydrocolloid which may stay in place until visit with Wound Center on SaturdayJan 14 at 1:45. Daughter agrees to plan, and will continue to turn patient often to relieve pressure on coccyx.
--- NOTE | 2017-01-14 09:35 | Discharge Summary ---
Discharge Summary Report Admit Date 12/24/16 Discharge Date 01/08/17 Admission Diagnosis 1. Pneumonia 2. Chronic kidney disease 3. Diarrhea 4. CHF 5. COPD 6. Anemia 7. Hypotension Discharge Diagnosis 1. Pneumonia 2. Chronic kidney disease 3. Diarrhea 4. CHF 5. COPD 6. Anemia 7. Hypotension 8. Peptic ulcer disease-GI bleed 9. Intractable nausea and vomiting 10. Malnutrition 11. Atrial fibrillation Brief History The patient is a 81-year-old white male with a significant past medical history of abdominal aortic aneurysm, chronic anemia, chronic renal insufficiency, degenerative joint disease, coronary disease, hypertension, peripheral arterial disease, chronic pain, generalized anxiety disorder, who presented to [facility] emergency room on the day of admission secondary to complaints of nausea, diarrhea, and weakness. ER evaluation was consistent with pneumonia, hypertension, anemia, renal insufficiency. Secondary to the above, the patient was admitted by Vincent Pruitt M.D. for further evaluation and treatment. For other history present illness, past medical history, family history, social history, review of systems, and admission physical examination please see the patient's history and physical examination and ER visit note in the patient's medical record. Hospital Course The following problems and their management were noted during the patient's hospitalization: 1. Pneumonia The Patient was admitted with findings suggestive of pneumonia. He underwent treatment with IV followed by oral antimicrobials. Patient completed a course of Rocephin/Zithromax. No signs of pneumonia at the time of discharge. No oxygen requirement. 2. Chronic kidney disease The patient has a history of chronic kidney disease. BUN and creatinine stable during the patient's hospitalization. BUN and creatinine known to be 34/1.2 on discharge. 3. Diarrhea The patient was noted to have findings of diarrhea. C. difficile negative. No evidence of infectious etiology. The patient was treated with high fiber tube feedings with much improved status. Outpatient follow-up with PCP. 4. CHF The patient carries a history of CHF. There were no findings of CHF during the patient's hospitalization. Previous echocardiogram obtained this year showed normal biventricular function. No evidence of any significant valvular heart disease. No clear evidence of any CHF. This was not problematic during the patient's hospitalization . 5. COPD The patient has a history of COPD. This was not problematic during the patient' s hospitalization. He required no supplemental oxygen during his hospital stay. The patient was discharged on maintenance bronchodilators. 6. Anemia The patient has a history of chronic anemia. This is felt secondary to previous history of AVMs. He was noted during his hospitalization to have findings of peptic ulcer disease. He was treated with H2 blockers and Carafate. There was no evidence of ongoing bleeding from the patient's peptic ulcer disease. He did require transfusional therapy. H&H on discharge was noted to be 8.1/24.6. He will require ongoing outpatient follow-up with his PCP and gastroenterology. 7. Hypotension The patient was admitted with findings of hypotension felt secondary to volume depletion. This resolved soon after hospitalization. No further evaluation was undertaken. 8. Peptic ulcer disease-GI bleed The patient was admitted with findings of nausea and vomiting. Upper endoscopy revealed peptic ulcer disease with gastric ulcer. The patient was treated with Pepcid/Carafate. No ongoing bleeding documented. Continue present therapy post discharge. See discharge instructions. 9. Intractable nausea and vomiting The patient had intractable nausea and vomiting. He eventually required PEG tube placement secondary to inability to take orally. Following PEG tube placement the patient experienced no further nausea and vomiting. We'll hold by mouth feedings for additional week. Follow up with his PCP next week for recommendations on oral feedings at that time. 10. Malnutrition The patient was discharged on PEG tube feedings. He will follow up with his PCP next week for recommendations on ongoing nutritional supplementation and possible beginning of oral feeds. 11. Atrial fibrillation The patient has a history of atrial fibrillation. Not a candidate for anticoagulation secondary to GI bleeding/AVMs. Rate controlled with use of diltiazem. Outpatient follow-up with PCP Discharge Instructions/Meds For other recommendations regarding discharge diet, activity, follow-up, and discharge medications please see the patient's discharge instructions. Discharge condition: Fair, improved-stable Greater than 30 minutes was spent in the patient's discharge preparation The patient was interviewed and examined on the day of discharge. E&M Codes Discharge: Inpt >30 min spent/[id number]
== END 2017-01-08 17:40 | disposition home or self-care (01) | DRG 377 ==
LOC: ED SRH 13:49 → TRANS SRH 16:45 → ACUTE2 SRH 18:11 → CC SRH 18:11 → ACUTE2 SRH 12-29 17:19
PROVIDERS: Surgery; ADMIT Emergency Medicine
PROC: 0DB68ZX Excision of Stomach, Via Natural or Artificial Opening Endoscopic, Diagnostic (ICD-10-PCS; principal; 2016-12-26 11:45)
PROC: 30233N1 Transfusion of Nonautologous Red Blood Cells into Peripheral Vein, Percutaneous Approach (ICD-10-PCS; 2016-12-27)
PROC: 30233N1 Transfusion of Nonautologous Red Blood Cells into Peripheral Vein, Percutaneous Approach (ICD-10-PCS; 2016-12-27)
PROC: 0DH63UZ Insertion of Feeding Device into Stomach, Percutaneous Approach (ICD-10-PCS; 2016-12-28)
PROC: 30233N1 Transfusion of Nonautologous Red Blood Cells into Peripheral Vein, Percutaneous Approach (ICD-10-PCS; 2017-01-07)
PROC: 30233N1 Transfusion of Nonautologous Red Blood Cells into Peripheral Vein, Percutaneous Approach (ICD-10-PCS; 2017-01-07)
DX: K25.4 Chronic or unspecified gastric ulcer with hemorrhage (principal); E86.9 Volume depletion, unspecified; I95.9 Hypotension, unspecified; D50.0 Iron deficiency anemia secondary to blood loss (chronic); J44.0 Chronic obstructive pulmonary disease with (acute) lower respiratory infection; J18.9 Pneumonia, unspecified organism; E46 Unspecified protein-calorie malnutrition; Z68.1 Body mass index [BMI] 19.9 or less, adult; I13.0 Hypertensive heart and chronic kidney disease with heart failure and stage 1 through stage 4 chronic kidney disease, or unspecified chronic kidney disease; I50.42 Chronic combined systolic (congestive) and diastolic (congestive) heart failure; N39.0 Urinary tract infection, site not specified; N18.3 Chronic kidney disease, stage 3 (moderate); R19.7 Diarrhea, unspecified; F17.210 Nicotine dependence, cigarettes, uncomplicated
CPT/HCPCS: 50004; 60001; 82943; 82965; 82967; 83353; 83467; 83480; 83504; 83526; 83748; 83754; 83756; 83845; 83921; 84190; 84527; 85241; 85243; 90001; 90004; 90047; 90065; 90074; 90100; 90101; 90112; 90155; 90616; 90705; 91004; 91295; 91320; 91544; 91643; 91672; 92031; 92132; 92235; 92530; 92610; 92720; 93004; 95011; 95059; 95061

== ENCOUNTER 2017-01-13 19:12 | Inpatient (IN) | payer OTHER, MEDICARE ==
[~2017-01-13] VITALS: Ht 188 cm; Wt 71.4 kg
[~2017-01-13 19:12] MED LIST changes: +CARAFATE E1 GM/10 ML PTUBE; +DILTIAZEM HCL30 MG PTUBE; +DIPHENOXYLATE/2.5 MG PTUBE; +FUROSEMIDE20 MG PTUBE; +LOPERAMIDE HCL PTUBE; +NICODERM C14 MG/24 H TOP; +PREVACID SOLUTA30 MG PTUBE
--- NOTE | 2017-01-13 21:17 | ED NURSING NOTES ---
Clinical Report - Nurses [facility] [address] [place] [address] 01/13/2017 19:14 Patient: KOTA ROCHE TRIAGE Triage time 19:23. Acuity: LEVEL 2. Chief Complaint: SHORTNESS OF BREATH and (Per son, Kota has been short of breath today and his oxygen has been dropping getting as low as 70s%.). Alert. SEPSIS SCREEN: Sepsis Screen: negative. Negative (no infection suspected/documented). --19:30 Priyank Gottlieb R.N. 19:21 01/13/17. BP: 111/78 (regular adult cuff) taken on the left arm, via an automated monitor, while sitting. HR: 89 (normal rate). RR: 26 (regular, labored and rapid). O2 saturation: 92% on nasal cannula at 4 liters/minute. Temp: 97.8 F (tympanic). Pain level now: 0/10. --19:30 Priyank Gottlieb R.N. Weight: 70.3 kg estimated. Height/Length: 74 inches Per Patient. BMI: 19.9. --19:27 Priyank Gottlieb R.N. Medications ALPRAZolam Oral (Tablet 0.25 mg) 1 tablet, as needed (max 2 tab in 24 hours). ASA 81 mg, daily. Digoxin Oral 0.125 mg, daily. Diltiazem HCl Oral 240 mg, daily. Gabapentin Oral 300 mg, 3-4 times a day as needed. --19:28 Priyank Gottlieb R.N. Iron Oral. Metoclopramide HCl Oral 5 mg, 3x a day (before meals). Metoprolol Succinate ER Oral (Tablet Extended Release 24 Hour 25 mg) 1 tablet, daily. Nitrostat Sublingual 0.4 mg, as needed. Ondansetron Oral 4 mg, as needed. Oxygen home at 2.5l/min . Ranitidine HCl Oral (Capsule 150 mg) 1 capsule, 2x a day. Tramodol 50mg mg q 4-6 hrs prn . Zolpidem Tartrate Oral 5 mg, daily as needed. --19:28 Priyank Gottlieb R.N. Medication/allergy information source: the patient's family. --19:30 Priyank Gottlieb R.N. Allergies Morphine Sulfate. (confusion) Sulfa Drugs. --19:28 Priyank Gottlieb R.N. History Arrived by EMS. Historian: son, patient and family. Accompanied by family. Primary physician (Dr. Walker). This started today. Treatment PHARMACY DISTRICT MANAGER: None. SOCIAL HX: Current some days light tobacco smoker (cigarette)- less than 1/2 a pack per day. No alcohol use or drug use. He has not traveled outside the [place] The patient was not exposed to MRSA. No infectious disease exposure. ( No physical signs of abuse.). SKIN INTEGRITY ASSESSMENT: Skin integrity risk assessment was performed. Risk factors identified include restricted mobility. FALL RISK ASSESSMENT: Fall risk assessment completed per protocol. Risk factors identified include patient medications, history of fall and impairment of mobility and hearing. Fall interventions initiated. Patient placed on stretcher. Side rails up x2. Brakes on Bed in low position. Patient visible from nurses' station and identified as a fall risk by ID band. Family at bedside. Call light in reach of patient. Instructed not to get up without assistance. --19:30 Priyank Gottlieb R.N. FUNCTIONAL ASSESSMENT: Functional assessment performed: hearing impairment present- this hearing impairment is an ongoing problem. --21:45 Priyank Gottlieb R.N. PROBLEMS: COPD - Chronic Obstructive Pulmonary Disease [Active]. 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 --19:29 Priyank Gottlieb R.N. Kidney disease [Chronic]. Prostate Cancer [Chronic]. Emphysema [Chronic]. Abdominal Pain [Chronic]. Gastroesophageal Reflux Disease [Chronic]. --19:29 Priyank Gottlieb R.N. Hyperkalemia. Drug Poisoning. Hypercapnia. Gastroenteritis. Aortic Dissection. Pressure Ulcer. Hypertension. Back Injury. Back Pain. Lumbar Strain. Fall. UTI - Urinary Tract Infection. Congestive Heart Failure. Hypotension. Atrial Fibrillation. Weakness. Dyspnea. Pneumonia. Depression. Vomiting. Abdominal Pain. Bronchitis. Renal Insufficiency. Anemia. COPD - Chronic Obstructive Pulmonary Disease. Immunizations. GI Bleeding. Syncope. Abnormal Test. Chest Pain. Hyperlipidemia. --19: Priyank Gottlieb R.N. Hypertension [RuleOut]. --:29 Priyank Gottlieb R.N. Assessment GENERAL / NEURO / PSYCH: Alert. Oriented X 4. Appears in distress. Gerry Coma Scale: 15- eyes open spontaneously (4); best verbal response- oriented x 4 (5); best motor response- obeys commands (6). Patient appears calm and cooperative. ( Presents with PEG Tube). RESPIRATORY: Moderate respiratory distress. Prominent substernal accessory muscle use. CVS: Pulses: right radial 2+ and left radial 2+. Capillary refill is greater than 3 seconds. GI / : Abdomen soft and nontender. SKIN: Skin is pale. Skin is cool. --19:30 Priyank Gottlieb R.N. Interventions ID band on patient. To treatment room. --:30 Priyank Gottlieb R.N. PHYSICAL ASSESSMENT 20:15. To room via stretcher. ( Nicotine patch in place on R arm present on arrival to ED. Soiled wound dressing on sacrum present on arrival to ED.). GENERAL / NEURO / PSYCH: Awake. Oriented X 4. Alert. Appears in distress. RESPIRATORY: Moderate respiratory distress. The patient can speak in full sentences. Mild clavicular and substernal accessory muscle use. Chest nontender. Breath sounds within normal limits. No grunting, cough, stridor or nasal flaring. CVS: Normal sinus rhythm noted. Heart sounds within normal limits. Pulses: right radial 2+ and left radial 2+. Capillary refill is greater than 3 seconds. GI / : Abdomen soft and nontender. Penile abnormality noted associated with foreskin entrapment. Right-sided and left-sided scrotal swelling with erythema. ( PEG Tube in place). SKIN: Skin is pale. Skin is dry. Skin is cool. BACK: ( Severe kyphosis noted. Pt neck flexed forward. Having difficulty keeping airway open.). --21:44 Priyank Gottlieb R.N. EXTREMITIES: Edema of the left lower extremity involving the foot and ankle. --22:45 Priyank Gottlieb R.N. NURSING PROGRESS NOTES The initial plan of care for this patient has been created This plan of care was discussed with the patient and son. pvc monitor, pulse oximeter and NIBP monitor placed on patient; alarm security or surveillance monitor- Lead II. Patient gowned. Reassurance given to the patient and patient's family. Two patient identifiers checked. Call light placed in reach. Side rails up x 2. Bed placed in lowest position. Brakes of bed on. Patient ready for evaluation- ED physician notified. --19:31 Priyank Gottlieb R.N. 19:47 01/13/2017 Site #1 started via IV in the right forearm with an 20g angiocath, with aseptic technique and good blood return; one attempt. Blood drawn: rainbow set. Labeled in the presence of the patient and sent to the lab. Saline lock flushed with 10 mL saline. --19:47 Priyank Gottlieb R.N. 20:12 01/13/17. BP: 103/72 taken on the left arm, via an automated monitor, while lying. HR: 95 (regular and normal rate). RR: 22 (labored and normal). O2 saturation: 91%. Additional comments: Neb tx. --20:13 Priyank Gottlieb R.N. RESPIRATORY: Moderate respiratory distress present with accessory muscle use and retractions. ( Daughter reports "he breaths with his stomach but he is breathing a little bit harder than normal; but he is a major stomach breather."). SKIN: Skin is pale. Skin is cool. --20:13 Priyank Gottlieb R.N. 20:13 01/13/2017 Albuterol Neb TX Nebulizer 10 mg given. Given by the respiratory therapist. Allergies verified and confirmed 5 rights. --20:13 Priyank Gottlieb R.N. Critical value relayed to ED by Ivy. Critical value received by Ivet May. K: 6.7. Critical value read back. Verified lab result and patient ID. ED physician notifed of critical value. --20:16 Ivet Wheat 20:25 01/13/17. BP: 110/77 (regular adult cuff) taken on the left arm, via an automated monitor, while lying. HR: 89 (regular and normal rate). RR: 20 (regular, labored and normal). O2 saturation: 96% on face mask at 10 liters/minute. Additional comments: Nebulizer tx in place. --20:26 Priyank Gottlieb R.N. Cardiac rhythm: normal sinus rhythm. pvc monitor, pulse oximeter and NIBP monitor placed on patient; alarm security or surveillance monitor- Lead II. Warming measures: blanket applied. ( Moved to room 1.). RESPIRATORY: Moderate respiratory distress present. Two patient identifiers checked. Call light placed in reach. Side rails up x 1. Bed placed in lowest position. Brakes of bed on. Family at bedside (Daughter). --20:26 Priyank Gottlieb R.N. ( Kota placed on BiPaP by RT (Michelle RT).). --20:59 Priyank Gottlieb R.N. 20:57 01/13/17. BP: 107/71 (regular adult cuff) taken on the left arm, via an automated monitor, while lying. HR: 84 (regular and normal rate). RR: 22 (regular and labored). O2 saturation: 96% on room air. --20:59 Priyank Gottlieb R.N. Cardiac rhythm: normal sinus rhythm. --21:00 Priyank Gottlieb R.N. 21:00 01/13/17. O2 saturation: 96%. Additional comments: BiPaP. --21:00 Priyank Gottlieb R.N. 21:01 01/13/2017 Started 2 gm of Rocephin (CefTRIAXone Sodium) IVPB in bag #1 50 mL; at 100 mL/hr over 30 minute(s) via site #1; Allergies verified and confirmed 5 rights. IV patency established. IV site checked: no pain, redness, or swelling. IV flushed thoroughly pre- and post-medication administration. Completed per protocol. --21:01 Priyank Gottlieb R.N. 21:02 01/13/17. BP: 107/71. HR: 85. RR: 14. O2 saturation: 95%. --21:04 Sandro Chandra 21:20 01/13/2017 Rocephin IVPB Discontinued: bag #1 completed upon admission. Total amount infused: 50 mL. IV patency established. IV site checked: no pain, redness, or swelling. IV flushed thoroughly. --21:30 Priyank Gotltieb R.N. 21:25 01/13/2017 Started 500 mg of Zithromax (Azithromycin) IVPB in bag #1 250 mL; at 250 mL/hr over 1 hour(s) via site #1; Allergies verified and confirmed 5 rights. IV patency established. IV site checked: no pain, redness, or swelling. IV flushed thoroughly pre- and post-medication administration. Completed per protocol. --21:30 Priyank Gottlieb R.N. Patient ID band checked for patient name and birthdate: patient confirmed. Blood samples drawn by lab per protocol ; labeled in presence of the patient and sent to lab: woo top; blood culture (1st set). (BC 2nd set). The patient is calm and resting quietly. SKIN: Skin is pale. Skin is dry and warm. --21:32 Priyank Gottlieb R.N. 21:31 01/13/17. BP: 101/69 (regular adult cuff) taken on the left arm, via an automated monitor, while lying. HR: 85 (regular and normal rate). RR: 20 (regular, labored and normal). O2 saturation: 95%. Additional comments: BiPaP. --21:32 Priyank Gottlieb R.N. late entry -20:15. ( Wound pictures taken for documentation. Sacrum Mepilex placed.). --21:39 Priyank Gottlieb R.N. 21:40 01/13/17. BP: 105/67 (regular adult cuff) taken on the left arm, via an automated monitor, while lying. HR: 84 (regular and normal rate). RR: 20 (regular and normal). O2 saturation: 95%. Additional comments: BiPaP. --21:40 Priyank Gottlieb R.N. DISPOSITION / DISCHARGE Condition at departure: stable. The goals identified in the patient's plan of care were met. GERRY COMA SCORE: Hillrose Coma Scale: 15- eyes open spontaneously (4); best verbal response- oriented x 4 (5); best motor response- obeys commands (6). --22:06 Priyank Gottlieb R.N. 21:56 01/13/17. BP: 104/80 (regular adult cuff) taken on the left arm, via an automated monitor, while lying. HR: 97 (regular and normal rate). RR: 20 (regular, labored and normal). O2 saturation: 95%. Temp: 97.8 F (tympanic). Pain level now: 0/10. Additional comments: BiPAP. --22:06 Priyank Gottlieb R.N. Departure time: 2210. Transported via stretcher by nurse and respiratory therapist with monitor, IV and O2. --22:45 Priyank Gottlieb R.N. Locked/Released at 01/13/2017 22:46 by Priyank Gottlieb R.N.
--- NOTE | 2017-01-13 21:17 | ED ORDER SUMMARY ---
..... Patient: KOTA ROCHE OrderSheet [facility] VisitID: [id number] [address] [place] [address] 81y, M Registration Date/Time: 01/13/2017 ORDER SHEET Weight: 70.3 kg (estimated) Allergies: Morphine Sulfate, Sulfa Drugs GENERAL ORDERS: Recycle Coordinator (Continuous) (19:46 01/13/2017 Livan Magaña.N. verbal order read back to Julio LUNDBERG) (19:57 AMcQuoid ER Tech1) CBC w Diff Urgent (19:46 01/13/2017 Livan Magaña.N. verbal order read back to Julio LUNDBERG) (19:57 AMcQuoid ER Tech1) CMP Urgent (19:46 01/13/2017 Livan Magaña.N. verbal order read back to Julio LUNDBERG) (19:57 AMcQuoid ER Tech1) Type & Screen Urgent (19:46 01/13/2017 Livan Magaña.Esme. verbal order read back to Julio LUNDBERG) (19:57 AMcQuoid ER Tech1) Oxygen (2 L/min) (NC) (19:46 01/13/2017 Livan Magaña.N. verbal order read back to Julio LUNDBERG) (19:57 AMcQuoid ER Tech1) Pulse oximeter (19:46 01/13/2017 Livan Magaña.N. verbal order read back to Julio LUNDBERG) (19:57 AMcQuoid ER Tech1) Chest 1V Urgent (19:49 01/13/2017 Livan Magaña.N. verbal order read back to Julio LUNDBERG) (Ack 19:57 AMcQuoid ER Tech1) (20:04 JDeElena R.N.) ABG (G) Urgent (19:59 01/13/2017 Julio LUNDBERG) (Ack 20:03 Odell) (20:13 RoDeElenshara R.N.) BNP Urgent (20:54 01/13/2017 Julio LUNDBERG) (Ack 20:56 Odell) (21:31 JDeElena R.N.) Blood Culture (No) (N/A) Urgent (20:56 01/13/2017 Julio LUNDBERG) (Ack 20:59 Odell) (21:31 JDeElena R.N.) Lactate, Serum Urgent (20:56 01/13/2017 Julio LUNDBERG) (Ack 20:59 Odell) (21:31 JDeElena R.N.) MEDICATION ORDERS: Albuterol Neb Tx 10 mg (NOW) (20:04 01/13/2017 Livan R.N. verbal order read back to Julio LUNDBERG) (20:13 JDeElena R.N.) IV FLUIDS: IV Saline Lock (19:46 01/13/2017 Livan R.N. verbal order read back to Julio LUNDBERG) (19:47 JDeElena R.N.) Rocephin IV 2 gm/50mL (NOW) (20:43 01/13/2017 Julio LUNDBERG) (Ack 20:51 JDeElena R.N.) (21:01 JDeElena R.N.) Zithromax IV 500 mg/250 mL (NOW) (20:44 01/13/2017 Julio LUNDBERG) (Ack 20:51 JDeElena R.N.) (21:30 JDeElena R.N.) ORDER SHEET NOTES: [Electronically signed by Priyank Gottlieb R.N. (22:46 01/13/2017)] [Electronically signed by Leatha Cohen MD (09:48 01/18/2017)] [Electronically locked/signed by Priyank Gottlieb R.N. (22:46 01/13/2017)]
--- NOTE | 2017-01-13 21:17 | ED ORDER SUMMARY ---
..... Patient: KOTA ROCHE OrderSheet [facility] VisitID: [id number] [address] [place] [address] 81y, M Registration Date/Time: 01/13/2017 ORDER SHEET Weight: 70.3 kg (estimated) Allergies: Morphine Sulfate, Sulfa Drugs GENERAL ORDERS: Dock Manager (Continuous) (19:46 01/13/2017 Livan Magaña.N. verbal order read back to Julio LUNDBERG) (19:57 AMcQuoid ER Tech1) CBC w Diff Urgent (19:46 01/13/2017 Livan Magaña.N. verbal order read back to Julio LUNDBERG) (19:57 AMcQuoid ER Tech1) CMP Urgent (19:46 01/13/2017 Livan Magaña.N. verbal order read back to Julio LUNDBERG) (19:57 AMcQuoid ER Tech1) Type & Screen Urgent (19:46 01/13/2017 Livan Magaña.Esme. verbal order read back to Julio LUNDBERG) (19:57 AMcQuoid ER Tech1) Oxygen (2 L/min) (NC) (19:46 01/13/2017 Livan Magaña.N. verbal order read back to Julio LUNDBERG) (19:57 AMcQuoid ER Tech1) Pulse oximeter (19:46 01/13/2017 Livan Magaña.N. verbal order read back to Julio LUNDBERG) (19:57 AMcQuoid ER Tech1) Chest 1V Urgent (19:49 01/13/2017 Livan Magaña.N. verbal order read back to Julio LUNDBERG) (Ack 19:57 AMcQuoid ER Tech1) (20:04 JDeElena R.N.) ABG (G) Urgent (19:59 01/13/2017 Julio LUNDBERG) (Ack 20:03 Odell) (20:13 RoDeElenshara R.N.) BNP Urgent (20:54 01/13/2017 Julio LUNDBERG) (Ack 20:56 Odell) (21:31 JDeElena R.N.) Blood Culture (No) (N/A) Urgent (20:56 01/13/2017 Julio LUNDBERG) (Ack 20:59 Odell) (21:31 JDeElena R.N.) Lactate, Serum Urgent (20:56 01/13/2017 Julio LUNDBERG) (Ack 20:59 Odell) (21:31 JDeElena R.N.) MEDICATION ORDERS: Albuterol Neb Tx 10 mg (NOW) (20:04 01/13/2017 Livan R.N. verbal order read back to Julio LUNDBERG) (20:13 JDeElena R.N.) IV FLUIDS: IV Saline Lock (19:46 01/13/2017 Livan R.N. verbal order read back to Julio LUNDBERG) (19:47 JDeElena R.N.) Rocephin IV 2 gm/50mL (NOW) (20:43 01/13/2017 Julio LUNDBERG) (Ack 20:51 JDeElena R.N.) (21:01 JDeElena R.N.) Zithromax IV 500 mg/250 mL (NOW) (20:44 01/13/2017 Julio LUNDBERG) (Ack 20:51 JDeElena R.N.) (21:30 JDeElena R.N.) ORDER SHEET NOTES: [Electronically signed by Priyank Gottlieb R.N. (22:46 01/13/2017)] [Electronically signed by Leatha Cohen MD (09:48 01/18/2017)] [Electronically locked/signed by Priyank Gottlieb R.N. (22:46 01/13/2017)]
--- NOTE | 2017-01-13 21:17 | ED CLINICAL REPORT ---
Clinical Report - Physicians/[facility] [address] [place] [address] 01/13/2017 19:14 [id number] Time Seen: 19:25. Arrived- By private vehicle. Historian- patient. HISTORY OF PRESENT ILLNESS Chief Complaint: DYSPNEA and HISTORY OF CHRONIC OBSTRUCTIVE PULMONARY DISEASE and altered mental status. This started today and is still present. The dyspnea is described as moderate (Pt's son and daughter state that pt has been drowsy today, and has been having trouble holding his head up. This is not entirely new for the pt, but is more pronounced today. He does respond to voice and answer simple questions but is not able to provide much history.). (Nothing improves or worsens (pt is not able to exert himself, due to physical deconditioning.). The patient has had a cough. No sputum production, fever, sweating episodes, wheezing or chills. No chest pain or discomfort, calf pain, foot swelling or orthopnea. No anxiety, dizziness, tingling, numbness or palpitations. Similar symptoms previously: Recent medical care: Not recently seen/assessed. REVIEW OF SYSTEMS The patient has not had weight loss. No muscle aches, eye irritation, sore throat, nasal discharge or sinus drainage. No nausea, vomiting, abdominal pain, diarrhea or black stools. No bloody stools, headache, fainting episodes, blurred vision or difficulty with urination. No skin rash, enlarged lymph nodes or joint pain. All systems otherwise negative, except as recorded above. PAST HISTORY Problems: Hypercapnia. Aortic Dissection. Pressure Ulcer. Hypertension. Congestive Heart Failure. Hypotension. Atrial Fibrillation. Dyspnea. Depression. Renal Insufficiency. Anemia. COPD - Chronic Obstructive Pulmonary Disease. Immunizations. GI Bleeding. Syncope. Hyperlipidemia. Additional Surgeries: Abdominal Aortic Aneurysm Repair. Appendectomy. Back Surgery. Cholecystectomy. Endoscopy. Prostatectomy. Renal stents. SMA stent. Medications: Iron Oral. Metoclopramide HCl Oral 5 mg, 3x a day (before meals). Metoprolol Succinate ER Oral (Tablet Extended Release 24 Hour 25 mg) 1 tablet, daily. Nitrostat Sublingual 0.4 mg, as needed. Ondansetron Oral 4 mg, as needed. Oxygen home at 2.5l/min . Ranitidine HCl Oral (Capsule 150 mg) 1 capsule, 2x a day. Tramodol 50mg mg q 4-6 hrs prn . Zolpidem Tartrate Oral 5 mg, daily as needed. ALPRAZolam Oral (Tablet 0.25 mg) 1 tablet, as needed (max 2 tab in 24 hours). ASA 81 mg, daily. Digoxin Oral 0.125 mg, daily. Diltiazem HCl Oral 240 mg, daily. Gabapentin Oral 300 mg, 3-4 times a day as needed. Allergies: Morphine Sulfate. (confusion) Sulfa Drugs. SOCIAL HISTORY Smoker- current status unknown. No alcohol use or drug use. ADDITIONAL NOTES The nursing notes have been reviewed. PHYSICAL EXAM Vital Signs: 01/13/2017 19:21 BP: 111/78. HR: 89. RR: 26. O2 saturation: 92%. Temp: 97.8 F. Pain level now: 0/10. Have been reviewed. Appearance: Lethargic. Patient in moderate distress. Distress appears respiratory. Eyes: Pupils equal, round and reactive to light. Eyes normal inspection. ENT: Nose normal. Neck: Normal inspection. CVS: Normal heart rate and rhythm. Heart sounds normal. Pulses normal. Respiratory: Moderate respiratory distress with accessory muscle use and decreased mental status. Speaks in single words. Moderately decreased air movement diffusely over both lungs. No wheezes or rales. Abdomen: Soft and nontender. Back: Normal inspection. Skin: Skin warm and dry. No rash. Ashen. Extremities: No lower extremity edema. Neuro: No motor deficit. No sensory deficit. (PT opens his eyes to voice, makes eye contact for a few seconds, and answers with a single word. He becomes drowsy shortly thereafter and begins to nod off.). LABS, X-RAYS, AND EKG Rhythm Strip #1: Time: (1924). Rate= 91. Normal sinus rhythm. Regular rhythm. Narrow QRS complexes. No ectopy. Conduction normal. Normal ST segments and T waves. The study was interpreted by me. Chest X-ray: Infiltrate present (bilateral, large). Normal heart size. Mediastinum normal. Great vessels normal. Soft tissues normal. No fracture. No bony lesion present. Views: AP (portable). Technique: good. The X-rays were independently viewed by me, interpreted by the radiologist and contemporaneously by me and discussed with the radiologist. Prior films were not available for comparison. Laboratory Tests: CBC w Diff: (VERONICA: 01/13/2017 19:39) ( [facility] [place] 01/13/[place] 20:08) Final results Test Result Flag Units (Reference) WHITE BLOOD COUNT 8.1 K/uL (4.5-11.5) RED BLOOD COUNT 3.11 L M/uL (4.50-5.90) HEMOGLOBIN 9.7 L gm/dL (13.5-17.5) HEMATOCRIT 28.5 L % (41.0-53.0) MEAN CELL VOLUME 92 fL (80-100) MEAN CORPUSCULAR HGB 31 pg (26-34) MEAN CORPUSCULAR HGB CONC 34 g/dL (31-37) RED CELL DISTRIBUTION WIDTH 16.7 H % (11.6-14.8) PLATELET COUNT 277 K/uL (150-400) NEUTROPHIL % 71.4 % (50-75) LYMPH % 9.6 L % (25-40) MONO % 18.1 H % (3-14) EOSINOPHIL % 0.4 % (0-4) BASOPHIL % 0.5 % (0-2) CMP: (VERONICA: 01/13/2017 19:39) ( Msg[facility]cvd 01/13/2017 20:16) Final results Test Result Flag Units (Reference) GLUCOSE 126 H mg/dL (70-110) BUN 44 H mg/dL (7-18) CREATININE 1.3 mg/dL (0.6-1.3) Estimated GFR 56.60 mL/min Estimated GFR- >60 mL/min Note: Persistent reduction over 3 months in eGFR<60 mL/min/1.73 m2 defines CKD. Patients with eGFR values>=60 mL/min/1.73 m2 may also have CKD if evidence ofpersistent proteinuria. Additional information may be foundat [email or web address]. SODIUM 120 L mmol/L (136-145) POTASSIUM 6.7 *H mmol/L (3.5-5.1) CRITICAL RESULTS CALLEDCalled to JOSSELYN 01/13/172014Were 2 patient identifiers used? YWas the result read back? Y CHLORIDE 91 L mmol/L (98-107) CARBON DIOXIDE 34 H mmol/L (21-32) CALCIUM 8.2 L mg/dL (8.5-10.1) TOTAL PROTEIN 6.4 g/dL (6.4-8.2) ALBUMIN 2.4 L g/dL (3.3-5.0) BILIRUBIN, TOTAL 0.5 mg/dL (0.0-1.0) ALKALINE PHOSPHATASE 240 H U/L (46-116) AST (SGOT) 21 U/L (15-37) ALT (SGPT) 21 U/L (12-78) MODIFIED CASI TEST POSITIVE? YES ARTERIAL BLOOD GAS pH 7.34 L (7.35-7.45) ABG PCO2 63.0 *H mmHg (35-45) ABG PO2 48.8 *L mmHg (60.0-80.0) ABG BASE EXCESS 7.6 *H mmol/L (-6.0--6.0) ABG HCO3 34.0 *H mmol/L (20.0-26.0) ABG TCO2 36.0 *H mmol/L (24.0-30.0) ABG SaSvG3t 268.9 H mmHg (7.0-14.0) *NOTE: Normal range is based on a FIO2 of 21% ABG SAT O2 84.6 L % (95.1-100.0) ABG TOTAL HEMOGLOBIN 9.2 L g/dL (14.0-18.0) ABG O2 HEMOGLOBIN 82.7 *L % (95.0-100.0) ABG CARBOXYHEMOGLOBIN 2.6 H % (0.5-1.5) ABG METHEMOGLOBIN -0.3 L % (0.4-1.5) ABG RHEMOGLOBIN 15.0 % . Pulse Oximetry: 01/13/2017 19:21 O2 saturation: 92%. (FIO2 - room air). Interpretation: normal. PROGRESS AND PROCEDURES Course of Care: This pt was in distress, and unable to stay awake to keep his oxygen saturation up. Although his O2 sats were in the low 90's during brief periods of wakefulness, he repeatedly nodded off, and sats immediately dropped to the 70's, with a good wave form. We did try to prop the pt's chin up with a towel roll or a soft collar during the initial history-taking, but this was not successful. I spoke frankly with the pt's children about the pt's very poor baseline health, as well as currently critical condition, and addressed the issue of code status. They discussed it among themselves and with the pt, and ultimately, they stated that they and the pt wanted everything done, including intubation, should it become necessary. Pt was in respiratory failure, and I did opt to put him on bipap. This was done, and pt did tolerate it well. His oxygen saturation remained stable in the mid-90's. His initial ABG before bipap showed mild hypercarbia and moderate hypoxemia, with pH just below normal at 7.34. Pt was given IV antibiotics for his pneumonia, and an albuterol nebulizer treatment in-line. Critical care performed (75 minutes). Time is exclusive of separately billable procedures. Time includes: direct patient care, patient reassessment, coordination of patient care, interpretation of data (laboratory data, pulse oximetry, arterial blood gases, chest xrays and cardiac output measurements), review of patient's medical records, medical consultation, family consultation regarding treatment decisions and documentation of patient care- see progress notes. Procedures included in critical care time: ventilator management. The patient required critical care due to the acute impairment of vital organ systems (respiratory and central nervous system) and a high probability of imminent and life threatening deterioration. Multiple emergent and urgent interventions were required to prevent sudden life threatening deterioration. Discussed case with hospitalist, (Crystal). Reviewed test results and need for additional work-up. Agreed upon treatment plan and decision to admit. Health care provider will see patient in ED. Patient and family counseled in person regarding the patient's critical condition, test results, diagnosis and need for admission. Concerns were addressed. Old medical records reviewed. Disposition: Admitted to the Critical Care Unit. Condition: stable and critical. CLINICAL IMPRESSION Acute mental status change with lethargy. Chronic respiratory failure with hypoxemia (with acute exacerbation). Acute exacerbation of COPD (with hypoxia and altered LOC). Bacterial pneumonia with hypoxemia and respiratory failure. (Electronically signed by Leatha Cohen MD 01/18/2017 9:48) Addenda for KOTA ROCHE VisitID: [id number] Date: 01/13/2017 01/13/2017 22:46 Started 500 mg of Zithromax (Azithromycin) IVPB in bag #1 250 mL; at 250 mL/hr over 1 hour(s) via site #1; Allergies verified and confirmed 5 rights. IV patency established. IV site checked: no pain, redness, or swelling. IV flushed thoroughly pre- and post-medication administration. Completed per protocol. Zithromax IVPB Continued: upon admission at the rate of 250 mL/hr. 125 mL remaining bag #1. IV patency established. IV site checked: no pain, redness, or swelling. IV flushed thoroughly.I personally performed the procedure as documented. (Electronically signed by Priyank Gottlieb R.N. - 01/13/2017 22:46)
--- NOTE | 2017-01-13 22:39 | Progress Note ---
Subjective General Full note dictated:Brief hx: 81 y.o male with copd, chf, and recent admit who has been with decline over the last year. Admitted through the ER for increase in WOB and decrease in LOC. Found to have very abnl CXR c/w CHF vs pneumonia, treated with abx in the ER but has a normal WBC, elevated BNP. Plan:Will treat with lasix and bipap for resp failure. Monitor ABG and labs. Kayexalate for hyperkalemia.
--- NOTE | 2017-01-13 22:46 | DIAGNOSTIC IMAGING REPORT ---
PROCEDURE: XR CHEST 1 VIEW INDICATION: SHORTNESS OF BREATH TECHNIQUE: Single view chest. 2002 hours COMPARISON: 12/24/2016 FINDINGS: Lower lung volumes. Increased heart size compared to previous. Mild irregularity around the enlarged aortic arch shadow. Central vessels are indistinct. Patchy alveolar opacity is present bilaterally. Moderate to bilateral pleural effusions. No pneumothorax. Intact osseous structures with surgical changes in the left humeral head. IMPRESSION: 1. Bilateral alveolar opacities and effusions, new on the right and much worse on the left compared to the prior study. CHF with edema, less likely bilateral pneumonia with effusions. 2. New irregularity surrounding the aortic arch contour which may indicate atelectasis secondary to edema and low lung volumes, or progression of known dissection. Correlate clinically. 3. Findings called to Dr. Rojas.
[2017-01-13 22:58] VITALS: BP 97/61
[2017-01-13 23:45] VITALS: BP 88/65
--- NOTE | 2017-01-13 23:55 | HISTORY AND PHYSICAL ---
ADMITTED: 01/13/2017 CHIEF COMPLAINT: 1. Shortness of breath 2. Decreased mental status. HISTORY OF PRESENT ILLNESS: The patient is a 81-year-old male who had recently spent a prolonged period of time within our hospital. He was at home for a week or so where he had decreased ability to carry on conversations today. Also, he seemed to be having a little bit harder time breathing. So family noticed him with this decrease in status, and they decided to bring him back into the hospital for further evaluation. While he was at home, they had noticed that his oxygenation was low. In spite of nebulizer treatments, he was maintaining in the 70s. In the emergency department, he was found to have an elevated CO2, low O2. Decision was made to place him on BiPAP, which he tolerated pretty well. He also was found to have a significantly abnormal chest x-ray with bilateral patchy infiltrates and a large heart consistent with either bilateral infiltrates and pneumonia versus possible congestive heart failure. MEDICAL/SURGICAL HISTORY: Past medical history: He has had a thoracic and abdominal aortic aneurysm, COPD, GERD, chronic low back pain, chronic renal insufficiency, atrial fibrillation, pneumonia, arthritis, congestive heart failure, depression, anxiety, hypertension, peripheral artery disease, chronic anemia, secondary gastrointestinal bleeds and AVMs. Past surgical history: He has had appendectomy, cholecystectomy, prostatectomy, lumbar laminectomy, eye surgery, left rotator cuff surgery, SMA and renal artery stents , and also recent G-tube placement in the last hospitalization. Code: chemical code only confirmed same as last hospitalization MEDICATIONS: His discharge medications included: 1. Aspirin 81 mg p.o. daily. 2. Diltiazem 30 mg p.o. q.6 hours. 3. Diphenoxylate with atropine 1 tablet per G-tube q.i.d. p.r.n. diarrhea. 4. Ferrous sulfate 325 mg p.o. b.i.d. 5. Furosemide 20 mg per G-tube daily. 6. Gabapentin 300 mg per G-tube b.i.d. 7. Lansoprazole 30 mg per G-tube b.i.d. 8. Loperamide 2 mg per G-tube q.4 hours p.r.n. diarrhea. 9. Nicotine patches 14 mcg. 10. Nitroglycerin 0.4 mg sublingual q.5 minutes p.r.n. chest pain. 11. Sertraline 50 mg per G-tube daily. 12. Sucralfate 1 gram per G-tube q.6 hours. 13. Tramadol 25 mg per G-tube q.6 hours p.r.n. pain. ALLERGIES: 1. MORPHINE. 2. SULFA. SOCIAL HISTORY: He is a . He lives with his son. He used to smoke cigarettes 2 packs per day and has not for the last 3 weeks had any cigarettes at all. He is essentially had a severe decline over the last year, and he is no longer getting up and walking at all and has not over that time period. He does not do any drugs or drink any alcohol, per family. FAMILY HISTORY: His father of abdominal aortic aneurysm. His mother of old age. REVIEW OF SYSTEMS: His review of systems is notable for decreased mental status , also somnolence. Also he has had significant swelling initially on his feet and legs and his ankles, and then into his scrotum and penis region as well. He is not able to communicate well right now due to his decreased mental status changes. Per family, the rest of his review of systems has essentially been stable. PHYSICAL EXAMINATION: GENERAL: He is a sleepy-appearing male, who is on BiPAP. VITAL SIGNS: Blood pressure of 111/78, heart rate of 89, respirations 26, saturating 92% on 4 liters, temperature 97.8. HEENT: Extraocular movements are grossly intact. He awakens limitedly and is able to answer minimal questions. He is currently using the BiPAP, making it difficult for any communications. NECK: Supple without lymphadenopathy. LUNGS: With coarse breath sounds bilaterally with decent air movement on BiPAP. HEART: Regular rate and rhythm. ABDOMEN: Soft. It is nondistended. EXTREMITIES: Trace edema on the lower extremities. GENITOURINARY: There is a significant amount of scrotal edema and edema around his foreskin as well. LAB/IMAGING: BNP is 645. Comprehensive metabolic panel: Glucose of 126, BUN of 44, creatinine 1.3, sodium 120, potassium 6.7, chloride of 91, carbon dioxide 34, calcium 8.2, total protein 6.4, albumin 2.4. Total bilirubin 0.5, alkaline phosphatase of 240, AST of 21, ALT of 21. CBC: White count of 8.1, hematocrit 28.5, platelets of 277. Type and screen: O positive with the screen negative. Chest x-ray shows enlarged heart and diffuse patchy infiltrates. IMPRESSION/PLAN: This is a 81-year-old male with chronic medical problems includin. Chronic back pain. 2. History of chronic obstructive pulmonary disease. 3. Chronic obstructive pulmonary disease exacerbations. 4. Shortness of breath. 5. Congestive heart failure. 6. Recent gastrostomy tube placement and hospitalization. 7. He has also had a decline over the last year with multiple issues including Clostridium difficile. He has had decreased mental status as well as increased work of breathing leading to emergency department evaluation with bilateral patchy infiltrates and either congestive heart failure or pneumonia. He does have an elevated BNP that is significant, as well as he has an older echocardiogram of 02/23/2016 with an ejection fraction of 64% and preserved biventricular systolic function noted. He also has an elevated potassium and we will treat with Kayexalate. He has respiratory failure secondary to above, and congestive heart failure, likely. We will treat him with Lasix as well as BiPAP at this time. His renal function is mildly elevated. Creatinine, we will monitor this closely. The high potassium will likely improve with the Kayexalate dose, as well as with some Lasix. The mental status changes we are anticipating will improve over the next 24 to 48 hours with improved oxygenation. He has normal white blood cell count and labs are less consistent with pneumonia. We will hold on antibiotics as he is afebrile and is not showing any signs of pneumonia other than abnormal chest x-ray, which is likely congestive heart failure. He has a history of chronic low hematocrit and gastrointestinal bleed and we will continue with Carafate dosing, which he was discharged home with recently. We will also continue with his gastrostomy tube feedings. Will also continue with his home medications other than stop the diltiazem and change to metoprolol as the diltiazem increases risk for congestive heart failure. I will repeat an echocardiogram. Will also follow his ABGs for his BiPAP.
[2017-01-14] VITALS (27 sets, daily range): BP systolic 69–103; BP diastolic 18–74
--- NOTE | 2017-01-14 06:35 | DIAGNOSTIC IMAGING REPORT ---
PROCEDURE: XR CHEST 1 VIEW INDICATION: Follow up pneumonia. History of large dissecting thoracic aortic aneurysm TECHNIQUE: Portable AP view (0600 hours). COMPARISON: Compared to chest x-rays on 01/13/2017 and 12/24/2016. FINDINGS: There are severe bilateral parenchymal changes with relative sparing of the upper lungs, although there has been mild improvement in pulmonary vascular congestion. Moderate to marked cardiomegaly. Tortuous and ectatic thoracic aortic arch. Thorax is unchanged. IMPRESSION: 1. Severe bilateral parenchymal changes most compatible with pneumonia. 2. Mild improvement in pulmonary vascular congestion. 3. Moderate to marked cardiomegaly chest. Consider associated congestive heart failure or pericardial effusion.
--- NOTE | 2017-01-14 09:51 | Progress Note ---
Subjective General Patient did not tolerate bipap well overnight. Switched to NC, and breathing is obviously labored. Patient c/o pain in his chest. No fevers, but BP has been in the 80-90's and HR anywhere from 100-140. Was initially given diuretics overnight, but BP did not tolerate this, so was given a 250cc bolus instead. Patient remains a bit confused. Physical Exam Vital Signs / I&Os Vital Signs Date Time Temp Pulse Resp B/P Pulse O2 O2 Flow FiO2 Ox Delivery Rate 01/14 0814 131 01/14 0800 90/68 01/14 0728 134 26 87/62 98 Nasal 4.0 Cannula 01/14 0707 6.0 01/14 0705 120 24 83/58 100 Bipap 55 01/14 0604 98.2 114 20 82/64 100 Bipap 01/14 0500 112 18 87/59 99 01/14 0400 106 18 91/62 99 01/14 0300 93 17 89/65 98 01/14 0200 97.7 93 18 88/61 99 Bipap 01/14 0100 94 94/63 99 01/14 0034 89 18 87/64 01/13 2345 97.9 90 18 88/65 Bipap 01/13 2258 97.9 92 21 97/61 100 Bipap 01/13 2230 Bipap 55 I&O 01/14 0000 01/13 1600 01/13 0800 Intake Total Output Total Balance General Appearance Alert, Oriented to person. Tachypnic w/ some accessory muscle use. Ill-appearing. HEENT Dry MM Lungs Rhonchorous throughout, no wheezing noted Neck Supple, Unable to assess JVD Cardiovascular Tachy and irregularly irregular, no murmur appreciated Abdomen Normal bowel sounds, Soft, No tenderness Extremities No edema Skin No Rashes Neurological No lateralizing signs Psych/Mental Status Confused LAB Results Laboratory Tests 01/14 01/14 01/14 01/13 0517 0517 0200 2135 Blood Gas Sample Site RR Total CO2 (24.0 - 30.0 mmol/L) 37.5 ABG pH (7.35 - 7.45) 7.32 ABG pCO2 at Pt Temp (35 - 45 mmHg) 68.3 ABG pO2 at Pt Temp (60.0 - 80.0 mmHg) 60.0 ABG HCO3 (20.0 - 26.0 mmol/L) 35.4 ABG O2 Sat Calc/Saurabh (95.1 - 100.0 %) 91.3 ABG Base Excess (-6.0 - -6.0 mmol/L) 8.7 ABG Reduced Hgb (%) 8.5 ABG Carboxyhemoglobin (0.5 - 1.5 %) 1.8 ABG Methemoglobin (0.4 - 1.5 %) 0.1 Moose Test YES Other Total Hgb (14.0 - 18.0 g/dL) 8.8 A-a O2 Gradient (7.0 - 14.0 mmHg) 252.6 Hgb O2 Saturation (95.0 - 100.0 %) 89.6 Respiration Rate (/MIN) 14 Vent Mode BIPAP FiO2 (20 - 101 %) Pending Blood Gas Comments BIPAP 18/8 X14 +55% Chemistry Plasma Sodium (136 - 145 mmol/L) 129 Plasma Potassium (3.5 - 5.1 mmol/L) 6.3 Plasma Chloride (98 - 107 mmol/L) 94 CO2 (Enzymatic) (21 - 32 mmol/L) 34 BUN (7 - 18 mg/dL) 47 Creatinine (0.6 - 1.3 mg/dL) 1.4 Est GFR ( Amer) (mL/min) >60 Est GFR (Non-Af Amer) (mL/min) 51.96 Glucose (70 - 110 mg/dL) 117 Lactic Acid (0.4 - 2.0 mmol/L) 0.8 Plasma Calcium (8.5 - 10.1 mg/dL) 8.0 Plasma Magnesium (1.8 - 2.4 mg/dL) 1.9 Total Bilirubin (0.0 - 1.0 mg/dL) 0.4 AST (15 - 37 U/L) 23 ALT (12 - 78 U/L) 18 Alkaline Phosphatase (46 - 116 U/L) 220 Troponin (0.00 - 1.5 ng/mL) 0.06 B-Natriuretic Peptide (5 - 100 pg/ml) 955 Total Protein (6.4 - 8.2 g/dL) 6.0 Albumin (3.3 - 5.0 g/dL) 2.1 Hematology WBC (4.5 - 11.5 K/uL) 6.9 RBC (4.50 - 5.90 M/uL) 2.95 Hgb (13.5 - 17.5 gm/dL) 9.1 Hct (41.0 - 53.0 %) 27.1 MCV (80 - 100 fL) 92 MCH (26 - 34 pg) 31 RDW (11.6 - 14.8 %) 16.5 Neut % (Auto) (50 - 75 %) 71.3 Lymph % (Auto) (25 - 40 %) 10.6 [place] % (Auto) (3 - 14 %) 17.3 Eos % (Auto) (0 - 4 %) 0.4 Baso % (Auto) (0 - 2 %) 0.4 Plt Count, EDTA (150 - 400 K/uL) 243 PUBS MCHC (31 - 37 g/dL) 33 01/13 01/13 01/13 193 193 193 Chemistry Plasma Sodium (136 - 145 mmol/L) 120 Plasma Potassium (3.5 - 5.1 mmol/L) 6.7 Plasma Chloride (98 - 107 mmol/L) 91 CO2 (Enzymatic) (21 - 32 mmol/L) 34 BUN (7 - 18 mg/dL) 44 Creatinine (0.6 - 1.3 mg/dL) 1.3 Est GFR ( Amer) (mL/min) >60 Est GFR (Non-Af Amer) (mL/min) 56.60 Glucose (70 - 110 mg/dL) 126 Plasma Calcium (8.5 - 10.1 mg/dL) 8.2 Total Bilirubin (0.0 - 1.0 mg/dL) 0.5 AST (15 - 37 U/L) 21 ALT (12 - 78 U/L) 21 Alkaline Phosphatase (46 - 116 U/L) 240 Troponin (0.00 - 1.5 ng/mL) 0.07 B-Natriuretic Peptide (5 - 100 pg/ml) 645 Total Protein (6.4 - 8.2 g/dL) 6.4 Albumin (3.3 - 5.0 g/dL) 2.4 Hematology WBC (4.5 - 11.5 K/uL) 8.1 RBC (4.50 - 5.90 M/uL) 3.11 Hgb (13.5 - 17.5 gm/dL) 9.7 Hct (41.0 - 53.0 %) 28.5 MCV (80 - 100 fL) 92 MCH (26 - 34 pg) 31 RDW (11.6 - 14.8 %) 16.7 Neut % (Auto) (50 - 75 %) 71.4 Lymph % (Auto) (25 - 40 %) 9.6 [place] % (Auto) (3 - 14 %) 18.1 Eos % (Auto) (0 - 4 %) 0.4 Baso % (Auto) (0 - 2 %) 0.5 Plt Count, EDTA (150 - 400 K/uL) 277 PUBS MCHC (31 - 37 g/dL) 34 Microbiology Date/Time Procedure - Status Source Growth 01/13 2128 Blood Culture - RECD BLOOD 01/13 2125 Blood Culture - RECD BLOOD Assessment and Plan Problem List 1. Acute respiratory failure with hypoxia and hypercarbia Plan 12/20 both decompensated heart failure and HCAP. His respiratory status at this point is quite tenuous. Did not tolerate bipap well overnight. Plan is to repeat ABG and see how he is faring off the bipap. We can use bipap as needed, but I warned the family that if this is more due to pneumonia, the bipap is not a good option for respiratory support. They had discussed possible intubation, but with the combination of his poor baseline respiratory status due to his copd in combination with the fact that his heart failure may be due to progression of his thoracic aortic dissection, he would likely not improve to the point of successful extubation. I told them that at this time, if he clinically declines , I would NOT offer intubation. They were accepting of this for now. 2. Acute decompensated heart failure Plan With his chest pain and his pretty quick decline, the concern is that his long- standing type B dissection may have progressed to reach the coronary vasculature. Unfortunately, the patient cannot lie flat to tolerate a CTA to confirm. Furthermore, his blood pressure is not tolerating diuresis. We could potentially use pressors for his blood pressure, but I worry about adding shear stress to his dissection. At this time, holding active diuresis for now. Echo pending, which should provide us some more information. 3. HCAP (healthcare-associated pneumonia) Plan Repeat CXR today showing more c/w pneumonia per radiologist. Will place on vanc and zosyn for mrsa and pseudomonal coverage due to recent hospitalization. 4. 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 5. Atrial fibrillation with RVR Plan Dig loading at this time, and if this does not help, will need amio. 6. Hx of Clostridium difficile infection Plan Will place on PO flagyl for now due to our use of broad spectrum abx. FEN: NPO for now PPx: sub q hep Code: Medications only at this time. Will continue goals of care discussions with family throughout the day. Dispo: ICU LOC due to tenuous hemodynamic and respiratory status. E&M Codes Rounding: Inpt-High/[id number]
--- NOTE | 2017-01-14 13:18 | DIAGNOSTIC IMAGING REPORT ---
PROCEDURE: US ECHOCARDIOGRAM INDICATION: Congestive heart failure TECHNIQUE: This is a technically adequate study. The patient is in atrial fibrillation. COMPARISON: None FINDINGS: Left ventricle is normal in size. Left ventricular ejection fraction is visually estimated at 55-60%. There is moderate concentric left ventricular hypertrophy. There is decreased transitional motion of the septum. Diastolic function indeterminate. Right ventricle is mildly dilated colon with normal function. Left atrium is mildly dilated. Right atrium is mildly dilated. Aortic valve is trileaflet. There is mild bordering on moderate aortic valve insufficiency. No stenosis. Mitral valve is structurally normal with mild insufficiency. Tricuspid valve with mild bordering on moderate insufficiency. Pulmonary artery pressure is estimated at 39 mmHg. Right atrial pressure is estimated 15 mmHg. Pulmonic valve not well visualized. Pericardium there is a large circumferential pericardial effusion. There is respiratory variation and tricuspid valve inflow. There is no diastolic right ventricular collapse. IVC is plethoric. Findings are borderline for tamponade physiology Ascending aorta is dilated at 4.2 cm. IMPRESSION: Normal left ventricular ejection fraction. Moderate concentric left ventricular hypertrophy. Mild bordering on moderate aortic valve insufficiency. Mild mitral insufficiency. Mild pulmonary hypertension. Large circumferential pericardial effusion. There is only borderline tamponade physiology by echocardiographic criteria. No comparison study
--- NOTE | 2017-01-14 14:05 | Discharge Summary ---
Discharge Summary Report Admit Date 01/13/17 Discharge Date 01/14/17 Admission Diagnosis Hypoxic respiratory failure Acute decompensated heart failure HCAP hx of type B aortic dissection COPD Discharge Diagnosis Acute hypoxic respiratory failure Large pericardial effusion w/ borderline tamponade physiology and hemodynamic instability HCAP hx of type B aortic dissection COPD Brief History per H&P by admitting physician:81-year-old male who had recently spent a prolonged period of time within our hospital. He was at home for a week or so where he had decreased ability to carry on conversations today. Also, he seemed to be having a little bit harder time breathing. So family noticed him with this decrease in status, and they decided to bring him back into the hospital for further evaluation. While he was at home, they had noticed that his oxygenation was low. In spite of nebulizer treatments, he was maintaining in the 70s. In the emergency department, he was found to have an elevated CO2, low O2. Decision was made to place him on BiPAP, which he tolerated pretty well. He also was found to have a significantly abnormal chest x-ray with bilateral patchy infiltrates and a large heart consistent with either bilateral infiltrates and pneumonia versus possible congestive heart failure. Hospital Course Patient was admitted to the telemetry unit. His CXR was indicative of acute heart failure w/ superimposed pneumonia. He was placed on bipap for respiratory support and give lasix in an attempt at diuresis. Unfortunately, his blood pressure declined with this. He was also put on broad spectrum antibiotics w/ vanc/zosyn and PO flagyl for ppx against cdiff due to a history. There was concern that he may have had progression of his type b aortic dissection, so an echo was ordered as the patient could not tolerate laying flat for CT. The echo did not show any abnormality of the ascending aorta, but there was a large pericardial effusion w/ borderline tamponade physiology. His blood pressure was temporized with IVF, and he was started on pressor support once central access was obtained. His case was discussed with cardiology, who recommended transfer to a higher level of care. This was discussed with his family, who were agreeable with the plan of care. General Appearance Alert, Cooperative, Moderate distress, Pale HEENT Mucous membran moist/pink Lungs Diffuse rhonchorous sounds Cardiovascular Tachy and irregular, no murmur appreciated. Abdomen Normal bowel sounds, Soft, No tenderness Skin No Rashes Neurological nonfocal Lab/Imaging Laboratory Tests 01/14 01/14 01/14 01/14 1200 0780 6231 0533 Blood Gas Sample Site LR Total CO2 (24.0 - 30.0 mmol/L) 36.4 Cancelled ABG pH (7.35 - 7.45) 7.27 Cancelled ABG pCO2 at Pt Temp (35 - 45 mmHg) 75.1 Cancelled ABG pO2 at Pt Temp (60.0 - 80.0 mmHg) 80.6 Cancelled ABG HCO3 (20.0 - 26.0 mmol/L) 34.1 Cancelled ABG O2 Sat Calc/Saurabh (95.1 - 100.0 %) 95.4 Cancelled ABG Base Excess (-6.0 - -6.0 mmol/L) 6.6 Cancelled ABG Reduced Hgb (%) 4.5 Cancelled ABG Carboxyhemoglobin (0.5 - 1.5 %) 1.5 Cancelled ABG Methemoglobin (0.4 - 1.5 %) 0.1 Cancelled Moose Test YES Cancelled Other Total Hgb (14.0 - 18.0 g/dL) 9.0 Cancelled A-a O2 Gradient (7.0 - 14.0 mmHg) 81.4 Hgb O2 Saturation (95.0 - 100.0 %) 93.9 Cancelled Temperature (C) 37 Respiration Rate (/MIN) 14 O2 Liters/Min (0 - 20 L/MIN) 4 Vent Mode NC FiO2 (20 - 101 %) 35 Cancelled Chemistry Plasma Sodium (136 - 145 mmol/L) 129 Plasma Potassium (3.5 - 5.1 mmol/L) 6.3 Plasma Chloride (98 - 107 mmol/L) 94 CO2 (Enzymatic) (21 - 32 mmol/L) 34 BUN (7 - 18 mg/dL) 47 Creatinine (0.6 - 1.3 mg/dL) 1.4 Est GFR ( Amer) (mL/min) >60 Est GFR (Non-Af Amer) (mL/min) 51.96 Glucose (70 - 110 mg/dL) 117 Plasma Calcium (8.5 - 10.1 mg/dL) 8.0 Plasma Magnesium (1.8 - 2.4 mg/dL) 1.9 Total Bilirubin (0.0 - 1.0 mg/dL) 0.4 AST (15 - 37 U/L) 23 ALT (12 - 78 U/L) 18 Alkaline Phosphatase (46 - 116 U/L) 220 Troponin (0.00 - 1.5 ng/mL) 0.06 B-Natriuretic Peptide (5 - 100 pg/ml) 955 Total Protein (6.4 - 8.2 g/dL) 6.0 Albumin (3.3 - 5.0 g/dL) 2.1 Hematology WBC (4.5 - 11.5 K/uL) 6.9 RBC (4.50 - 5.90 M/uL) 2.95 Hgb (13.5 - 17.5 gm/dL) 9.1 Hct (41.0 - 53.0 %) 27.1 MCV (80 - 100 fL) 92 MCH (26 - 34 pg) 31 RDW (11.6 - 14.8 %) 16.5 Neut % (Auto) (50 - 75 %) 71.3 Lymph % (Auto) (25 - 40 %) 10.6 [place] % (Auto) (3 - 14 %) 17.3 Eos % (Auto) (0 - 4 %) 0.4 Baso % (Auto) (0 - 2 %) 0.4 Plt Count, EDTA (150 - 400 K/uL) 243 PUBS MCHC (31 - 37 g/dL) 33 01/14 01/13 01/13 0200 2134 1958 Blood Gas Sample Site RR Total CO2 (24.0 - 30.0 mmol/L) 37.5 36.0 ABG pH (7.35 - 7.45) 7.32 7.34 ABG pCO2 at Pt Temp (35 - 45 mmHg) 68.3 63.0 ABG pO2 at Pt Temp (60.0 - 80.0 mmHg) 60.0 48.8 ABG HCO3 (20.0 - 26.0 mmol/L) 35.4 34.0 ABG O2 Sat Calc/Saurabh (95.1 - 100.0 %) 91.3 84.6 ABG Base Excess (-6.0 - -6.0 mmol/L) 8.7 7.6 ABG Reduced Hgb (%) 8.5 15.0 ABG Carboxyhemoglobin (0.5 - 1.5 %) 1.8 2.6 ABG Methemoglobin (0.4 - 1.5 %) 0.1 -0.3 Moose Test YES YES Other Total Hgb (14.0 - 18.0 g/dL) 8.8 9.2 A-a O2 Gradient (7.0 - 14.0 mmHg) 252.6 268.9 Hgb O2 Saturation (95.0 - 100.0 %) 89.6 82.7 Respiration Rate (/MIN) 14 Vent Mode BIPAP BIPAP FiO2 (20 - 101 %) 55 55 Blood Gas Comments BIPAP 05/07 X14 +55% 01/13 Chemistry Lactic Acid (0.4 - 2.0 mmol/L) 0.8 01/13 01/13 01/13 193 193 193 Chemistry Plasma Sodium (136 - 145 mmol/L) 120 Plasma Potassium (3.5 - 5.1 mmol/L) 6.7 Plasma Chloride (98 - 107 mmol/L) 91 CO2 (Enzymatic) (21 - 32 mmol/L) 34 BUN (7 - 18 mg/dL) 44 Creatinine (0.6 - 1.3 mg/dL) 1.3 Est GFR ( Amer) (mL/min) >60 Est GFR (Non-Af Amer) (mL/min) 56.60 Glucose (70 - 110 mg/dL) 126 Plasma Calcium (8.5 - 10.1 mg/dL) 8.2 Total Bilirubin (0.0 - 1.0 mg/dL) 0.5 AST (15 - 37 U/L) 21 ALT (12 - 78 U/L) 21 Alkaline Phosphatase (46 - 116 U/L) 240 Troponin (0.00 - 1.5 ng/mL) 0.07 B-Natriuretic Peptide (5 - 100 pg/ml) 645 Total Protein (6.4 - 8.2 g/dL) 6.4 Albumin (3.3 - 5.0 g/dL) 2.4 Hematology WBC (4.5 - 11.5 K/uL) 8.1 RBC (4.50 - 5.90 M/uL) 3.11 Hgb (13.5 - 17.5 gm/dL) 9.7 Hct (41.0 - 53.0 %) 28.5 MCV (80 - 100 fL) 92 MCH (26 - 34 pg) 31 RDW (11.6 - 14.8 %) 16.7 Neut % (Auto) (50 - 75 %) 71.4 Lymph % (Auto) (25 - 40 %) 9.6 [place] % (Auto) (3 - 14 %) 18.1 Eos % (Auto) (0 - 4 %) 0.4 Baso % (Auto) (0 - 2 %) 0.5 Plt Count, EDTA (150 - 400 K/uL) 277 PUBS MCHC (31 - 37 g/dL) 34 Microbiology Date/Time Procedure - Status Source Growth 01/13 2128 Blood Culture - RECD BLOOD 01/13 2125 Blood Culture - RECD BLOOD Echo, as read by Dr. Chad Shore: IMPRESSION: Normal left ventricular ejection fraction. Moderate concentric left ventricular hypertrophy. Mild bordering on moderate aortic valve insufficiency. Mild mitral insufficiency. Mild pulmonary hypertension. Large circumferential pericardial effusion. There is only borderline tamponade physiology by echocardiographic criteria. No comparison study Discharge Instructions/Meds Patient being transferred to a higher level of care. E&M Codes Discharge: Inpt >30 min spent/[id number]
--- NOTE | 2017-01-14 15:31 | DIAGNOSTIC IMAGING REPORT ---
PROCEDURE: XR CHEST 1 VIEW INDICATION: Picc line placement TECHNIQUE: Portable AP view 03:00 p.m. COMPARISON: None. FINDINGS: Compared to chest x-rays on 01/13/2017 and 12/24/2016. FINDINGS: PICC line is in good position with the tip in the SVC. There are severe bilateral parenchymal changes with relative sparing of the upper lungs, although there has been mild improvement in pulmonary vascular congestion. Moderate to marked cardiomegaly. Tortuous and ectatic thoracic aortic arch. Thorax is unchanged. IMPRESSION: 1. Severe bilateral parenchymal changes most compatible with pneumonia. 2. Mild improvement in pulmonary vascular congestion. 3. Moderate to marked cardiomegaly chest. Consider associated congestive heart failure or pericardial effusion. 4. PICC line in good position. Results were called to Margarita at [phone]
--- NOTE | 2017-01-18 09:48 | ED DISCHARGE INSTRUCTIONS ---
Patient: KOTA ROCHE General Instructions [facility] VisitID: [id number] [address] [place] [address] 81y, M Registration Date/Time: 01/13/2017 Acute mental status change with lethargy. Chronic respiratory failure with hypoxemia (with acute exacerbation). Acute exacerbation of COPD (with hypoxia and altered LOC). Bacterial pneumonia with hypoxemia and respiratory failure. (Electronically signed by Leatha Cohen MD 01/18/2017 9:48)
--- NOTE | 2017-01-18 09:48 | ED DISCHARGE INSTRUCTIONS ---
Patient: KOTA ROCHE General Instructions [facility] VisitID: [id number] [address] [place] [address] 81y, M Registration Date/Time: 01/13/2017 Acute mental status change with lethargy. Chronic respiratory failure with hypoxemia (with acute exacerbation). Acute exacerbation of COPD (with hypoxia and altered LOC). Bacterial pneumonia with hypoxemia and respiratory failure. (Electronically signed by Leatha Cohen MD 01/18/2017 9:48)
--- NOTE | 2017-01-18 09:49 | ED MED RECONCILIATION SUMMARY ---
Patient: KOTA ROCHE Medication Reconciliation Report [facility] VisitID: [id number] [address] [place] [address] 81y, M Registration Date/Time: 01/13/2017 Weight: 70.3 kg Height/Length: 74 in. BMI: 19.9 ALLERGIES: Morphine Sulfate, Sulfa Drugs The patient's Home Medications are listed below: THE FOLLOWING MEDICATIONS NEED TO BE RECONCILED: ALPRAZolam Oral (0.25 mg) 1 tablet, max 2 tab in 24 hours ASA 81 mg, daily Digoxin Oral 0.125 mg, daily Diltiazem HCl Oral 240 mg, daily Gabapentin Oral 300 mg, 3-4 times a day Iron Oral Metoclopramide HCl Oral 5 mg, 3x a day, before meals Metoprolol Succinate ER Oral (25 mg) 1 tablet, daily Nitrostat Sublingual 0.4 mg Ondansetron Oral 4 mg Oxygen home at 2.5l/min Ranitidine HCl Oral (150 mg) 1 capsule, 2x a day Tramodol 50mg mg q 4-6 hrs prn Zolpidem Tartrate Oral 5 mg, daily The source(s) of the original Home Medication information: patient's family member The following Medications were given to the patient in the Emergency Department: Albuterol [Neb Tx] Neb TX 10 mg, administered: 01/13/2017 8:13:00 PM Rocephin [IVPB] IVPB bolus 0, then 2 gm 100 mL/hr, administered: 01/13/2017 9:01:00 PM Zithromax [IVPB] IVPB bolus 0, then 500 mg 250 mL/hr, administered: 01/13/2017 9:25:00 PM The following Medications were prescribed to the patient: None.
--- NOTE | 2017-01-18 09:49 | ED MAR SUMMARY ---
..... Medication Administration Record [facility] [address] [place] [address] Patient: KOTA ROCHE Visit ID: [id number] 81y, M Weight: 70.3 kg Height/Length: 74 in BMI: 19.9 ALLERGIES: Morphine Sulfate, Sulfa Drugs Given 20:13 01/13/2017 Priyank Gottlieb R.N. Medication Administered: ALBUTEROL [NEB TX], Dose: 10 mg Nebulizer Neb TX. Medication Ordered: Albuterol Neb Tx 10 mg (NOW). Start 21:01 01/13/2017 Priyank Gottlieb R.N., Stop 21:20 01/13/2017 Priyank Gottlieb R.N. Medication Administered: ROCEPHIN [IVPB] (CEFTRIAXONE SODIUM), Dose: 2 gm IVPB over 30 minute(s), Rate: 100 mL/hr, Dispensed: 50 mL bag, Site: #1 right forearm. Medication Ordered: Rocephin IV 2 gm/50mL (NOW). Start 21:25 01/13/2017 Priyank Gottlieb R.N., Continued Upon Admission 22:46 01/13/2017 Priyank Gottlieb R.N. Medication Administered: ZITHROMAX [IVPB] (AZITHROMYCIN), Dose: 500 mg IVPB over 1 hour(s), Rate: 250 mL/hr, Dispensed: 250 mL bag, Site: #1 right forearm. Medication Ordered: Zithromax IV 500 mg/250 mL (NOW).
--- NOTE | 2017-01-18 09:49 | ED MAR SUMMARY ---
..... Medication Administration Record [facility] [address] [place] [address] Patient: KOTA ROCHE Visit ID: [id number] 81y, M Weight: 70.3 kg Height/Length: 74 in BMI: 19.9 ALLERGIES: Morphine Sulfate, Sulfa Drugs Given 20:13 01/13/2017 Priyank Gottlieb R.N. Medication Administered: ALBUTEROL [NEB TX], Dose: 10 mg Nebulizer Neb TX. Medication Ordered: Albuterol Neb Tx 10 mg (NOW). Start 21:01 01/13/2017 Priyank Gottlieb R.N., Stop 21:20 01/13/2017 Priyank Gottlieb R.N. Medication Administered: ROCEPHIN [IVPB] (CEFTRIAXONE SODIUM), Dose: 2 gm IVPB over 30 minute(s), Rate: 100 mL/hr, Dispensed: 50 mL bag, Site: #1 right forearm. Medication Ordered: Rocephin IV 2 gm/50mL (NOW). Start 21:25 01/13/2017 Priyank Gottlieb R.N., Continued Upon Admission 22:46 01/13/2017 Priyank Gottlieb R.N. Medication Administered: ZITHROMAX [IVPB] (AZITHROMYCIN), Dose: 500 mg IVPB over 1 hour(s), Rate: 250 mL/hr, Dispensed: 250 mL bag, Site: #1 right forearm. Medication Ordered: Zithromax IV 500 mg/250 mL (NOW).
--- NOTE | 2017-01-18 09:49 | ED MED RECONCILIATION SUMMARY ---
Patient: KOTA ROCHE Medication Reconciliation Report [facility] VisitID: [id number] [address] [place] [address] 81y, M Registration Date/Time: 01/13/2017 Weight: 70.3 kg Height/Length: 74 in. BMI: 19.9 ALLERGIES: Morphine Sulfate, Sulfa Drugs The patient's Home Medications are listed below: THE FOLLOWING MEDICATIONS NEED TO BE RECONCILED: ALPRAZolam Oral (0.25 mg) 1 tablet, max 2 tab in 24 hours ASA 81 mg, daily Digoxin Oral 0.125 mg, daily Diltiazem HCl Oral 240 mg, daily Gabapentin Oral 300 mg, 3-4 times a day Iron Oral Metoclopramide HCl Oral 5 mg, 3x a day, before meals Metoprolol Succinate ER Oral (25 mg) 1 tablet, daily Nitrostat Sublingual 0.4 mg Ondansetron Oral 4 mg Oxygen home at 2.5l/min Ranitidine HCl Oral (150 mg) 1 capsule, 2x a day Tramodol 50mg mg q 4-6 hrs prn Zolpidem Tartrate Oral 5 mg, daily The source(s) of the original Home Medication information: patient's family member The following Medications were given to the patient in the Emergency Department: Albuterol [Neb Tx] Neb TX 10 mg, administered: 01/13/2017 8:13:00 PM Rocephin [IVPB] IVPB bolus 0, then 2 gm 100 mL/hr, administered: 01/13/2017 9:01:00 PM Zithromax [IVPB] IVPB bolus 0, then 500 mg 250 mL/hr, administered: 01/13/2017 9:25:00 PM The following Medications were prescribed to the patient: None.
== END 2017-01-14 18:45 | disposition short-term general hospital (02) | DRG 291 ==
LOC: ED SRH 19:12 → TRANS SRH 21:18 → CC SRH 21:24
PROVIDERS: ADMIT Emergency Medicine
PROC: 02HV33Z Insertion of Infusion Device into Superior Vena Cava, Percutaneous Approach (ICD-10-PCS; principal; 2017-01-13)
PROC: 5A09357 Assistance with Respiratory Ventilation, Less than 24 Consecutive Hours, Continuous Positive Airway Pressure (ICD-10-PCS; 2017-01-14)
DX: I11.0 Hypertensive heart disease with heart failure (principal); J44.0 Chronic obstructive pulmonary disease with (acute) lower respiratory infection; J18.9 Pneumonia, unspecified organism; Y95 Nosocomial condition; J96.21 Acute and chronic respiratory failure with hypoxia; I71.01 Dissection of thoracic aorta; I31.3 Pericardial effusion (noninflammatory); J44.1 Chronic obstructive pulmonary disease with (acute) exacerbation; E87.5 Hyperkalemia; I48.91 Unspecified atrial fibrillation; Z98.890 Other specified postprocedural states; K21.9 Gastro-esophageal reflux disease without esophagitis; D64.9 Anemia, unspecified; Z87.891 Personal history of nicotine dependence; Z93.1 Gastrostomy status